=== PATIENT | male | born 1950 | race Caucasian/White ===

== ENCOUNTER 2018-09-26 13:04 | Inpatient (IN) | payer MEDICARE, OTHER ==
[2018-09-26] MEDS: NS 0.9% 1000 ML* 1,000 ML IV ONE ×2 (13:32→13:44)
[2018-09-26] MEDS ORDERED: Levofloxacin 750 MG IVPREMIX(* 750 MG/150 ML BAG IVPB ONE (13:35)
[2018-09-26] MEDS ORDERED: NS 0.9% 1000 ML* 1,000 ML IV ONE ×4 (13:35→23:45)
--- NOTE | 2018-09-26 13:45 | ED ---
Shortness of Breath - HPI Summary HPI Summary: A 68 y/o male brought in by [facility] presents to [facility] with a chief complaint of SOB on 09/26/18. He has been sitting in a chair for 4 days. He also c/o cough. He denies any current fevers but states he has had fevers in the past. He lives at home with his . He has a Hx of throat cancer and is in remission. He denies a Hx of A-fib. - History of Current Complaint Hx Obtained From: Patient, EMS Onset/Duration: Sudden Onset, Lasting Days, Still Present Current Severity: Moderate Dyspnea At: Rest Aggrevating Factors: Nothing Alleviating Factors: Nothing Associated Signs & Symptoms: Cough (Nonproductive) - Allergy/Home Medications Allergies/Adverse Reactions: Allergies Allergy/AdvReac Type Severity Reaction Status Date / Time No Known Allergies Allergy Verified 05/10/13 14:25 Home Medications: Home Medications Levothyroxine TAB* [Synthroid TAB*] 75 mcg PO 0800 09/26/18 [History Confirmed 09/26/18] Levothyroxine TAB* [Synthroid TAB*] 75 mcg PO SEE INSTRUCTIONS 09/26/18 [ History Confirmed 09/26/18] Valsartan/HCTZ 160/12.5(NF) [Diovan HCT 160/12.5 (NF)] 1 tab PO DAILY 09/26/18 [ History Confirmed 09/26/18] amLODIPine TAB* [Norvasc 5 mg TAB*] 10 mg PO DAILY 09/26/18 [History Confirmed 09/26/18] PMH/Surg Hx/FS Hx/Imm Hx Musculoskeletal History: Reports: Hx Rheumatoid Arthritis - CLEARED UP PER PATIENT Sensory History: Denies: Hx Deafness - Cancer History Cancer Type, Location and Year: NECK CA Hx Chemotherapy: Yes - Surgical History Surgery Procedure, Year, and Place: 2008 RESECTION OF RIGHT SIDE OF NECK FOR CA Infectious Disease History: No Infectious Disease History: Denies: Traveled Outside the [place] in Last 30 Days - Family History Known Family History: Negative: Blood Disorder - Social History Hx Tobacco Use: No Review of Systems Negative: Fever Positive: Shortness Of Breath, Cough All Other Systems Reviewed And Are Negative: Yes Physical Exam - Summary Physical Exam Summary: Appearance: The patient is well-nourished in no acute distress and in no acute pain. Skin: Tense HEENT: The head is normocephalic and atraumatic. The pupils are equal and reactive. The conjunctivae are clear and without drainage. Nares are patent and without drainage. Mouth reveals moist mucous membranes and the throat is without erythema and exudate. The external ears are intact. The ear canals are patent and without drainage. The tympanic membranes are intact. Neck: The neck is supple with full range of motion and non-tender. There are no carotid bruits. There is no neck vein distension. Respiratory: Chest is non-tender. Decreased breath sounds left upper respiratory sounds in lung campos Cardiovascular:irregulary irregular HR. There is no murmur or rub auscultated. There is no peripheral edema and pulses are symmetrical and equal. Abdomen: The abdomen is soft and non-tender. There are normal bowel sounds heard in all four quadrants and there is no organomegaly palpated. Musculoskeletal: There is no back tenderness noted. Extremities are non-tender with full range of motion. There is good capillary refill. There is no peripheral edema or calf tenderness elicited. Neurological: Patient is alert and oriented to person, place and time. The patient has symmetrical motor strength in all four extremities. Cranial nerves are grossly intact. Deep tendon reflexes are symmetrical and equal in all four extremities. Psychiatric: The patient has an appropriate affect and does not exhibit any anxiety or depression. Triage Information Reviewed: Yes Vital Signs On Initial Exam: Initial Vitals Temp Pulse Resp BP Pulse Ox 98.0 F 91 25 82/49 72 09/26/18 13:28 09/26/18 13:28 09/26/18 13:28 09/26/18 13:28 09/26/18 13:28 Vital Signs Reviewed: Yes Diagnostics - Vital Signs Vital Signs Temp Pulse Resp BP Pulse Ox 09/26/18 13:28 98.0 F 91 25 82/49 72 - Laboratory Result Diagrams: 09/26/18 14:05 09/26/18 14:05 Lab Statement: Any lab studies that have been ordered have been reviewed, and results considered in the medical decision making process. - Radiology CXR Radiology Interpretation Completed By: Radiologist Summary of Radiographic Findings: NEW LEFT LUNG INFILTRATE AND PLEURAL EFFUSION. RECOMMEND FOLLOW-UP CHEST. X-RAYS TO RESOLUTION. ED physician has reviewed this imaging report. - EKG 13:29 Cardiac Rate: Other Rate - Atrial Fibrillation at 91 bpm EKG Rhythm: Atrial Fibrillation Summary of EKG Findings: A-fib with controlled response. Re-Evaluation - Re-Evaluation First Eval Re-Evaluation Time: 13:25 Change: Unchanged Comment: BP 67 systolic bilateral radial pulses but he reportedly is feeling better. Course/Dx - Course Course Of Treatment: Mr. Horn presented to the emergency department by ambulance with a rather vague story. He had apparently been mostly sitting in a chair for the last 3 or 4 days secondary to shortness of breath. He was a bit pale on presentation with a somewhat low blood pressure and no tachycardia. He wasn't very good historian. IVs were initiated and he was given IV fluid while labs and chest x-ray obtained. He was noted to have a large left sided infiltrate on chest x-ray as well as a leukocytosis and a new renal failure. His BUN was almost 100 and his creatinine was 2-1/2 which was new from the summer. However his ratio was about 30 and this seem likely to be all from dehydration. Fluids were continued and his pressures remained soft although he was never tachycardic after the first liter of fluid his color returned and he was more awake and cooperative. He was given Levaquin IV after the x-ray was obtained as well. The hospitalist service was contacted and Dr. Mares consult to Dr. Crump into the department and evaluated the patient. - Diagnoses Provider Diagnoses: PNA (pneumonia), Sepsis - Physician Notifications Discussed Care of Patient With: Nellie Mares Time Discussed With Above Provider: 13:40 Instructed by Provider To: Admit As Inpatient - Critical Care Time Critical Care Time: 30-74 min Discharge - Sign-Out/Discharge Documenting (check all that apply): Patient Departure - admit - Discharge Plan Condition: Fair Disposition: ADMITTED TO [facility] - Billing Disposition and Condition Condition: FAIR Disposition: Admitted to [facility] - Attestation Statements Document Initiated by Scribe: Yes Documenting Scribe: Sebastien Lpoes Provider For Whom Angel is Documenting (Include Credential): Khalif King MD Scribe Attestation: Sebastien Harman, scribed for Khalif King MD on 09/26/18 at 2100. Scribe Documentation Reviewed: Yes Provider Attestation: The documentation as recorded by the Sebastien zavala accurately reflects the service I personally performed and the decisions made by me, Khalif King MD Status of Scribe Document: Viewed
[2018-09-26 14:27] LABS: Hematocrit 39 % (42-52); Hemoglobin 12.5 g/dl (14.0-18.0); Mean Corpuscular HGB Conc 32 g/dl (31-36); Mean Corpuscular Hemoglobin 29 pg (27-31); Mean Corpuscular Volume 90 fL (80-94); Mean Platelet Volume 7.9 fL (7.4-10.4); Platelet Count 309 10^3/ul (150-450); Red Blood Count 4.29 10^6/ul (4.00-5.40); Red Cell Distribution Width 15 % (10.5-15); White Blood Count 19.7 10^3/ul (3.5-10.8)
[2018-09-26 14:29] LABS: INR 1.1 (0.77-1.02)
[2018-09-26 14:42] LABS: Albumin 3.1 g/dL (3.2-5.2); BUN/Creatinine Ratio 28.4 (8-20); C Reactive Protein 366.29 mg/L (<8.01); Calcium 8.5 mg/dL (8.6-10.3); EGFR Non-African American 17.8 (>60); Globulin 3.1 g/dL (2-4); Potassium 4.3 mmol/L (3.5-5.0); Total Bilirubin 0.8 mg/dL (0.2-1.0); Total Protein 6.2 g/dL (6.4-8.9)
[2018-09-26 14:45] LABS: ABS Basophils 0.1 10^3/ul (0-0.2); ABS Eosinophils 0 10^3/ul (0-0.6); ABS Lymphocytes 0.3 10^3/ul (1.0-4.8); ABS Monocytes 1.1 10^3/ul (0-0.8); ABS Neutrophils 18.1 10^3/ul (1.5-7.7)
[2018-09-26 14:47] LABS: Immature Granulocytes 9 % (0-9); Lymphocytes % 1 %; Monocytes % 2 %; Neutrophil % 88 %
[2018-09-26 14:49] LABS: ABS Neutrophils 19.1 10^3/ul (1.5-7.7)
[2018-09-26 15:26] LABS: TSH (Thyroid Stimulating Horm) 5.16 mcIU/mL (0.34-5.60)
[2018-09-26] MEDS ORDERED: Norepinephrine 16MCG/ML IVPRE* 4,000 MCG/250 ML BAG IV ONE (15:54)
[2018-09-26] MEDS ORDERED: Norepinephrine 16MCG/ML IVPRE* 4,000 MCG/250 ML BAG IV SCH ×2 (16:00)
[2018-09-26 16:43] LABS: Urine Appearance Cloudy; Urine Bilirubin Negative (Negative); Urine Blood Negative (Negative); Urine Color Yellow; Urine Glucose Negative (Negative); Urine Ketones Negative (Negative); Urine Nitrite Negative (Negative); Urine Protein Negative (Negative); Urine Specific Gravity 1.015 (1.010-1.030); Urine Urobilinogen Negative (Negative)
[2018-09-26] MEDS ORDERED: Ondansetron INJ* 2 MG/ML VIAL IV PRN (16:51)
--- NOTE | 2018-09-26 16:56 | CONSULT ---
Consult Consult: Consultation Note -- Critical Care Requesting Physician: Dr Mares Reason for consult: septic shock, pneumonia Limitations in history/physical: none Date of consult: 09/26/2018 HPI: 68y M w/pmhx of HTN, Hypothyroidism, Throat cancer s/p Right throat resection 2008; comes to ER for fatigue and not feeling well. States he has been at home and in chair since yesterday. As per family , he has been tired all week and probably worse yesterday. They do not live with him. He states no fever/chills. cough+, no sputum/sob/cp. no nausea/vom/diarrhea. poor po intake+ . tired+, fatigue+. no cramps. no dizziness/syncope. no recent admissions, no influenza/pneumococcal vaccine given. no recent travel outside or sick contacts. In Er, he was tmax 98, hypotensive 80s, tachycardic, placed on NC. Started on sepsis protocol, IV abx. CXR demosntrated left sided effusion/ infiltrate+. He was subsequently started on IV levophed after 4-5 L of NS given without much effect. noted to have low urine output in ER. Sister at bedside also giving more information. ROS: negative except for pertinent positives mentioned above. PMHx: HTN, Hypothyroidism, Throat cancer s/p Right throat resection 2008 PSHx: Right neck resection 2008 for throat Ca Family History: negative Social History: Alcohol-none, Smoking-active, Drug use-none Allergies: Allergies Allergy/AdvReac Type Severity Reaction Status Date / Time No Known Allergies Allergy Verified 05/10/13 14:25 Home Medications: Levothyroxine TAB* [Synthroid TAB*] 75 mcg PO 0800 09/26/18 [History Confirmed 09/26/18] Levothyroxine TAB* [Synthroid TAB*] 75 mcg PO SEE INSTRUCTIONS 09/26/18 [ History Confirmed 09/26/18] Valsartan/HCTZ 160/12.5(NF) [Diovan HCT 160/12.5 (NF)] 1 tab PO DAILY 09/26/18 [ History Confirmed 09/26/18] amLODIPine TAB* [Norvasc 5 mg TAB*] 10 mg PO DAILY 09/26/18 [History Confirmed 09/26/18] Tele: NSR Vitals: Vital Signs Temp 98.0 F 09/26/18 13:05 Pulse 90 09/26/18 16:10 Resp 20 09/26/18 14:30 BP 105/62 09/26/18 16:10 Pulse Ox 100 09/26/18 16:10 Intake & Output 09/25/18 09/26/18 09/26/18 18:59 06:59 18:59 Intake Total 4150 Balance 4150 Weight 72.575 kg Intake: IV Fluids 4150 O2/Vent: NC 2 L Infusions: Levophed 6, NS bolus Current Medications: Acetaminophen (Tylenol Tab*) 650 mg PO Q4H PRN PRN Reason: FEVER/PAIN Albuterol/Ipratropium (Duoneb (Albuterol 2.5 Mg/Ipratropium 0.5 Mg)) 1 neb INH [id number] AWAKE PRN PRN Reason: sob/wheexing Heparin Sodium (Porcine) (Heparin Vial(*)) 5,000 units SUBCUT Q8HR TANMAY Levofloxacin/Dextrose (Levaquin 250 Mg Ivpremx(*)) 250 mg in 50 mls @ 50 mls/ hr IVPB Q24H TANMAY Norepinephrine Bitartrate 4 mg (/ Sodium Chloride) 254 mls @ 22.86 mls/hr IV .INITIAL RATE TANMAY; Protocol Physical Exam: General: awake, alert, no distress, no diaphoresis Head: normocephalic, atraumatic HEENT: no pallor, no icterus, DRY mucous membranes Neck: soft, supple, no jvd, no stridor CVS: normal rate, regular, no murmur Resp: bilateral air entry, left lower lobe rhales++, no wheeze, no rhonchi, no acc muscle use Abdomen: soft, nontender, nondistended, bowel sounds present Ext: pulses+, warm, no edema Skin: intact, DRY Neuro: awake, alert, orientedx3, moving all extremities, no gross focal deficit Labs: Laboratory Results - last 24 hr 09/26/18 09/26/18 09/26/18 14:05 14:05 14:05 WBC 19.7 H RBC 4.29 Hgb 12.5 L Hct 39 L MCV 90 MCH 29 MCHC 32 RDW 15 Plt Count 309 MPV 7.9 Neut % (Auto) Not Reportable Lymph % (Auto) Not Reportable Bulloch % (Auto) Not Reportable Eos % (Auto) Not Reportable Baso % (Auto) Not Reportable Absolute Neuts (auto) 18.1 H Absolute Lymphs (auto) 0.3 L Absolute Monos (auto) 1.1 H Absolute Eos (auto) 0 Absolute Basos (auto) 0.1 Absolute Nucleated RBC Not Reportable Immature Gran % 9 Neutrophils % 88 Band Neutrophils % 9 H Lymphocytes % 1 Monocytes % 2 Nucleated RBC % Not Reportable Abs Neuts (Manual) 19.1 H Abs Lymphs (Manual) 0.2 L Abs Monocytes (Manual) 0.4 Normal RBC Morphology Normal INR (Anticoag Therapy) Sodium 132 L Potassium 4.3 Chloride 100 L Carbon Dioxide 20 L Anion Gap 12 H BUN 98 H Creatinine 3.45 H Est GFR ( Amer) 21.5 Est GFR (Non-Af Amer) 17.8 BUN/Creatinine Ratio 28.4 H Glucose 134 H Lactic Acid 2.1 H* Calcium 8.5 L Magnesium 2.0 Total Bilirubin 0.80 AST 14 ALT 14 Alkaline Phosphatase 74 Total Creatine Kinase 21 Troponin I 0.02 C-Reactive Protein 366.29 H B-Natriuretic Peptide Total Protein 6.2 L Albumin 3.1 L Globulin 3.1 Albumin/Globulin Ratio 1.0 TSH 5.16 Urine Color Urine Appearance Urine pH Ur Specific [place] Urine Protein Urine Ketones Urine Blood Urine Nitrate Urine Bilirubin Urine Urobilinogen Ur Leukocyte Esterase Urine Glucose 09/26/18 09/26/18 09/26/18 14:05 14:05 16:28 WBC RBC Hgb Hct MCV MCH MCHC RDW Plt Count MPV Neut % (Auto) Lymph % (Auto) Bulloch % (Auto) Eos % (Auto) Baso % (Auto) Absolute Neuts (auto) Absolute Lymphs (auto) Absolute Monos (auto) Absolute Eos (auto) Absolute Basos (auto) Absolute Nucleated RBC Immature Gran % Neutrophils % Band Neutrophils % Lymphocytes % Monocytes % Nucleated RBC % Abs Neuts (Manual) Abs Lymphs (Manual) Abs Monocytes (Manual) Normal RBC Morphology INR (Anticoag Therapy) 1.10 H Sodium Potassium Chloride Carbon Dioxide Anion Gap BUN Creatinine Est GFR ( Amer) Est GFR (Non-Af Amer) BUN/Creatinine Ratio Glucose Lactic Acid Calcium Magnesium Total Bilirubin AST ALT Alkaline Phosphatase Total Creatine Kinase Troponin I C-Reactive Protein B-Natriuretic Peptide 171 H Total Protein Albumin Globulin Albumin/Globulin Ratio TSH Urine Color Yellow Urine Appearance Cloudy Urine pH 5.0 Ur Specific [place] 1.015 Urine Protein Negative Urine Ketones Negative Urine Blood Negative Urine Nitrate Negative Urine Bilirubin Negative Urine Urobilinogen Negative Ur Leukocyte Esterase Negative Urine Glucose Negative Imaging: CXR 09/26 - left sided lower lobe infiltrate/effusion Assessment: 68y M w/pmhx of HTN, Hypothyroidism, Throat cancer s/p Right throat resection 2008; comes to ER for fatigue and not feeling well. States he has been at home and in chair since yesterday. As per family , he has been tired all week and probably worse yesterday. They do not live with him. He states no fever/chills. cough+, no sputum/sob/cp. no nausea/vom/diarrhea. poor po intake+ . tired+, fatigue+. no cramps. no dizziness/syncope. no recent admissions, no influenza/pneumococcal vaccine given. no recent travel outside or sick contacts. In Er, he was tmax 98, hypotensive 80s, tachycardic, placed on NC. Started on sepsis protocol, IV abx. CXR demosntrated left sided effusion/ infiltrate+. He was subsequently started on IV levophed after 4-5 L of NS given without much effect. noted to have low urine output in ER. Sister at bedside also giving more information. -Severe Sepsis with Shock -Left lower lobe pneumonia with pleural effusion -ISABEL -Hypovolemia h/o throat ca s/p neck dissection 2008 Plan: Neuro- awake/alert. delirium prec. avoid bdz. CVS- severe sepsis, shock+. s/p 4-5L NS, now on levophed. Maintain MAP 60-65 with SBP>90. Monitor urine output. Start NS 75cc/hr. Trend LA. IV abx. hold antihypertensives. TTE at bedside to be performed to eval overall LV functiion. Central line, check mixed venous o2 sat. Resp- on 2 L NC, no distress. no wheezing. bronchodilators prn. h/o smoking+, nicotine patch prn if needed. IV abx for CAP coverage. Send influenza swab. Sputum culture. Will ultrasound left lung to eval for effusion. Possible CT chest. ID- tmax 98. wbc 19 with bandemia 11. CXR left effusion/infiltrate+. sputum+. hypotensive with ISABEL. no recent admissions, with throat Ca years back. check influenza. send legionella/strept/myco ag. s/p Levaquin IV in ER. Change to Ceftriaxone 1gm daily and Azithromycin 500mg daily tomorrow AM. GI- regular unrestricted. he states soem difficulty swallowing at times. obtain formal swallow to eval if any diet modification necessary otherwise. GI proph Renal- ISABEL likely from poor po intake, volume depletion and hypotension/shock. IVF bolus, IVF hydration NS. IV pressors to maintain perfusion. Rowan+ to be placed. monitor urine output. Mild acidosis+, negative LA, likely from ISABEL. Hyponatremia+, 2/2 to poor intake. Heme- hg 12. plt stable. DVT prohp with heparin/scd. Endo- check hba1c and tsh. Musculsk- pressure ulcer prophylaxis. Bedrest. Wounds- none Nutrition- regular diet DVT prophylaxis: heparin sq/scd GI prophylaxis: h2b Central Line: no Arterial Line: no Rowan Cathetor: yes Disposition: ICU for septic shock Code Status: full code Total Critical Care time is 50 minutes, excluding procedures/teaching Josias Crump MD [employer] (Electronically Signed)
--- NOTE | 2018-09-26 18:28 | PN ---
Progress Note - Progress Note Date of Service: 09/26/18 Note: Central Line Procedure Note Indication: venous access, frequent blood draws Diagnosis: septic shock, pneumonia Performed by: Josias Crump MD Consent: Informed ; placed in bedside chart Risks of procedure were explained if possible, all risks of pain/discomfort, bleeding, infection, PTX, Hemotx, need for chest tube, air/wire embolism, vessel injury, , and failed procedure disclosed and understanding verbalized [place] Protocol: Time-out was performed and the correct patient and site were verified - Prior labs/history was reviewed prior to procedure - Full sterile precautions with chlorhexidine/full drapes/gowns/gloves utilized - Right Femoral Vein visualized with ultrasound - Vessel accessed under ultrasound guidance with return of nonpulsatile blood. A guidewire was passed into vessel and confirmed in vessel with ultrasound. 1 attempt was made to access vessel. Vessel was dilated and cathetor was passed over wire into vessel. All ports demonstrated good blood return and flushed. Catheter was sutured to site and dressing applied. Adequate hemostasis was achieved EBL <5 cc No immediate complications noted, patient tolerated procedure well. Procedure Note - Left Subclavien vein was attempted for Central line placement; access obtained but after loosing access, attempted to locate vein again but not able to , mild hematoma while in trendelenburg position. hematoma resolved after 1-2 min. No resp distress or hemodyn changes noted. Site changed to Right femoral vein site as above procedure note dictates. CXR to eval for any PTX from left SC attempt. Josias Crump MD Title I Coordinator (Electronically Signed)
--- NOTE | 2018-09-26 18:29 | PN ---
Progress Note - Progress Note Date of Service: 09/26/18 Note: Arterial Line Procedure Note Indication: invasive hemodynamic monitoring Diagnosis: septic shock, pneumonia Performed by: Josias Crump MD Consent: Emergent [place] Protocol: Time-out was performed and the correct patient and site were verified - Prior labs/history was reviewed prior to procedure - Full sterile precautions with chlorhexidine/full drapes/gowns/gloves utilized - Right femoral artery visualized with US - Vessel accessed with return of pulsatile blood. One attempt was made to access vessel. A cathetor was threaded over wire into vessel. Good arterial waveform was observed on monitor. - Arterial Catheter was sutured to site; dressing applied to site. EBL <5 cc No immediate complications noted, patient tolerated procedure well. Josias Crump MD School Office Assistant (Electronically Signed)
[2018-09-26] MEDS: Heparin VIAL(*) 5000 UNITS/ML VIAL (FIVE THOUSAND) SUBCUT SCH (22:05)
--- NOTE | 2018-09-26 22:24 | HP ---
CC: Dr. Laguerre; Dr. Crump.* HISTORY AND PHYSICAL: DATE OF ADMISSION: 09/26/18 TIME OF ADMISSION: 4 o'clock p.m. CHIEF COMPLAINT: "I was out of it." HISTORY OF PRESENT ILLNESS: This is a 68-year-old man with history of hypertension and hypothyroidism and throat cancer, who presented to the emergency department after his partner insisted because he has been so "out of it" for the last week. He has trouble describing many more of his symptoms and he is quite drowsy. His sister is in the room and helped to provide some of the history. He reports going to [place] last weekend to visit his partner in the hospital and he thinks he picked an infection there. Over the past week , he said he has had shivers and he has mostly been sitting in his chair for the past week with weakness and just feeling not like himself. He also has had a cough productive of brown sputum for 1 week. He does not think he felt feverish. He complained of diarrhea for the past week and ongoing lethargy. He denies headache, abdominal pain, chest pain, shortness of breath, or skin changes. PAST MEDICAL HISTORY: 1. Hypertension. 2. Hypothyroidism. 3. He has history of throat cancer for which he had a dissection and radiation. He cannot tell me much more about his throat cancer. PAST SURGICAL HISTORY: Dr. Schultz did his throat cancer surgery. SOCIAL HISTORY: He smokes 10 to 15 cigarettes per day. He denies alcohol or other illicit drug use. His emergency contact is his partner, Brenda. Brenda' s phone number is [phone]. REVIEW OF SYSTEMS: Also positive for poor appetite and weight loss over the past week. Remainder of the 14-point review of systems is negative other than the HPI. PHYSICAL EXAMINATION GENERAL: Thin, ill-appearing man who appears older than his stated age. VITAL SIGNS: Temperature 98 degrees, heart rate 100, pulse ox100% on Vapotherm , his initial blood pressure was 82/49, after 4 L of IV fluid, his blood pressure is 84/48. HEENT: His pupils are 2 mm bilaterally and reactive to light. His oral mucosa is dry. His posterior pharynx is coated with thick scherer, brown sputum and mottled. NECK: No JVP. No adenopathy. His right neck has old incisions and is atrophied. LUNGS: He has rhonchi on the right. CHEST: He is in a regular rhythm. No murmurs. ABDOMEN: Soft, nontender, and nondistended. EXTREMITIES: No edema. No rashes or skin changes. His extremities are cool. NEUROLOGIC: He is oriented x3 and follows all commands. He answers all my questions, but is drowsy. LABORATORY DATA/DIAGNOSTIC STUDIES: White blood cells 19.7, hemoglobin 12.5, platelets 309. INR 1.1. Sodium 132, potassium 4.3, chloride 100, bicarb 20, BUN 98, creatinine 3.45, glucose 134. Lactic acid 2.1. Troponin 0.02. TSH 5.16. Chest x-ray, new left lung infiltrate and pleural effusion, recommended followup chest x-rays to resolution. EKG is atrial flutter versus atrial fib? It is in normal axis with normal intervals except for [place] interval and no ST or T wave changes. ASSESSMENT AND PLAN: This is a 68-year-old man with history of hypertension and throat cancer who presents to the emergency department with 1 week of cough and lethargy and is found to have a new pneumonia, hypotension, and hypoxia. 1. Severe sepsis/Septic Shock with evidence of end-organ damage and acute kidney injury with a pulmonary source. He has been given levofloxacin in the emergency department and has already received 4 L of fluids and remains hypotensive at this time. I have contacted Dr. Crump and requested a central line placement and I have started peripheral Levophed at 6 mcg/hour. After the central line is placed, we will be able to increase the rate and titrate up to a goal MAP of over 60. Blood cultures have been sent. I am also sending sputum , throat, and urine cultures. He needs a Rowan catheter for "in and out monitoring" and admission to the ICU for vasopressor support. 2. New onset of atrial fibrillation. His EKG is not completely convincing of AFib, so I am repeating an EKG and getting an echo for tomorrow. As of now, his CHADS2-VASc score is 2. So, he would be recommended for anticoagulation; however, I am repeating EKG to confirm the diagnosis of atrial fibrillation. 3. Acute hypoxic respiratory failure. He is currently requiring Vapotherm and he is agreeable to intubation should it be required. His work is breathing is comfortable right now. I am treating him with antibiotics and nebulizers as needed. He has a long smoking history, though he does not carry a diagnosis of chronic obstructive pulmonary disease or asthma. He may have some underlying parenchymal disease predisposing him to worsening respiratory failure. 4. Acute renal failure. I suspect this is related to volume depletion and severe sepsis. Again, he has received 4 L of normal saline in the emergency department and I am inserting a Rowan catheter for urine output monitoring. 5. Hypertension. His antihypertensives are on hold in the setting of severe sepsis. 6. Tobacco use. He declines a nicotine patch. 7. DVT prophylaxis. Heparin subcu. 8. Diet. Unrestrictive as tolerated. 9. Mr. Horn is being admitted to the ICU with a consultation by Dr. Crump and he agrees to accept the patient under his care. [id number]/[facility] #: [id number] MTDD
[2018-09-26] MEDS ORDERED: Succinylcholine* 20 MG/ML 10 ML VIAL ONE (23:10)
[2018-09-26] MEDS ORDERED: Etomidate* 2 MG/ML 20 ML VIAL (40 MG) ONE (23:16)
[2018-09-26] MEDS ORDERED: Propofol* 100 ML ONE (23:18)
[2018-09-26] MEDS: Propofol* 100 ML IV SCH (23:20)
--- NOTE | 2018-09-26 23:27 | PN ---
Progress Note - Progress Note Date of Service: 09/26/18 Note: Asked to see pt due to hypoxia despite maxed out vapotherm settings. Pt placed on BiPAP with plan to intubate. Dr. Lo intubated on 1st attempt. OG placed. Following intubation the patient developed increased HR and BP (had been hypotensive). He began to cough and a significant amount of sputum was suctioned out. It appears he had a mucous plug as no breath sounds were initially heard at the left base, after suctioning, decreased breath sounds heard at L base.
[2018-09-26] MEDS ORDERED: LORazepam INJ* 2 MG/ML 1 ML VIAL IV PUSH ONE (23:30)
[2018-09-26] MEDS ORDERED: LORazepam INJ* 2 MG/ML 1 ML VIAL ONE (23:33)
--- NOTE | 2018-09-27 00:46 | ED ---
Progress - Progress Note Progress Note: Time: 0 I was called by ICU nurses and hospitalist, Dr. Hsu to intubate patient. Procedure note: Endotracheal intubation, Using etomidate and succinyl choline for RSI. Using Glidescope, endotracheal tube #8. Was passed between the vocal cords under indirect visualization using Glidescope. Lip line at 23 cm. Capnography color change is positive for endotracheal placement. Bilateral breath sounds. No complications. Re-Evaluation - Re-Evaluation First Eval Re-Evaluation Time: 13:25 Change: Unchanged Comment: BP 67 systolic bilateral radial pulses but he reportedly is feeling better. Course/Dx - Course Course Of Treatment: Mr. Horn presented to the emergency department by ambulance with a rather vague story. He had apparently been mostly sitting in a chair for the last 3 or 4 days secondary to shortness of breath. He was a bit pale on presentation with a somewhat low blood pressure and no tachycardia. He wasn't very good historian. IVs were initiated and he was given IV fluid while labs and chest x-ray obtained. He was noted to have a large left sided infiltrate on chest x-ray as well as a leukocytosis and a new renal failure. His BUN was almost 100 and his creatinine was 2-1/2 which was new from the summer. However his ratio was about 30 and this seem likely to be all from dehydration. Fluids were continued and his pressures remained soft although he was never tachycardic after the first liter of fluid his color returned and he was more awake and cooperative. He was given Levaquin IV after the x-ray was obtained as well. The hospitalist service was contacted and Dr. Mares consult to Dr. Crump into the department and evaluated the patient. - Diagnoses Provider Diagnoses: PNA (pneumonia), Sepsis - Provider Notifications Time Discussed With Above Provider: 13:40 Instructed by Provider To: Admit As Inpatient - Critical Care Time Critical Care Time: 30-74 min Discharge - Sign-Out/Discharge Documenting (check all that apply): Patient Departure - Discharge Plan Condition: Fair Disposition: ADMITTED TO [facility] - Billing Disposition and Condition Condition: FAIR Disposition: Admitted to [facility]
[2018-09-27] MEDS: NS 0.9% 250 ML* 250 ML with Norepinephrine VIAL* 4 MG IV SCH ×4 (03:13→06:26)
[2018-09-27 05:29] LABS: Hematocrit 38 % (42-52); Hemoglobin 12.1 g/dl (14.0-18.0); Mean Corpuscular HGB Conc 32 g/dl (31-36); Mean Corpuscular Hemoglobin 29 pg (27-31); Mean Corpuscular Volume 89 fL (80-94); Mean Platelet Volume 7.8 fL (7.4-10.4); Platelet Count 443 10^3/ul (150-450); Red Blood Count 4.23 10^6/ul (4.00-5.40); Red Cell Distribution Width 15 % (10.5-15); White Blood Count 32.2 10^3/ul (3.5-10.8)
[2018-09-27] MEDS: Propofol* 100 ML IV SCH ×3 (05:29→19:55)
[2018-09-27 05:46] LABS: BUN/Creatinine Ratio 36.7 (8-20); Calcium 8.5 mg/dL (8.6-10.3); EGFR Non-African American 26.4 (>60); Potassium 4.6 mmol/L (3.5-5.0)
[2018-09-27] MEDS: Levothyroxine TAB* 75 MCG TAB PO SCH (05:50)
[2018-09-27] MEDS: Heparin VIAL(*) 5000 UNITS/ML VIAL (FIVE THOUSAND) SUBCUT SCH ×3 (05:50→23:42)
[2018-09-27 06:02] LABS: TSH (Thyroid Stimulating Horm) 5.08 mcIU/mL (0.34-5.60)
[2018-09-27] MEDS ORDERED: Pantoprazole IV* 40 MG IV SCH (08:00)
[2018-09-27] MEDS: Famotidine IV* 10 MG/ML 2 ML (20 mg) IV SLOW PU SCH (08:06)
[2018-09-27] MEDS: Azithromycin IV(*) 500 MG in NS 0.9% 250 ML* 250 ML IVPB SCH (08:06)
[2018-09-27] MEDS: cefTRIAXone(*) 1 GM in NS 0.9% 50 ML* 50 ML IVPB SCH (09:42)
[2018-09-27] MEDS: NOREPINEPHRINE IV SCH ×2 (09:46→19:29)
[2018-09-27] MEDS: NS 0.9% IV SCH ×2 (09:46→19:29)
[2018-09-27] MEDS: Vasopressin* 100 UNITS in D5W 250 ML BAG* 245 ML IVPB SCH (10:39)
--- NOTE | 2018-09-27 12:01 | PN ---
Progress Note - Progress Note Date of Service: 09/27/18 Note: Progress Note -- Critical Care 24 hour events: -intubated overnight for hypoxic resp failure, failure to clear secretions -on levophed, added vaso now -sedated on propofol -tmax 100.9, was tachy, now 80-90s; in Afib since yesterday; BP stable, on pressors -on 70% with peep 10 -making urine Tele: afib, rate controlled Vitals: Vital Signs Temp 98.2 F 09/27/18 11:15 Pulse 87 09/27/18 11:15 Resp 16 09/27/18 11:00 BP 113/74 09/27/18 11:00 Pulse Ox 96 09/27/18 11:15 Intake & Output 09/26/18 09/27/18 09/27/18 18:59 06:59 18:59 Intake Total 4150 1972 278 Output Total 530 835 222 Balance 3620 1137 56 Weight 73.1 kg 74.4 kg Intake: IV Fluids 4150 990 NS (0.9%) 990 IVPB 278 azithromycin 278 Medicated IV 732 CC - Norepinephrine/ 643 Levophed CC - Propofol/Diprivan 89 Oral 250 Output: Rowan 530 835 222 O2/Vent: AC 70% , peep 10 Infusions: Levophed 20, vaso 2.4, NS 75. propofol Current Medications: Acetaminophen (Tylenol Tab*) 650 mg PO Q4H PRN PRN Reason: FEVER/PAIN Albuterol (Ventolin 2.5 Mg/3 Ml Neb.Patricia*) 2.5 mg INH Q4H PRN PRN Reason: SOB/WHEEZING Albuterol/Ipratropium (Duoneb (Albuterol 2.5 Mg/Ipratropium 0.5 Mg)) 1 neb INH [id number] AWAKE PRN PRN Reason: sob/wheexing Famotidine (Pepcid Iv*) 20 mg IV SLOW PU DAILY [facility] Last Admin: 09/27/18 08:06 Dose: 20 mg Heparin Sodium (Porcine) (Heparin Vial(*)) 5,000 units SUBCUT Q8HR [facility] Last Admin: 09/27/18 05:50 Dose: 5,000 units Ceftriaxone Sodium 1 gm/ (Sodium Chloride) 50 mls @ 200 mls/hr IVPB Q24H [facility] Last Admin: 09/27/18 09:42 Dose: 200 mls/hr Azithromycin 500 mg/ Sodium (Chloride) 250 mls @ 250 mls/hr IVPB Q24H [facility] Last Admin: 09/27/18 08:06 Dose: 250 mls/hr Propofol (Diprivan*) 100 mls @ 4.386 mls/hr IV .(Initial Rate) [facility]; Protocol Last Admin: 09/27/18 05:29 Dose: 17.5 mls/hr Norepinephrine Bitartrate 8 mg (/ Sodium Chloride) 500 mls @ 45 mls/hr IV Q4H [facility]; Protocol Last Admin: 09/27/18 09:46 Dose: 75 mls/hr Vasopressin 100 units/ (Dextrose) 250 mls @ 6 mls/hr IVPB Q24H [facility]; Protocol Last Admin: 09/27/18 10:39 Dose: 6 mls/hr Sodium Chloride (Ns 0.9% 1000 Ml*) 1,000 mls @ 75 mls/hr IV PER RATE [facility] Influenza Virus Vaccine (Fluarix *Quad* 2018-*) 0.5 ml IM .ONCE ONE Stop: 09/29/18 09:01 Levothyroxine Sodium (Synthroid Tab*) 75 mcg PO 0600 [facility] Last Admin: 09/27/18 05:50 Dose: 75 mcg Ondansetron HCl (Zofran Inj*) 4 mg IV Q6H PRN PRN Reason: NAUSEA Physical Exam: General: intubated, sedated Head: normocephalic, atraumatic HEENT: no pallor, no icterus, DRY mucous membranes Neck: soft, supple, no jvd CVS: normal rate, irregular, no murmur Resp: bilateral air entry, left lower lobe rhales++, no wheeze, no rhonchi, no acc muscle use Abdomen: soft, nontender, nondistended, bowel sounds present Ext: pulses+, warm, no edema Skin: intact, DRY Neuro: intubated, sedated Labs: Laboratory Results - last 24 hr 09/26/18 09/26/18 09/26/18 14:05 14:05 14:05 WBC 19.7 H RBC 4.29 Hgb 12.5 L Hct 39 L MCV 90 MCH 29 MCHC 32 RDW 15 Plt Count 309 MPV 7.9 Neut % (Auto) Not Reportable Lymph % (Auto) Not Reportable [place] % (Auto) Not Reportable Eos % (Auto) Not Reportable Baso % (Auto) Not Reportable Absolute Neuts (auto) 18.1 H Absolute Lymphs (auto) 0.3 L Absolute Monos (auto) 1.1 H Absolute Eos (auto) 0 Absolute Basos (auto) 0.1 Absolute Nucleated RBC Not Reportable Immature Gran % 9 Neutrophils % 88 Band Neutrophils % 9 H Lymphocytes % 1 Monocytes % 2 Nucleated RBC % Not Reportable Abs Neuts (Manual) 19.1 H Abs Lymphs (Manual) 0.2 L Abs Monocytes (Manual) 0.4 Normal RBC Morphology Normal INR (Anticoag Therapy) Patient Temperature ABG pH ABG pH (Temp Correct) ABG pCO2 ABG pCO2 (Temp Corrct ABG pO2 ABG pO2 (Temp Correct ABG HCO3 ABG O2 Saturation ABG Base Excess Respiration Rate O2 Delivery Device Ventilator Type Vent Mode FiO2 Inspiratory Time PEEP Pressure Support Pressure Control EPAP IPAP BiPAP Sodium 132 L Potassium 4.3 Chloride 100 L Carbon Dioxide 20 L Anion Gap 12 H BUN 98 H Creatinine 3.45 H Est GFR ( Amer) 21.5 Est GFR (Non-Af Amer) 17.8 BUN/Creatinine Ratio 28.4 H Glucose 134 H Hemoglobin A1c Lactic Acid 2.1 H* Calcium 8.5 L Magnesium 2.0 Total Bilirubin 0.80 AST 14 ALT 14 Alkaline Phosphatase 74 Total Creatine Kinase 21 Troponin I 0.02 C-Reactive Protein 366.29 H B-Natriuretic Peptide Total Protein 6.2 L Albumin 3.1 L Globulin 3.1 Albumin/Globulin Ratio 1.0 TSH 5.16 Urine Color Urine Appearance Urine pH Ur Specific [place] Urine Protein Urine Ketones Urine Blood Urine Nitrate Urine Bilirubin Urine Urobilinogen Ur Leukocyte Esterase Urine Glucose 09/26/18 09/26/18 09/26/18 14:05 14:05 16:28 WBC RBC Hgb Hct MCV MCH MCHC RDW Plt Count MPV Neut % (Auto) Lymph % (Auto) [place] % (Auto) Eos % (Auto) Baso % (Auto) Absolute Neuts (auto) Absolute Lymphs (auto) Absolute Monos (auto) Absolute Eos (auto) Absolute Basos (auto) Absolute Nucleated RBC Immature Gran % Neutrophils % Band Neutrophils % Lymphocytes % Monocytes % Nucleated RBC % Abs Neuts (Manual) Abs Lymphs (Manual) Abs Monocytes (Manual) Normal RBC Morphology INR (Anticoag Therapy) 1.10 H Patient Temperature ABG pH ABG pH (Temp Correct) ABG pCO2 ABG pCO2 (Temp Corrct ABG pO2 ABG pO2 (Temp Correct ABG HCO3 ABG O2 Saturation ABG Base Excess Respiration Rate O2 Delivery Device Ventilator Type Vent Mode FiO2 Inspiratory Time PEEP Pressure Support Pressure Control EPAP IPAP BiPAP Sodium Potassium Chloride Carbon Dioxide Anion Gap BUN Creatinine Est GFR ( Amer) Est GFR (Non-Af Amer) BUN/Creatinine Ratio Glucose Hemoglobin A1c Lactic Acid Calcium Magnesium Total Bilirubin AST ALT Alkaline Phosphatase Total Creatine Kinase Troponin I C-Reactive Protein B-Natriuretic Peptide 171 H Total Protein Albumin Globulin Albumin/Globulin Ratio TSH Urine Color Yellow Urine Appearance Cloudy Urine pH 5.0 Ur Specific [place] 1.015 Urine Protein Negative Urine Ketones Negative Urine Blood Negative Urine Nitrate Negative Urine Bilirubin Negative Urine Urobilinogen Negative Ur Leukocyte Esterase Negative Urine Glucose Negative 09/26/18 09/26/18 09/26/18 17:10 18:30 22:03 WBC RBC Hgb Hct MCV MCH MCHC RDW Plt Count MPV Neut % (Auto) Lymph % (Auto) [place] % (Auto) Eos % (Auto) Baso % (Auto) Absolute Neuts (auto) Absolute Lymphs (auto) Absolute Monos (auto) Absolute Eos (auto) Absolute Basos (auto) Absolute Nucleated RBC Immature Gran % Neutrophils % Band Neutrophils % Lymphocytes % Monocytes % Nucleated RBC % Abs Neuts (Manual) Abs Lymphs (Manual) Abs Monocytes (Manual) Normal RBC Morphology INR (Anticoag Therapy) Patient Temperature ABG pH ABG pH (Temp Correct) ABG pCO2 ABG pCO2 (Temp Corrct ABG pO2 ABG pO2 (Temp Correct ABG HCO3 ABG O2 Saturation ABG Base Excess Respiration Rate O2 Delivery Device Ventilator Type Vent Mode FiO2 Inspiratory Time PEEP Pressure Support Pressure Control EPAP IPAP BiPAP Sodium Potassium Chloride Carbon Dioxide Anion Gap BUN Creatinine Est GFR ( Amer) Est GFR (Non-Af Amer) BUN/Creatinine Ratio Glucose Hemoglobin A1c Lactic Acid 1.2 1.4 Calcium Magnesium Total Bilirubin AST ALT Alkaline Phosphatase Total Creatine Kinase Troponin I 0.02 C-Reactive Protein B-Natriuretic Peptide Total Protein Albumin Globulin Albumin/Globulin Ratio TSH Urine Color Urine Appearance Urine pH Ur Specific [place] Urine Protein Urine Ketones Urine Blood Urine Nitrate Urine Bilirubin Urine Urobilinogen Ur Leukocyte Esterase Urine Glucose 09/26/18 09/27/18 09/27/18 22:03 01:02 05:15 WBC RBC Hgb Hct MCV MCH MCHC RDW Plt Count MPV Neut % (Auto) Lymph % (Auto) [place] % (Auto) Eos % (Auto) Baso % (Auto) Absolute Neuts (auto) Absolute Lymphs (auto) Absolute Monos (auto) Absolute Eos (auto) Absolute Basos (auto) Absolute Nucleated RBC Immature Gran % Neutrophils % Band Neutrophils % Lymphocytes % Monocytes % Nucleated RBC % Abs Neuts (Manual) Abs Lymphs (Manual) Abs Monocytes (Manual) Normal RBC Morphology INR (Anticoag Therapy) Patient Temperature Not Reportable ABG pH 7.31 L ABG pH (Temp Correct) Not Reportable ABG pCO2 29 L ABG pCO2 (Temp Corrct Not Reportable ABG pO2 96 ABG pO2 (Temp Correct Not Reportable ABG HCO3 16.8 L ABG O2 Saturation 98.1 H ABG Base Excess -10.4 L Respiration Rate 12 O2 Delivery Device vent Ventilator Type Not Reportable Vent Mode Pcv FiO2 100 Inspiratory Time Not Reportable PEEP 10 Pressure Support Not Reportable Pressure Control Not Reportable EPAP Not Reportable IPAP Not Reportable BiPAP Not Reportable Sodium 132 L Potassium 4.6 Chloride 103 Carbon Dioxide 19 L Anion Gap 10 BUN 90 H Creatinine 2.45 H Est GFR ( Amer) 32.0 Est GFR (Non-Af Amer) 26.4 BUN/Creatinine Ratio 36.7 H Glucose 148 H Hemoglobin A1c Lactic Acid Calcium 8.5 L Magnesium Total Bilirubin AST ALT Alkaline Phosphatase Total Creatine Kinase 45 Troponin I 0.01 C-Reactive Protein B-Natriuretic Peptide Total Protein Albumin Globulin Albumin/Globulin Ratio TSH 5.08 Urine Color Urine Appearance Urine pH Ur Specific [place] Urine Protein Urine Ketones Urine Blood Urine Nitrate Urine Bilirubin Urine Urobilinogen Ur Leukocyte Esterase Urine Glucose 09/27/18 09/27/18 09/27/18 05:15 05:15 09:38 WBC 32.2 H RBC 4.23 Hgb 12.1 L Hct 38 L MCV 89 MCH 29 MCHC 32 RDW 15 Plt Count 443 MPV 7.8 Neut % (Auto) Lymph % (Auto) [place] % (Auto) Eos % (Auto) Baso % (Auto) Absolute Neuts (auto) Absolute Lymphs (auto) Absolute Monos (auto) Absolute Eos (auto) Absolute Basos (auto) Absolute Nucleated RBC Immature Gran % Neutrophils % Band Neutrophils % Lymphocytes % Monocytes % Nucleated RBC % Abs Neuts (Manual) Abs Lymphs (Manual) Abs Monocytes (Manual) Normal RBC Morphology INR (Anticoag Therapy) Patient Temperature Not Reportable ABG pH 7.31 L ABG pH (Temp Correct) Not Reportable ABG pCO2 32 L ABG pCO2 (Temp Corrct Not Reportable ABG pO2 140 H ABG pO2 (Temp Correct Not Reportable ABG HCO3 17.9 L ABG O2 Saturation 98.5 H ABG Base Excess -9.0 L Respiration Rate 19 O2 Delivery Device Ventilator Type Not Reportable Vent Mode Pcv+ FiO2 80 Inspiratory Time Not Reportable PEEP 10 Pressure Support Not Reportable Pressure Control Not Reportable EPAP Not Reportable IPAP Not Reportable BiPAP Not Reportable Sodium Potassium Chloride Carbon Dioxide Anion Gap BUN Creatinine Est GFR ( Amer) Est GFR (Non-Af Amer) BUN/Creatinine Ratio Glucose Hemoglobin A1c 6.2 H Lactic Acid Calcium Magnesium Total Bilirubin AST ALT Alkaline Phosphatase Total Creatine Kinase Troponin I C-Reactive Protein B-Natriuretic Peptide Total Protein Albumin Globulin Albumin/Globulin Ratio TSH Urine Color Urine Appearance Urine pH Ur Specific [place] Urine Protein Urine Ketones Urine Blood Urine Nitrate Urine Bilirubin Urine Urobilinogen Ur Leukocyte Esterase Urine Glucose Imaging: CXR 09/26 - left sided lower lobe infiltrate/effusion Assessment: 68y M w/pmhx of HTN, Hypothyroidism, Throat cancer s/p Right throat resection 2008; comes to ER for fatigue and not feeling well. States he has been at home and in chair since yesterday. As per family , he has been tired all week and probably worse yesterday. They do not live with him. He states no fever/chills. cough+, no sputum/sob/cp. no nausea/vom/diarrhea. poor po intake+ . tired+, fatigue+. no cramps. no dizziness/syncope. no recent admissions, no influenza/pneumococcal vaccine given. no recent travel outside or sick contacts. In Er, he was tmax 98, hypotensive 80s, tachycardic, placed on NC. Started on sepsis protocol, IV abx. CXR demosntrated left sided effusion/ infiltrate+. He was subsequently started on IV levophed after 4-5 L of NS given without much effect. noted to have low urine output in ER. Sister at bedside also giving more information. -Severe Sepsis with Shock -Left lower lobe Strept Pneumonia -Strept Bacteremia -acute hypoxic resp failure, intubated / -ISABEL -Hypovolemia h/o throat ca s/p neck dissection 2008 Plan: Neuro- sedated, on propofol. daily sedation vacation. delirium prec. CVS- severe sepsis, shock+. on max levo, added vasopressin. Maintain QAS67-71, SBP>90. NS 75cc/hr. -hold antihypertensives. TTE ordered to eval LV function Resp- intubated on 70% peep 10. Maintain peep. Titrate fio2 to keep sat>92%. Sputum with gram+. CXR left lower lobe pneumonia/effusion. Bedside US today to eval effusion. Pulm toilet. IV abx. Bronchodilators PRN. ID- tmax 100.8. wbc 19->32. Blood cx x2 with gram+, strept+. Strept urine Ag+. Sputum gram stain with gram+. Likely all strept pneumonia. Cont Ceftriaxone/ Azithromycin IV (day#2), changed from IV levaquin. GI- NPO. OGT+. Start Glucerna TF. GI proph Renal- ISABEL likely from poor po intake, volume depletion and ATN from hypotension /septic shock. Cr lower. Making urine. Mild acidosis, LA neg. K okay. Cont NS 75cc/hr. Overall positive balance. IV pressors. Rowan+. Heme- hg 12. plt stable. DVT prohp with heparin/scd. Endo- hba1c 6.2, borderline. will monitor fingerstick q8h for now. Musculsk- pressure ulcer prophylaxis. Bedrest. Wounds- none Nutrition- TF glucerna DVT prophylaxis: heparin sq/scd GI prophylaxis: h2b Central Line: yes, right fem 12/2 Arterial Line: yes, right fem 12/2 Rowan Cathetor: yes Disposition: ICU for septic shock/respiratory failure Updated sister on phone of current events/status. Code Status: full code Total Critical Care time is 45 minutes, excluding procedures/teaching Josias Crump MD [employer] (Electronically Signed)
[2018-09-27] MEDS: Chlorhexidine MOUTHWASH 0.12%* 15 ML UDC TOPICAL SCH ×4 (12:05→23:42)
[2018-09-27] MEDS: NS 0.9% 1000 ML* 1,000 ML IV SCH ×2 (12:35→23:39)
[2018-09-27] MEDS ORDERED: Levofloxacin 250 MG IVPREMX(*) 250 MG/50 ML BAG IVPB SCH (14:00)
--- NOTE | 2018-09-27 15:48 | ECHO ---
Patient: AVANI GIPSON [facility] Rec#: [id number] : 1950 Date: 09/27/2018 Age: 68y Height: 178 cm / 70.1 in Weight: 73 kg / 160.9 lbs Sex: M BSA: 1.9 Room#: ICU 9 Admit Date#: 09/26/2018 Type: Inpatient Referring: Nellie Mares MD Reading: Keanu Paz MD Credentialing Assistant: Marcella AltamiranoRDCS,RDMS Transthoracic Echocardiogram Indication: Respiratory Failure, ABN EKG, sepsis BP: 94/48 HR: 88 Rhythm: A-Fib Findings History: HTN, smoker, throat cancer, radiation. Technical Comments: The study quality is fair. The study is technically limited due to patient being intubated and on a ventilator. Left Ventricle: The left ventricular chamber size is normal. Mild concentric left ventricular hypertrophy is observed. There is global hypokinesis of the left ventricle with minor regional variation. There is moderately decreased left ventricular systolic function. The estimated ejection fraction is 35-40%. The assessment of diastolic function is non-diagnostic. Left Atrium: The left atrium is mildly dilated. Right Ventricle: The right ventricle wall thickness is mildly increased. The right ventricular cavity size is normal. The right ventricular global systolic function is mildly to moderately reduced. Right Atrium: The right atrial cavity size is normal. Aortic Valve: The aortic valve is trileaflet. The aortic valve leaflets are mildly thickened. There is no evidence of aortic regurgitation. There is no evidence of aortic stenosis. Mitral Valve: The mitral valve leaflets are mildly thickened. There is a trace of mitral regurgitation. There is no evidence of mitral stenosis. Tricuspid Valve: The tricuspid valve leaflets are normal. There is trace to mild tricuspid regurgitation. No pulmonary hypertension is noted. Pulmonic Valve: There is no evidence of pulmonic valve thickening. There is a trace pulmonic regurgitation. Pericardium: A trivial pericardial effusion is visualized. The pericardial effusion is seen adjacent to the right ventricle. Aorta: The ascending aorta is not well visualized. The aortic arch is not well visualized. The aortic root is normal in size. Pulmonary Artery: The main pulmonary artery is not well visualized. Venous: Unable to accurately comment on the size collapsibility of the IVC as the patient in known to be on mechanical ventilation. The inferior vena cava is dilated. Summary: There was not any prior study for comparison. Conclusions Mild concentric left ventricular hypertrophy is observed. There is moderately decreased left ventricular systolic function. The estimated ejection fraction is 35-40%. There is global hypokinesis of the left ventricle with minor regional variation. The right ventricular global systolic function is mildly to moderately reduced. There is no evidence of aortic stenosis. There is a trace of mitral regurgitation. There is trace to mild tricuspid regurgitation. A trivial pericardial effusion is visualized. Measurements Name Value Normal Range RVIDd (AP) 2D 3 cm (0.9 - 2.6) RVDdMajor (2D) 3.7 cm (2.2 - 4.4) RAd ISD 4CH 3.8 cm (3.4 - 4.9) RA (A4C)W 3.9 cm (2.9 - 4.6) IVSd (2D) 1.2 cm (0.6 - 1) LVPWd (2D) 1.2 cm (0.6 - 1) LVIDd (2D) 4.3 cm (3.6 - 5.4) LVIDs (2D) 3.6 cm - LV FS (2D) 35 % (25 - 45) Aortic Annulus 2 cm (1.4 - 2.6) Ao root diameter (2D) 3.2 cm (2.1 - 3.5) LA dimension (AP) 2D 3.7 cm (2.3 - 3.8) LAd ISD 4CH 4.8 cm (2.9 - 5.3) LA ISD 4CH W 5 cm (2.5 - 4.5) Name Value Normal Range LA ESV BP (A/L) index 39 ml/m2 - Name Value Normal Range MV E-wave Vmax 0.6 m/sec - MV deceleration time 166 msec - LV lateral e' Vmax 0.09 m/sec - LV E:e' lateral ratio 7 ratio - Name Value Normal Range AV Vmax 0.9 m/sec - AV peak gradient 3 mmHg - LVOT Vmax 0.6 m/sec - LVOT peak gradient 1.4 mmHg - Name Value Normal Range TR Vmax 2.4 m/sec - TR peak gradient 23 mmHg - RAP 8 mmHg - RVSP 31 mmHg - IVC diameter 2.5 cm - Name Value Normal Range PV Vmax 0.7 m/sec - PV peak gradient 2 mmHg -
[2018-09-27] MEDS: Norepinephrine VIAL* 8 MG in NS 0.9% 500 ML* 492 ML IV SCH ×2 (17:37→23:39)
[2018-09-27] MEDS ORDERED: Dextrose 50% Syringe 50 ML* 25 GM/50 ML SYRINGE IV PUSH PRN (20:42)
[2018-09-28] MEDS: Insulin LISPRO* 1 UNITS UNIT SUBCUT SCH ×5 (00:32→23:29)
[2018-09-28] MEDS: Propofol* 100 ML IV SCH ×4 (02:59→23:29)
[2018-09-28] MEDS: Chlorhexidine MOUTHWASH 0.12%* 15 ML UDC TOPICAL SCH ×6 (04:09→23:21)
[2018-09-28 05:25] LABS: Hematocrit 36 % (42-52); Hemoglobin 11.6 g/dl (14.0-18.0); Mean Corpuscular HGB Conc 32 g/dl (31-36); Mean Corpuscular Hemoglobin 29 pg (27-31); Mean Corpuscular Volume 89 fL (80-94); Mean Platelet Volume 7.5 fL (7.4-10.4); Platelet Count 320 10^3/ul (150-450); Red Blood Count 4.04 10^6/ul (4.00-5.40); Red Cell Distribution Width 15 % (10.5-15); White Blood Count 18.3 10^3/ul (3.5-10.8)
[2018-09-28] MEDS: Heparin VIAL(*) 5000 UNITS/ML VIAL (FIVE THOUSAND) SUBCUT SCH ×4 (05:27→23:21)
[2018-09-28] MEDS: Levothyroxine TAB* 75 MCG TAB PO SCH ×2 (05:39→06:29)
[2018-09-28 05:53] LABS: BUN/Creatinine Ratio 46.9 (8-20); Calcium 8.5 mg/dL (8.6-10.3); Potassium 4.2 mmol/L (3.5-5.0)
[2018-09-28] MEDS: Famotidine IV* 10 MG/ML 2 ML (20 mg) IV SLOW PU SCH (09:13)
[2018-09-28] MEDS: Azithromycin IV(*) 500 MG in NS 0.9% 250 ML* 250 ML IVPB SCH (09:13)
[2018-09-28] MEDS: Norepinephrine VIAL* 8 MG in NS 0.9% 500 ML* 492 ML IV SCH ×2 (10:03→19:42)
[2018-09-28] MEDS: cefTRIAXone(*) 1 GM in NS 0.9% 50 ML* 50 ML IVPB SCH (10:20)
--- NOTE | 2018-09-28 11:47 | PN ---
Progress Note - Progress Note Date of Service: 09/28/18 Note: Progress Note -- Critical Care 24 hour events: -intubated, sedated; on levo and vaso -afebrile, minimal secretions+ -making urine Tele: afib, rate controlled Vitals: Vital Signs Temp 98.2 F 09/27/18 11:15 Pulse 87 09/27/18 11:15 Resp 16 09/27/18 11:00 BP 113/74 09/27/18 11:00 Pulse Ox 96 09/27/18 11:15 Intake & Output 09/26/18 09/27/18 09/27/18 18:59 06:59 18:59 Intake Total 4150 1972 278 Output Total 530 835 222 Balance 3620 1137 56 Weight 73.1 kg 74.4 kg Intake: IV Fluids 4150 990 NS (0.9%) 990 IVPB 278 azithromycin 278 Medicated IV 732 CC - Norepinephrine/ 643 Levophed CC - Propofol/Diprivan 89 Oral 250 Output: Rowan 530 835 222 O2/Vent: AC 60% , peep 10 Infusions: Levophed 7, vaso 0.04, NS 75, propofol Current Medications: Acetaminophen (Tylenol Tab*) 650 mg PO Q4H PRN PRN Reason: FEVER/PAIN Albuterol (Ventolin 2.5 Mg/3 Ml Neb.Patricia*) 2.5 mg INH Q4H PRN PRN Reason: SOB/WHEEZING Albuterol/Ipratropium (Duoneb (Albuterol 2.5 Mg/Ipratropium 0.5 Mg)) 1 neb INH [id number] AWAKE PRN PRN Reason: sob/wheexing Chlorhexidine Gluconate (Peridex Mouth Wash 0.12%*) 15 ml TOPICAL Q4H [facility] Last Admin: 09/28/18 09:13 Dose: 15 ml Dextrose (D50w Syringe 50 Ml*) 12.5 gm IV PUSH .FOR FS < 60 - SS PRN PRN Reason: FS < 60 Famotidine (Pepcid Iv*) 20 mg IV SLOW PU DAILY [facility] Last Admin: 09/28/18 09:13 Dose: 20 mg Heparin Sodium (Porcine) (Heparin Vial(*)) 5,000 units SUBCUT Q8HR [facility] Last Admin: 09/28/18 05:27 Dose: 5,000 units Ceftriaxone Sodium 1 gm/ (Sodium Chloride) 50 mls @ 200 mls/hr IVPB Q24H [facility] Last Admin: 09/28/18 10:20 Dose: 200 mls/hr Azithromycin 500 mg/ Sodium (Chloride) 250 mls @ 250 mls/hr IVPB Q24H [facility] Last Admin: 09/28/18 09:13 Dose: 250 mls/hr Propofol (Diprivan*) 100 mls @ 4.386 mls/hr IV .(Initial Rate) [facility]; Protocol Last Admin: 09/28/18 11:17 Dose: 17.8 mls/hr Vasopressin 100 units/ (Dextrose) 250 mls @ 6 mls/hr IVPB Q24H [facility]; Protocol Last Admin: 09/27/18 10:39 Dose: 6 mls/hr Sodium Chloride (Ns 0.9% 1000 Ml*) 1,000 mls @ 75 mls/hr IV PER RATE [facility] Last Admin: 09/27/18 23:39 Dose: 75 mls/hr Norepinephrine Bitartrate 8 mg (/ Sodium Chloride) 500 mls @ 45 mls/hr IV Q6H [facility]; Protocol Last Admin: 09/28/18 10:03 Dose: 26.3 mls/hr Influenza Virus Vaccine (Fluarix *Quad* 2017-*) 0.5 ml IM .ONCE ONE Stop: 09/29/18 09:01 Insulin Human Lispro (Humalog*) 0 units SUBCUT FS Q6 ICU [facility]; Protocol Last Admin: 09/28/18 06:28 Dose: 1 units Levothyroxine Sodium (Synthroid Tab*) 75 mcg PO 0600 [facility] Last Admin: 09/28/18 06:29 Dose: 75 mcg Ondansetron HCl (Zofran Inj*) 4 mg IV Q6H PRN PRN Reason: NAUSEA Physical Exam: General: intubated, sedated Head: normocephalic, atraumatic HEENT: no pallor, no icterus, DRY mucous membranes Neck: soft, supple, no jvd CVS: normal rate, irregular, no murmur Resp: bilateral air entry, left lower lobe rhales++, no wheeze, no rhonchi, no acc muscle use Abdomen: soft, nontender, nondistended, bowel sounds present Ext: pulses+, warm, no edema Skin: intact, DRY Neuro: intubated, sedated Labs: Laboratory Results - last 24 hr 09/27/18 09/27/18 09/28/18 12:29 20:12 00:29 WBC RBC Hgb Hct MCV MCH MCHC RDW Plt Count MPV Sodium Potassium Chloride Carbon Dioxide Anion Gap BUN Creatinine Est GFR ( Amer) Est GFR (Non-Af Amer) BUN/Creatinine Ratio Glucose POC Glucose (mg/dL) 161 H 171 H 163 H Calcium 09/28/18 09/28/18 05:16 05:16 WBC 18.3 H RBC 4.04 Hgb 11.6 L Hct 36 L MCV 89 MCH 29 MCHC 32 RDW 15 Plt Count 320 MPV 7.5 Sodium 140 D Potassium 4.2 Chloride 112 H Carbon Dioxide 21 L Anion Gap 7 BUN 82 H Creatinine 1.75 H Est GFR ( Amer) 47.1 Est GFR (Non-Af Amer) 39.0 BUN/Creatinine Ratio 46.9 H Glucose 175 H POC Glucose (mg/dL) Calcium 8.5 L Microbiology 09/26/18 15:28 Throat Culture - Preliminary Throat Streptococcus Pneumoniae 09/26/18 14:35 Blood Culture - Preliminary Blood Venous Streptococcus Pneumoniae 09/26/18 14:35 Aerobic Blood Culture - Final Blood Venous Streptococcus Pneumoniae 09/27/18 08:08 Gram Stain - Final Sputum Trach 09/26/18 16:28 Gram Stain - Final Sputum Imaging: CXR 09/26 - left sided lower lobe infiltrate/effusion Assessment: 68y M w/pmhx of HTN, Hypothyroidism, Throat cancer s/p Right throat resection 2008; comes to ER for fatigue and not feeling well. States he has been at home and in chair since yesterday. As per family , he has been tired all week and probably worse yesterday. They do not live with him. He states no fever/chills. cough+, no sputum/sob/cp. no nausea/vom/diarrhea. poor po intake+ . tired+, fatigue+. no cramps. no dizziness/syncope. no recent admissions, no influenza/pneumococcal vaccine given. no recent travel outside or sick contacts. In Er, he was tmax 98, hypotensive 80s, tachycardic, placed on NC. Started on sepsis protocol, IV abx. CXR demosntrated left sided effusion/ infiltrate+. He was subsequently started on IV levophed after 4-5 L of NS given without much effect. noted to have low urine output in ER. Sister at bedside also giving more information. -Severe Sepsis with Shock -Left lower lobe Strept Pneumonia -Strept Bacteremia -acute hypoxic resp failure, intubated / -ISABEL -Hypovolemia -Acute LV systolic dysfunction h/o throat ca s/p neck dissection 2008 Plan: Neuro- sedated, on propofol. daily sedation vacation. delirium prec. CVS- severe sepsis, shock+. on levo, vasopressin. Maintain [id number], SBP>90. NS 75cc/hr. IV abx -TTE with mod LV systolic dysfunction ef 35-40%; unclear if new or old. Resp- intubated on 60% peep 10. Maintain peep. Titrate fio2 to keep sat>92%. ABG now. Sputum with gram+. CXR left lower lobe pneumonia/effusion. Pulm toilet. IV abx. Bronchodilators PRN. ID- tmax 98. wbc 18. Blood cx x2 with strept+. Strept urine Ag+. Sputum gram stain with gram+. Likely all strept pneumonia. Cont Ceftriaxone/Azithromycin IV (day#3) GI- TF glucerna. OGT+. GI proph Renal- ISABEL likely from poor po intake, volume depletion and ATN from hypotension /septic shock. Cr improving. Making urine. Mild acidosis, LA neg. K okay. Cont NS 75cc/hr. Overall positive balance. IV pressors. Rowan+. Heme- hg stable. plt stable. DVT prohp with heparin/scd. Endo- hba1c 6.2, pre-DM stage. will monitor fingerstick q6h Musculsk- pressure ulcer prophylaxis. Bedrest. Wounds- none Nutrition- TF glucerna DVT prophylaxis: heparin sq/scd GI prophylaxis: h2b Central Line: yes, right fem 12/2 Arterial Line: yes, right fem 12/2 Rowan Cathetor: yes Disposition: ICU for septic shock/respiratory failure Code Status: full code Total Critical Care time is 40 minutes, excluding procedures/teaching Josias Crump MD Target Trimmer (Electronically Signed)
[2018-09-28 14:28] LABS: Mycoplasma pneumoniae IgG Ab Positive (Negative); Mycoplasma pneumoniae IgM Ab Negative (Negative)
[2018-09-28] MEDS: NS 0.9% 1000 ML* 1,000 ML IV SCH (16:30)
[2018-09-28] MEDS: Vasopressin* 100 UNITS in D5W 250 ML BAG* 245 ML IVPB SCH ×3 (18:45→22:55)
[2018-09-28] MEDS: Acetaminophen TAB* 325 MG PO PRN (20:10)
[2018-09-29] MEDS ORDERED: fentaNYL* 50 MCG/ML 2 ML VIAL (100 MCG VIAL) IV SLOW PU PRN (01:10)
[2018-09-29] MEDS: Chlorhexidine MOUTHWASH 0.12%* 15 ML UDC TOPICAL SCH ×5 (04:10→22:25)
[2018-09-29] MEDS: Acetaminophen TAB* 325 MG PO PRN (04:11)
[2018-09-29] MEDS: Norepinephrine VIAL* 8 MG in NS 0.9% 500 ML* 492 ML IV SCH ×3 (04:22→13:33)
[2018-09-29 04:50] LABS: Hematocrit 35 % (42-52); Hemoglobin 11.3 g/dl (14.0-18.0); Mean Corpuscular HGB Conc 32 g/dl (31-36); Mean Corpuscular Hemoglobin 29 pg (27-31); Mean Corpuscular Volume 89 fL (80-94); Mean Platelet Volume 7.9 fL (7.4-10.4); Platelet Count 314 10^3/ul (150-450); Red Blood Count 3.96 10^6/ul (4.00-5.40); Red Cell Distribution Width 15 % (10.5-15); White Blood Count 11.2 10^3/ul (3.5-10.8)
[2018-09-29 05:11] LABS: Calcium 8.6 mg/dL (8.6-10.3); EGFR Non-African American 58.5 (>60); Magnesium 2.1 mg/dL (1.9-2.7); Potassium 3.9 mmol/L (3.5-5.0)
[2018-09-29] MEDS: Heparin VIAL(*) 5000 UNITS/ML VIAL (FIVE THOUSAND) SUBCUT SCH ×4 (05:24→22:26)
[2018-09-29] MEDS: Insulin LISPRO* 1 UNITS UNIT SUBCUT SCH ×4 (05:27→23:49)
[2018-09-29] MEDS: Levothyroxine TAB* 75 MCG TAB PO SCH (06:47)
[2018-09-29] MEDS: Famotidine IV* 10 MG/ML 2 ML (20 mg) IV SLOW PU SCH (07:58)
[2018-09-29] MEDS: Azithromycin IV(*) 500 MG in NS 0.9% 250 ML* 250 ML IVPB SCH (11:13)
--- NOTE | 2018-09-29 11:36 | PN ---
Progress Note - Progress Note Date of Service: 09/29/18 Note: Progress Note -- Critical Care 24 hour events: -intubated, sedated -on low dose levophed, off vaso -afebrile now Tele: afib, rate controlled Vitals: Vital Signs Temp 97.9 F 09/29/18 11:01 Pulse 75 09/29/18 11:01 Resp 13 09/29/18 09:00 BP 95/55 09/29/18 11:00 Pulse Ox 97 09/29/18 11:01 Intake & Output 09/28/18 09/29/18 09/29/18 18:59 06:59 18:59 Intake Total 800 2367 Output Total 1275 1130 326 Balance -475 1237 -326 Weight 78 kg Intake: IV Fluids 380 1042 NSS 30 1042 abx 100 azithromycin 250 Medicated IV 420 565 CC - Norepinephrine/ 238 174 Levophed CC - Propofol/Diprivan 128 204 rocephin 146 vasopressin 54 41 Oral 0 Tube Feeding 0 600 Tube Feeding Flush Amount 0 160 Output: Urine 110 Rowan 1275 1020 326 O2/Vent: AC 50% , peep 5 Infusions: Levophed 5-7, NS 75, propofol Current Medications: Acetaminophen (Tylenol Tab*) 650 mg PO Q4H PRN PRN Reason: FEVER/PAIN Last Admin: 09/29/18 04:11 Dose: 650 mg Albuterol (Ventolin 2.5 Mg/3 Ml Neb.Patricia*) 2.5 mg INH Q4H PRN PRN Reason: SOB/WHEEZING Albuterol/Ipratropium (Duoneb (Albuterol 2.5 Mg/Ipratropium 0.5 Mg)) 1 neb INH [id number] AWAKE PRN PRN Reason: sob/wheexing Chlorhexidine Gluconate (Peridex Mouth Wash 0.12%*) 15 ml TOPICAL Q4H [facility] Last Admin: 09/29/18 07:56 Dose: 15 ml Dextrose (D50w Syringe 50 Ml*) 12.5 gm IV PUSH .FOR FS < 60 - SS PRN PRN Reason: FS < 60 Famotidine (Pepcid Iv*) 20 mg IV SLOW PU DAILY [facility] Last Admin: 09/29/18 07:58 Dose: 20 mg Fentanyl Citrate (Fentanyl*) 25 mcg IV SLOW PU Q4H PRN PRN Reason: PAIN Last Admin: 09/29/18 01:37 Dose: 25 mcg Heparin Sodium (Porcine) (Heparin Vial(*)) 5,000 units SUBCUT Q8HR [facility] Last Admin: 09/29/18 06:41 Dose: 5,000 units Ceftriaxone Sodium 1 gm/ (Sodium Chloride) 50 mls @ 200 mls/hr IVPB Q24H [facility] Last Admin: 09/28/18 10:20 Dose: 200 mls/hr Azithromycin 500 mg/ Sodium (Chloride) 250 mls @ 250 mls/hr IVPB Q24H [facility] Last Admin: 09/29/18 11:13 Dose: 250 mls/hr Propofol (Diprivan*) 100 mls @ 4.386 mls/hr IV .(Initial Rate) [facility]; Protocol Last Admin: 09/28/18 23:29 Dose: 11.5 mls/hr Norepinephrine Bitartrate 8 mg (/ Sodium Chloride) 500 mls @ 45 mls/hr IV Q6H [facility]; Protocol Last Admin: 09/29/18 07:47 Dose: Not Given Sodium Chloride (Ns 0.45% 1000 Ml Bag*) 1,000 mls @ 75 mls/hr IV PER RATE [facility] Insulin Human Lispro (Humalog*) 0 units SUBCUT FS Q6 ICU [facility]; Protocol Last Admin: 09/29/18 05:27 Dose: Not Given Levothyroxine Sodium (Synthroid Tab*) 75 mcg PO 0600 [facility] Last Admin: 09/29/18 06:47 Dose: 75 mcg Ondansetron HCl (Zofran Inj*) 4 mg IV Q6H PRN PRN Reason: NAUSEA Physical Exam: General: intubated, sedated Head: normocephalic, atraumatic HEENT: no pallor, no icterus, DRY mucous membranes Neck: soft, supple, no jvd CVS: normal rate, irregular, no murmur Resp: bilateral air entry, left lower lobe rhales++, no wheeze, no rhonchi, no acc muscle use Abdomen: soft, nontender, nondistended, bowel sounds present Ext: pulses+, warm, no edema Skin: intact, DRY Neuro: intubated, sedated; follows commands on lower sedation Labs: Laboratory Results - last 24 hr 09/26/18 09/28/18 09/28/18 17:10 11:55 14:37 WBC RBC Hgb Hct MCV MCH MCHC RDW Plt Count MPV ABG pH 7.39 ABG pCO2 34 L ABG pO2 138 H ABG HCO3 22.1 ABG O2 Saturation 99.3 H ABG Base Excess -3.7 L Sodium Potassium Chloride Carbon Dioxide Anion Gap BUN Creatinine Est GFR ( Amer) Est GFR (Non-Af Amer) BUN/Creatinine Ratio Glucose POC Glucose (mg/dL) 150 H Calcium Magnesium Mycoplasma pneumon IgG Positive A Mycoplasma pneumon IgM Negative 09/28/18 09/28/18 09/29/18 18:37 23:14 04:35 WBC RBC Hgb Hct MCV MCH MCHC RDW Plt Count MPV ABG pH ABG pCO2 ABG pO2 ABG HCO3 ABG O2 Saturation ABG Base Excess Sodium 144 Potassium 3.9 Chloride 115 H Carbon Dioxide 23 Anion Gap 6 BUN 75 H Creatinine 1.23 H Est GFR ( Amer) 70.8 Est GFR (Non-Af Amer) 58.5 BUN/Creatinine Ratio 61.0 H Glucose 142 H POC Glucose (mg/dL) 170 H 160 H Calcium 8.6 Magnesium 2.1 Mycoplasma pneumon IgG Mycoplasma pneumon IgM 09/29/18 04:35 WBC 11.2 H RBC 3.96 L Hgb 11.3 L Hct 35 L MCV 89 MCH 29 MCHC 32 RDW 15 Plt Count 314 MPV 7.9 ABG pH ABG pCO2 ABG pO2 ABG HCO3 ABG O2 Saturation ABG Base Excess Sodium Potassium Chloride Carbon Dioxide Anion Gap BUN Creatinine Est GFR ( Amer) Est GFR (Non-Af Amer) BUN/Creatinine Ratio Glucose POC Glucose (mg/dL) Calcium Magnesium Mycoplasma pneumon IgG Mycoplasma pneumon IgM Microbiology 09/27/18 08:08 Gram Stain - Final Sputum Trach Sputum Culture - Final Normal Tram 09/26/18 14:35 Aerobic Blood Culture - Final Blood Venous Streptococcus Pneumoniae 09/26/18 14:35 Blood Culture - Preliminary Blood Venous Streptococcus Pneumoniae 09/26/18 15:28 Throat Culture - Final Throat Streptococcus Pneumoniae Haemophilus Influenzae 09/26/18 16:28 Gram Stain - Final Sputum Sputum Culture - Final Streptococcus Pneumoniae Normal Tram Imaging: CXR 09/26 - left sided lower lobe infiltrate/effusion Assessment: 68y M w/pmhx of HTN, Hypothyroidism, Throat cancer s/p Right throat resection 2008; comes to ER for fatigue and not feeling well. States he has been at home and in chair since yesterday. As per family , he has been tired all week and probably worse yesterday. They do not live with him. He states no fever/chills. cough+, no sputum/sob/cp. no nausea/vom/diarrhea. poor po intake+ . tired+, fatigue+. no cramps. no dizziness/syncope. no recent admissions, no influenza/pneumococcal vaccine given. no recent travel outside or sick contacts. In Er, he was tmax 98, hypotensive 80s, tachycardic, placed on NC. Started on sepsis protocol, IV abx. CXR demosntrated left sided effusion/ infiltrate+. He was subsequently started on IV levophed after 4-5 L of NS given without much effect. noted to have low urine output in ER. Sister at bedside also giving more information. -Severe Sepsis with Shock -Left lower lobe Strept Pneumonia -Strept Bacteremia -acute hypoxic resp failure, intubated 09/26 -ISABEL -Hypovolemia -Acute LV systolic dysfunction -new onset Afib h/o throat ca s/p neck dissection 2008 Plan: Neuro- sedated, wean propofol for vent weaning. daily sedation vacation. delirium prec. CVS- severe sepsis, shock+. on levo. Maintain [id number], SBP>90. change ivf to 1 /2ns 75cc/hr. IV abx -TTE with mod LV systolic dysfunction ef 35-40%; unclear if new or old. -new onset Afib, rate controlled; start IV heparin after extubation today Resp- intubated on 50% peep 5. Bedside US lung without pleural effusion. Titrate fio2 to keep sat>92%. Sputum with gram+. CXR left lower lobe pneumonia/ effusion. Pulm toilet. IV abx. Bronchodilators PRN. ID- tmax 98. wbc 11 Blood cx x2 with strept+. Strept urine Ag+. Sputum gram stain with gram+. Cont Ceftriaxone/Azithromycin IV (day#4). repat blood cx x2 today.l GI- TF glucerna, hold for weaning. OGT+. GI proph Renal- ISABEL improved, increased urine output likely from ATN diuretic phase. Na rising, change NS to 1/2 NS. K okay, no acidosis. Rowan+. Heme- hg stable. plt stable. DVT prohp with heparin/scd. Endo- pre-dm; fingerstick q6h. lispro q6h, BG<200 Musculsk- pressure ulcer prophylaxis. Bedrest. Wounds- none Nutrition- TF glucerna DVT prophylaxis: heparin sq/scd GI prophylaxis: h2b Central Line: yes, right fem 12/2 Arterial Line: yes, right fem 12/2 Rowan Cathetor: yes Disposition: ICU for septic shock/respiratory failure Code Status: full code Total Critical Care time is 40 minutes, excluding procedures/teaching Josias Crump MD Editorial Specialist (Electronically Signed)
[2018-09-29] MEDS: cefTRIAXone(*) 1 GM in NS 0.9% 50 ML* 50 ML IVPB SCH (12:45)
[2018-09-29] MEDS: NS 0.45% 1000 ML BAG* 1,000 ML IV SCH (13:33)
[2018-09-29] MEDS: Propofol* 100 ML IV SCH ×2 (18:17→23:05)
[2018-09-30] MEDS: Chlorhexidine MOUTHWASH 0.12%* 15 ML UDC TOPICAL SCH ×4 (00:50→12:29)
[2018-09-30] MEDS: Norepinephrine VIAL* 8 MG in NS 0.9% 500 ML* 492 ML IV SCH ×2 (02:07→08:40)
[2018-09-30] MEDS: NS 0.45% 1000 ML BAG* 1,000 ML IV SCH ×2 (02:37→21:52)
[2018-09-30] MEDS: Propofol* 100 ML IV SCH ×3 (02:37→21:36)
[2018-09-30] MEDS: Insulin LISPRO* 1 UNITS UNIT SUBCUT SCH ×3 (06:20→19:02)
[2018-09-30] MEDS: Heparin VIAL(*) 5000 UNITS/ML VIAL (FIVE THOUSAND) SUBCUT SCH (06:21)
[2018-09-30] MEDS: Levothyroxine TAB* 75 MCG TAB PO SCH (06:21)
[2018-09-30 06:22] LABS: Hematocrit 34 % (42-52); Hemoglobin 11.1 g/dl (14.0-18.0); Mean Corpuscular HGB Conc 33 g/dl (31-36); Mean Corpuscular Hemoglobin 29 pg (27-31); Mean Corpuscular Volume 89 fL (80-94); Mean Platelet Volume 7.6 fL (7.4-10.4); Platelet Count 277 10^3/ul (150-450); Red Blood Count 3.81 10^6/ul (4.00-5.40); Red Cell Distribution Width 15 % (10.5-15); White Blood Count 9.7 10^3/ul (3.5-10.8)
[2018-09-30 06:39] LABS: BUN/Creatinine Ratio 54.7 (8-20); Calcium 8.7 mg/dL (8.6-10.3); EGFR Non-African American 88.4 (>60); Magnesium 1.7 mg/dL (1.9-2.7)
[2018-09-30] MEDS: Famotidine IV* 10 MG/ML 2 ML (20 mg) IV SLOW PU SCH (08:21)
[2018-09-30] MEDS: Azithromycin IV(*) 500 MG in NS 0.9% 250 ML* 250 ML IVPB SCH (08:21)
[2018-09-30] MEDS: cefTRIAXone(*) 1 GM in NS 0.9% 50 ML* 50 ML IVPB SCH (10:23)
--- NOTE | 2018-09-30 12:27 | PN ---
Progress Note - Progress Note Date of Service: 09/30/18 Note: Progress Note -- Critical Care 24 hour events: -intubated this morning; weaned off sedation, followed commands, CPAP trial and extubated, on oximask now -afebrile, making urine -afib -off pressors Tele: afib, rate controlled Vitals: Vital Signs Temp 98.2 F 09/30/18 10:01 Pulse 90 09/30/18 10:01 Resp 16 09/30/18 10:00 BP 105/59 09/30/18 10:00 Pulse Ox 95 09/30/18 10:54 Intake & Output 09/29/18 09/30/18 09/30/18 18:59 06:59 18:59 Intake Total 2354 2012.7 Output Total 1186 1445 630 Balance 1168 567.7 -630 Weight 80.3 kg Intake: IV Fluids 984 982 NS (0.45%) 982 NSS 626 abx 358 IVPB 323 ABX - CEFTRIAXONE 260 abx 63 Medicated IV 351 291.7 CC - Norepinephrine/ 150 2.7 Levophed CC - Propofol/Diprivan 201 289 Tube Feeding 606 649 Tube Feeding Flush Amount 90 90 Output: Rowan 1186 1445 630 O2/Vent: AC 50%, now on oximask Infusions: 1/2NS 75 Current Medications: Acetaminophen (Tylenol Tab*) 650 mg PO Q4H PRN PRN Reason: FEVER/PAIN Last Admin: 09/29/18 04:11 Dose: 650 mg Albuterol (Ventolin 2.5 Mg/3 Ml Neb.Patricia*) 2.5 mg INH Q4H PRN PRN Reason: SOB/WHEEZING Albuterol/Ipratropium (Duoneb (Albuterol 2.5 Mg/Ipratropium 0.5 Mg)) 1 neb INH [id number] AWAKE PRN PRN Reason: sob/wheexing Dextrose (D50w Syringe 50 Ml*) 12.5 gm IV PUSH .FOR FS < 60 - SS PRN PRN Reason: FS < 60 Famotidine (Pepcid Tab*) 20 mg PO DAILY [facility] Heparin Sodium (Porcine) (Heparin Vial(*)) 5,000 units SUBCUT Q8HR [facility] Last Admin: 09/30/18 06:21 Dose: 5,000 units Ceftriaxone Sodium 1 gm/ (Sodium Chloride) 50 mls @ 200 mls/hr IVPB Q24H [facility] Last Admin: 09/30/18 10:23 Dose: 200 mls/hr Sodium Chloride (Ns 0.45% 1000 Ml Bag*) 1,000 mls @ 75 mls/hr IV PER RATE [facility] Last Admin: 09/30/18 02:37 Dose: 75 mls/hr Influenza Virus Vaccine (Fluarix *Quad* 2018-*) 0.5 ml IM .ONCE ONE Stop: 10/01/18 09:01 Insulin Human Lispro (Humalog*) 0 units SUBCUT FS Q6 ICU [facility]; Protocol Last Admin: 09/30/18 06:20 Dose: Not Given Levothyroxine Sodium (Synthroid Tab*) 75 mcg PO 0600 [facility] Last Admin: 09/30/18 06:21 Dose: 75 mcg Ondansetron HCl (Zofran Inj*) 4 mg IV Q6H PRN PRN Reason: NAUSEA Physical Exam: General: awake now; drowsy, but no distress, follows commands Head: normocephalic, atraumatic HEENT: no pallor, no icterus, DRY mucous membranes Neck: soft, supple, no jvd, no stridor CVS: normal rate, irregular, no murmur Resp: bilateral air entry, left lower lobe rhales mild, no wheeze, no rhonchi, no acc muscle use Abdomen: soft, nontender, nondistended, bowel sounds present Ext: pulses+, warm, no edema Skin: intact Neuro: awakens, drowsy, no distress, moves all ext Labs: Laboratory Results - last 24 hr 09/29/18 09/29/18 09/29/18 12:58 17:52 23:47 WBC RBC Hgb Hct MCV MCH MCHC RDW Plt Count MPV Sodium Potassium Chloride Carbon Dioxide Anion Gap BUN Creatinine Est GFR ( Amer) Est GFR (Non-Af Amer) BUN/Creatinine Ratio Glucose POC Glucose (mg/dL) 127 H 124 H 129 H Calcium Magnesium 09/30/18 09/30/18 09/30/18 06:14 06:14 06:15 WBC 9.7 RBC 3.81 L Hgb 11.1 L Hct 34 L MCV 89 MCH 29 MCHC 33 RDW 15 Plt Count 277 MPV 7.6 Sodium 145 Potassium 4.0 Chloride 115 H Carbon Dioxide 25 Anion Gap 5 BUN 47 H Creatinine 0.86 Est GFR ( Amer) 107.0 Est GFR (Non-Af Amer) 88.4 BUN/Creatinine Ratio 54.7 H Glucose 128 H POC Glucose (mg/dL) 140 H Calcium 8.7 Magnesium 1.7 L 09/30/18 12:01 WBC RBC Hgb Hct MCV MCH MCHC RDW Plt Count MPV Sodium Potassium Chloride Carbon Dioxide Anion Gap BUN Creatinine Est GFR ( Amer) Est GFR (Non-Af Amer) BUN/Creatinine Ratio Glucose POC Glucose (mg/dL) 113 H Calcium Magnesium Microbiology 09/28/18 12:53 Throat Culture - Final Throat YEAST Normal Tram 09/26/18 14:35 Blood Culture - Preliminary Blood Venous Streptococcus Pneumoniae 09/27/18 08:08 Gram Stain - Final Sputum Trach Sputum Culture - Final Normal Tram 09/26/18 14:35 Aerobic Blood Culture - Final Blood Venous Streptococcus Pneumoniae Imaging: CXR 09/26 - left sided lower lobe infiltrate/effusion Assessment: 68y M w/pmhx of HTN, Hypothyroidism, Throat cancer s/p Right throat resection 2008; comes to ER for fatigue and not feeling well. States he has been at home and in chair since yesterday. As per family , he has been tired all week and probably worse yesterday. They do not live with him. He states no fever/chills. cough+, no sputum/sob/cp. no nausea/vom/diarrhea. poor po intake+ . tired+, fatigue+. no cramps. no dizziness/syncope. no recent admissions, no influenza/pneumococcal vaccine given. no recent travel outside or sick contacts. In Er, he was tmax 98, hypotensive 80s, tachycardic, placed on NC. Started on sepsis protocol, IV abx. CXR demosntrated left sided effusion/ infiltrate+. He was subsequently started on IV levophed after 4-5 L of NS given without much effect. noted to have low urine output in ER. Sister at bedside also giving more information. -Severe Sepsis with Shock; improved -Left lower lobe Strept Pneumonia -Strept Bacteremia -acute hypoxic resp failure, intubated 09/26, ext 09/30 -ISABEL -Hypovolemia -Acute LV systolic dysfunction -new onset Afib h/o throat ca s/p neck dissection 2008 Plan: Neuro- d/c propfol. coming off sedation. follows commands. delirium prec. asp prec. CVS- severe sepsis, shock+. off pressors. making urine. cont 1/2ns 75cc/hr. IV abx -Afib, rate controlled; start IV heparin today -TTE with mod LV systolic dysfunction ef 35-40%; unclear if new or old. will need repeat TTE later. start BB once more stable. Resp- on oximask now; stable resp status. cough+. Titrate fio2 to keep sat>92%. -CXR today; cont IV abx. -Pulm toilet. Bronchodilators PRN. ID- tmax 98. wbc 9. Blood cx x2 with strept; repeat blood cx pending. Strept urine Ag+. Sputum with strept pneum+. TTE no vegetations -Cont Ceftriaxone IV (day#5). d/c azithromycin. GI- NPO. swallow eval later today. OGT out. GI proph Renal- ISABEL improved, CR normal, BUN decreasing. Still needs free water. Start PO if able. cont 1/2 NS 75cc/hr. Replete K and Mg as needed. IV MagS today. Cont Rowan+. Heme- hg stable. plt stable. DVT proph with heparin/scd. Endo- fingerstick q6h. lispro q6h, BG<200 Musculsk- pressure ulcer prophylaxis. Bedrest today, oob to chair tomorrow. Wounds- none Nutrition- NPO DVT prophylaxis: heparin sq/scd GI prophylaxis: h2b Central Line: yes, right fem 12/2 Arterial Line: yes, right fem 12/2 Rowan Cathetor: yes Disposition: ICU Code Status: full code Total Critical Care time is 40 minutes, excluding procedures/teaching Josias Crump MD Weft Straightener (Electronically Signed)
[2018-09-30 13:19] LABS: Activated Partial Thrombo Time 36.5 seconds (26.0-36.3); INR 0.98 (0.77-1.02)
[2018-09-30] MEDS: Heparin DRIP 25,000 UNITS(*) 25,000 UNITS/500 ML BAG IV SCH (13:56)
[2018-09-30] MEDS: Albuterol/Ipratropium NEB.SOL* Albuterol 2.5 MG/Ipratropium 0.5 MG 3 ML INH PRN (15:26)
--- NOTE | 2018-09-30 15:28 | PN ---
Progress Note - Progress Note Date of Service: 09/30/18 Note: Critical Care Extubated successfully CXR post extubation with improved left infiltrates He developed increasing hypoxia to 70s, not much tachypnea though. placed on hiflow 100% 40lpm; not much improvement, sats remains mid-low 80s cough+ but not very strong, able to bring up phlegm but NT suctioned mildly and orally. switched to NIV, sats improved slowly stat CXR with left lower lobe collapse and mediastinal shift noted will start mucomyst inh q4h x3 doses; give albuterol; ordered Bed Chest PT to help break up mucous. at risk of reintubation; sats improved; close monitoring; maintain ICU. BP stable, off pressors, tachycardic Started on IV heparin for Afib earlier, no bleeding noted. Josias Crump MD Junior Programmer
[2018-09-30] MEDS: Acetylcysteine INHALATION SOL* 200 MG/ML NEB.SOLN 10 ML INH SCH ×3 (15:35→23:25)
[2018-09-30] MEDS ORDERED: Propofol* 10 MG/ML 20 ML BTL ONE (16:08)
[2018-09-30] MEDS ORDERED: Norepinephrine VIAL* 1 MG/ML 4 ML VIAL ONE (16:09)
[2018-09-30] MEDS ORDERED: Etomidate* 2 MG/ML 20 ML VIAL (40 MG) ONE (16:09)
[2018-09-30] MEDS ORDERED: Propofol* 100 ML ONE (16:09)
[2018-09-30] MEDS ORDERED: Succinylcholine* 20 MG/ML 10 ML VIAL ONE (16:21)
[2018-09-30] MEDS ORDERED: fentaNYL* 50 MCG/ML 2 ML VIAL (100 MCG VIAL) ONE (16:45)
[2018-09-30] MEDS ORDERED: Sodium Bicarbonate 8.4%* 50 ML SYRINGE ONE (16:51)
[2018-09-30] MEDS: Midazolam* 1 MG/ML 2 ML VIAL (2 MG) ONE (16:56)
--- NOTE | 2018-09-30 17:42 | PN ---
Progress Note - Progress Note Date of Service: 09/30/18 Note: Endotracheal Intubation Procedure Note Indication: acute hypoxic respiratoyr fialure Diagnosis: acute hypoxic respiratory, pneumonia, mucous plugging Performed by: Dr Josias Crump Consent: Emergent Prior labs/imaging/history reviewed as needed. Patient preoxygenated/denitrogenated with 100% FiO2 using NIV Patient was medicated with etomidate 20mg IV x2, succinylcholine 50mg IV push, propofol 50mg IV for sedation Visualization of vocal cords with Grade 3 view obtained using MAC 4 glidescope. 8.0 ETT was passed through the vocal cords under direct visualization and confirmed with condensation, chest rise with bilateral breath sounds and positive color change x3 on qualitative capnography. ETT was secured at 24-25 cm at lip. Patient tolerated procedure without immediate complication. Post Procedure CXR: Pending Josias Crump MD Pourer (Electronically Signed)
--- NOTE | 2018-09-30 17:47 | PN ---
Progress Note - Progress Note Date of Service: 09/30/18 Note: Bronchoscopy with BAL / mucous plug removal - Procedure Note Indication: therapeutic bronchoscopy for resp failure, PNA, mucous plugging Diagnosis: acute hypoxic respiratory failure, strept pneumonia, sepsis, left lung collapsa Performed by: Dr Josias Crump Consent: Emergent due to critical nature/ hypoxia [place] Protocol: Time-out was performed and the correct patient and site were verified Procedure performed immediately after intubation Prior labs/imaging reviewed before procedure. Patient oxygenated with 100% Fi02, placed on VC ventilation Propofol and fentanyl and versed were used for sedation and analgesia Ambuscope inserted via ETT tube through adapter. FINDINGS -ETT clear, in good position above hamzah ~5cm -Excessive secretions were noted on the left lower lobe going into left upper lobe bronchus noted which were thick and adherent. Multiple passes with lavage using Normal saline and mucomyst were done. Multple passes and suctioning of thick clear mucous plugs along with other mild yellow substances, the airways were clear of furhter secretions. Therapeutic -Right mainstem and further lower/middle/upper lobe airways were clear of secretions. -No endobronchial lesions noted in proximal segments. -BAL performed from KEMAR/LLL segments. Specimens: no specimens were collected EBL: none significant Complications: No immediate complications during the procedure After removal of plugs, oxygen sats improved to 100%, BP stable, requiring low dose levophed likely 2/2 to sedation. Post Procedure CXR: Pending Josias Crump MD Security Tech (Electronically Signed)
--- NOTE | 2018-09-30 17:51 | PN ---
Progress Note - Progress Note Date of Service: 09/30/18 Note: Critical Care Patient not improving on NIV despite suctioning. Increased mottling, BP lower in 90-100s. He appears slihglty more lethargic. Given clinical status, no improvement in o2 sats (which were 80s), decision to intubate intubated at bedside successfully with glidescope mac 4 blade with 8.0 ett Sats in low 90s. Started on propofol for sedation, low dose levophed Given mucous plugging and acute hypoxia, emergent therapeutic bronchoscopy was performed with BAL and mucous plug removal of left lower/upper lobes successfully. Post procedure o2 sats 100% with downtitration of fio2 on vent. remains on low dose levophed, on propfol, whcih can be be lowered. updated at bedside of events, she understood. plan to keep intubated overnight; CXR now to eval status post intubation/bronch Plan to wena sedation and pressor in AM for attempt at extubation again. Total Critical Care time 50 min, not including procedures Total CC time for the day 90 min so far Josias Crump Md Hardware Sales Assistant (electronically signed)
[2018-09-30] MEDS ORDERED: NS 0.45% IV SCH (18:00)
[2018-09-30] MEDS ORDERED: fentaNYL* 50 MCG/ML 2 ML VIAL (100 MCG VIAL) IV SLOW PU ONE (18:00)
[2018-09-30] MEDS ORDERED: Succinylcholine* 20 MG/ML 10 ML VIAL IV ONE (18:00)
[2018-09-30] MEDS ORDERED: Propofol* 10 MG/ML 20 ML BTL IV ONE (18:00)
[2018-09-30] MEDS ORDERED: Etomidate* 2 MG/ML 20 ML VIAL (40 MG) IV ONE (18:00)
[2018-09-30] MEDS ORDERED: Midazolam* 1 MG/ML 2 ML VIAL (2 MG) IV SLOW PU ONE (18:00)
[2018-09-30] MEDS ORDERED: Norepinephrine 16MCG/ML IVPRE* 4,000 MCG/250 ML BAG IV SCH (19:00)
[2018-09-30] MEDS: Norepinephrine VIAL* 4 MG in NS 0.9% 250 ML* 246 ML IV SCH (19:00)
[2018-09-30] MEDS: Albuterol 2.5 MG/3 ML NEB.SOL* (0.083%) INH PRN ×2 (19:45→23:25)
[2018-10-01] MEDS: Insulin LISPRO* 1 UNITS UNIT SUBCUT SCH ×4 (00:48→17:33)
[2018-10-01] MEDS: Propofol* 100 ML IV SCH ×4 (04:11→21:40)
[2018-10-01 06:13] LABS: Hematocrit 33 % (42-52); Hemoglobin 10.7 g/dl (14.0-18.0); Mean Corpuscular HGB Conc 32 g/dl (31-36); Mean Corpuscular Hemoglobin 28 pg (27-31); Mean Corpuscular Volume 89 fL (80-94); Mean Platelet Volume 7.6 fL (7.4-10.4); Platelet Count 276 10^3/ul (150-450); Red Blood Count 3.77 10^6/ul (4.00-5.40); Red Cell Distribution Width 15 % (10.5-15); White Blood Count 14.7 10^3/ul (3.5-10.8)
[2018-10-01 06:30] LABS: BUN/Creatinine Ratio 37.2 (8-20); Calcium 8.2 mg/dL (8.6-10.3); EGFR Non-African American 88.4 (>60); Magnesium 1.6 mg/dL (1.9-2.7); Potassium 4.1 mmol/L (3.5-5.0)
[2018-10-01] MEDS: cefTRIAXone(*) 1 GM in NS 0.9% 50 ML* 50 ML IVPB SCH (09:50)
[2018-10-01] MEDS ORDERED: Chlorhexidine MOUTHWASH 0.12%* 15 ML UDC ONE (13:08)
[2018-10-01] MEDS: Norepinephrine VIAL* 4 MG in NS 0.9% 250 ML* 246 ML IV SCH (13:46)
--- NOTE | 2018-10-01 16:18 | PN ---
Date of Service: 10/01/18 - [facility] note Critical Care Services: Pt seen and examined at bedside, overnight events noted Pt was re-intubated yesterday evening for resp distress secondary to mucus plugging in LLL. Had vent asynchrony that improved with bronchoscopy and mucus clearance. CXR this am didnot show much improvement Is sedated with RASS score 1-2, responds to stimuli when sedation is decreased Vital Signs: Temp Pulse Resp BP SpO2 FiO2 98.8 F 54 14 96/50 95 40 10/01/18 15:00 10/01/18 15:00 10/01/18 13:00 10/01/18 15:00 10/01/18 15:00 10/01 12:20 Physical Exam: Gen: Pt in NAD, sedated on vent HEENT: ETT in place, PERRLA, No JVD Lungs: Good a/e b/l Cardiac: S1, S2+, regular Abdomen: Soft, BS+ Extremities: No edema Neuro: No focal deficits Skin: No rash Fluid Balance (Past 24 Hours): I= 1227 O= 1035 Net 192 Intake & Output 09/29/18 09/30/18 10/01/18 10/02/18 06:59 06:59 06:59 06:59 Intake Total 3167 4366.7 3189.3 1227.8 Output Total 2405 2631 2165 1035 Balance 762 1735.7 1024.3 192.8 Weight 171 lb 15.369 oz 177 lb 0.499 oz 171 lb 4.787 oz Intake: IV Fluids 1422 1966 2171 745 ABX - CEFTRIAXONE 55 NS (0.45%) 982 2171 666 NSS 1072 626 24 abx 100 358 azithromycin 250 IVPB 323 320 ABX - CEFTRIAXONE 260 60 abx 63 azithromycin 260 Medicated IV 985 642.7 698.3 482.8 CC - Norepinephrine/ 412 152.7 158 92.8 Levophed CC - Propofol/Diprivan 332 490 273 175 Heparin 267.3 215 rocephin 146 vasopressin 95 Oral 0 Tube Feeding 600 1255 Tube Feeding Flush Amount 160 180 Output: Urine 110 75 Rowan 2295 2631 2090 1035 Labs: Laboratory Results - last 24 hr 09/30/18 09/30/18 09/30/18 18:30 18:37 19:30 WBC RBC Hgb Hct MCV MCH MCHC RDW Plt Count MPV APTT 30.3 Patient Temperature Not Reportable ABG pH 7.41 ABG pH (Temp Correct) Not Reportable ABG pCO2 41 ABG pCO2 (Temp Corrct Not Reportable ABG pO2 112 H ABG pO2 (Temp Correct Not Reportable ABG HCO3 25.9 ABG O2 Saturation 99.0 H ABG Base Excess 1.2 Respiration Rate 26 O2 Delivery Device Vent Ventilator Type Not Reportable Vent Mode pcv FiO2 70 Inspiratory Time Not Reportable PEEP Not Reportable Pressure Support Not Reportable Pressure Control Not Reportable EPAP Not Reportable IPAP Not Reportable BiPAP Not Reportable Sodium Potassium Chloride Carbon Dioxide Anion Gap BUN Creatinine Est GFR ( Amer) Est GFR (Non-Af Amer) BUN/Creatinine Ratio Glucose POC Glucose (mg/dL) 139 H Calcium Magnesium 10/01/18 10/01/18 10/01/18 00:23 00:45 00:45 WBC RBC Hgb Hct MCV MCH MCHC RDW Plt Count MPV APTT 54.1 H Patient Temperature ABG pH ABG pH (Temp Correct) ABG pCO2 ABG pCO2 (Temp Corrct ABG pO2 ABG pO2 (Temp Correct ABG HCO3 ABG O2 Saturation ABG Base Excess Respiration Rate O2 Delivery Device Ventilator Type Vent Mode FiO2 Inspiratory Time PEEP Pressure Support Pressure Control EPAP IPAP BiPAP Sodium Potassium Chloride Carbon Dioxide Anion Gap BUN Creatinine Est GFR ( Amer) Est GFR (Non-Af Amer) BUN/Creatinine Ratio Glucose POC Glucose (mg/dL) 77 115 H Calcium Magnesium 10/01/18 10/01/18 10/01/18 05:58 06:00 06:00 WBC RBC Hgb Hct MCV MCH MCHC RDW Plt Count MPV APTT 60.9 H Patient Temperature ABG pH ABG pH (Temp Correct) ABG pCO2 ABG pCO2 (Temp Corrct ABG pO2 ABG pO2 (Temp Correct ABG HCO3 ABG O2 Saturation ABG Base Excess Respiration Rate O2 Delivery Device Ventilator Type Vent Mode FiO2 Inspiratory Time PEEP Pressure Support Pressure Control EPAP IPAP BiPAP Sodium 143 Potassium 4.1 Chloride 110 Carbon Dioxide 29 Anion Gap 4 BUN 32 H Creatinine 0.86 Est GFR ( Amer) 107.0 Est GFR (Non-Af Amer) 88.4 BUN/Creatinine Ratio 37.2 H Glucose 111 H POC Glucose (mg/dL) 119 H Calcium 8.2 L Magnesium 1.6 L 10/01/18 10/01/18 06:00 12:02 WBC 14.7 H RBC 3.77 L Hgb 10.7 L Hct 33 L MCV 89 MCH 28 MCHC 32 RDW 15 Plt Count 276 MPV 7.6 APTT Patient Temperature ABG pH ABG pH (Temp Correct) ABG pCO2 ABG pCO2 (Temp Corrct ABG pO2 ABG pO2 (Temp Correct ABG HCO3 ABG O2 Saturation ABG Base Excess Respiration Rate O2 Delivery Device Ventilator Type Vent Mode FiO2 Inspiratory Time PEEP Pressure Support Pressure Control EPAP IPAP BiPAP Sodium Potassium Chloride Carbon Dioxide Anion Gap BUN Creatinine Est GFR ( Amer) Est GFR (Non-Af Amer) BUN/Creatinine Ratio Glucose POC Glucose (mg/dL) 134 H Calcium Magnesium Studies: CXR was personally reviewed- ETT in place, left sided air space opacity unchanged Nutrition: Tube feeds Impression: 68y M w/pmhx of HTN, Hypothyroidism, Throat cancer s/p Right throat resection 2008; presented to ER for fatigue, malaise, no fever/chills. cough+, no sputum/ sob/cp. Pt being treated for sepsis sec to Strep PNA -Severe Sepsis with Shock -Left lower lobe Strep Pneumonia - Copious secretions and mucus plugging -Strep Bacteremia, resolved -Acute hypoxic resp failure, intubated 09/26, ext 09/30, reintubated 09/30 -ISABEL -Hypovolemia -Acute LV systolic dysfunction -New onset Afib, rate controlled now h/o throat ca s/p neck dissection 2008 Plan: Neuro- On propfol. Sedation vacation this am, toelrated well. Delirium prec. Asp prec. CVS- severe sepsis, shock+. Low dose Levophed. Cont 1/2ns 75cc/hr. -Afib, rate controlled; on IV heparin -TTE with mod LV systolic dysfunction ef 35-40%; unclear if new or old. will need repeat TTE for f/u. start BB once more stable. Resp- Reintubated for worsening resp distress post extubation, has thick secretions, bronch repeated today, thick secretions were suctioned. -CXR today; cont IV abx. -Pulm toilet. Bronchodilators PRN. ID- Afebrile, Blood cx x2 with strept; repeat blood cx negative. Strept urine Ag+. Sputum with strept pneum+. TTE no vegetations -Cont Ceftriaxone IV (day#6). completed azithromycin. GI- OGT- tube feeds, GI proph Renal- ISABEL improved, CR normal, BUN decreasing. cont 1/2 NS 75cc/hr. Replete K and Mg as needed. Cont Rowan+. Heme- hg stable. plt stable. DVT proph with heparin/scd. Endo- fingerstick q6h. lispro q6h, BG<200 Musculsk- pressure ulcer prophylaxis. Bedrest today, oob to chair tomorrow. Wounds- none Nutrition- NPO DVT prophylaxis: heparin sq/scd GI prophylaxis: h2b Central Line: yes, right fem 12/2 Arterial Line: yes, right fem 12/2 Rowan Cathetor: yes Disposition: ICU Code Status: full code Critical Care Time: 30 minutes excluding procedures
[2018-10-01] MEDS: Chlorhexidine MOUTHWASH 0.12%* 15 ML UDC TOPICAL SCH ×2 (16:32→20:07)
[2018-10-01] MEDS: Heparin DRIP 25,000 UNITS(*) 25,000 UNITS/500 ML BAG IV SCH (16:32)
[2018-10-01] MEDS: Levothyroxine TAB* 75 MCG TAB PO SCH (17:07)
[2018-10-01] MEDS: Famotidine TAB* 20 MG PO SCH (17:32)
[2018-10-01] MEDS ORDERED: fentaNYL* 50 MCG/ML 2 ML VIAL (100 MCG VIAL) IV SLOW PU ONE (20:15)
[2018-10-02] MEDS: NS 0.45% 1000 ML BAG* 1,000 ML IV SCH (00:30)
[2018-10-02] MEDS: Insulin LISPRO* 1 UNITS UNIT SUBCUT SCH ×4 (00:37→20:36)
[2018-10-02] MEDS: Chlorhexidine MOUTHWASH 0.12%* 15 ML UDC TOPICAL SCH ×6 (00:37→20:36)
--- NOTE | 2018-10-02 03:11 | PRO ---
BRONCHOSCOPY REPORT: DATE OF PROCEDURE: 10/01/18 PROCEDURE PERFORMED: Bronchoscopy, therapeutic for clearance of airway secretions. INDICATION: Thick mucus with airway collapse ANESTHESIA: Patient intubated and on propofol drip. DESCRIPTION OF PROCEDURE: Informed consent was obtained from the patient's significant other, Brenda Zarate, patient's domestic partner over phone as the patient is intubated and is sedated and not able to consent for himself. Patient was re-intubated yesterday due to worsening respiratory status from pneumonia. He has been having thick secretions and had left lower lobe collapse. Patient had a bronchoscopy yesterday with significant secretions that were suctioned out. Patient unable to be weaned, no significant change in chest x-ray, therefore repeat bronchoscopy was performed today. FiO2 was increased prior to the procedure, all vent alarms were readjusted. The patient on propofol and was comfortable during the procedure. Ambulatory bronchoscope was inserted through ET tube. Thick white secretions were noted into the ET tube and were suctioned out. There have been significant and copious secretions on both sides, which were suctioned out. Secretions were thick and white. The patient tolerated the procedure well. Vent settings were readjusted post procedure. [id number]/[facility] #: [id number] [facility]ANG[facility] HEALTHOlimpia
[2018-10-02] MEDS: Propofol* 100 ML IV SCH ×3 (03:13→21:55)
[2018-10-02] MEDS: Levothyroxine TAB* 75 MCG TAB PO SCH (06:04)
[2018-10-02 06:11] LABS: Hematocrit 33 % (42-52); Hemoglobin 10.7 g/dl (14.0-18.0); Mean Corpuscular HGB Conc 33 g/dl (31-36); Mean Corpuscular Hemoglobin 29 pg (27-31); Mean Corpuscular Volume 88 fL (80-94); Platelet Count 296 10^3/ul (150-450); Red Cell Distribution Width 15 % (10.5-15); White Blood Count 13.5 10^3/ul (3.5-10.8)
[2018-10-02] MEDS ORDERED: Alteplase (CATHFLO)* 2 MG VIAL IV ONE (06:22)
[2018-10-02 06:24] LABS: BUN/Creatinine Ratio 31.6 (8-20); Calcium 8.2 mg/dL (8.6-10.3); Magnesium 1.6 mg/dL (1.9-2.7); Potassium 3.8 mmol/L (3.5-5.0)
[2018-10-02] MEDS: Enoxaparin(*) 150 MG/ML 1 ML SYRINGE SUBCUT SCH (09:30)
[2018-10-02] MEDS: cefTRIAXone(*) 1 GM in NS 0.9% 50 ML* 50 ML IVPB SCH (09:30)
[2018-10-02] MEDS ORDERED: Magnesium Sulfate 2 GM IV* 2 GM/50 ML BAG IVPB ONE (10:45)
--- NOTE | 2018-10-02 11:31 | PRO ---
BRONCHOSCOPY REPORT: DATE OF PROCEDURE: 10/02/18 PROCEDURE PERFORMED: Bronchoscopy for clearance of secretions. ANESTHESIA: The patient on propofol drip, is on mechanical ventilation and is intubated. DESCRIPTION OF PROCEDURE: Informed consent was obtained from the patient's significant other over telephone after the risks and benefits were thoroughly explained. Ventilator settings were adjusted, FiO2 increased to 100%. An Ambu scope was used for the procedure. An Ambu scope was inserted after time-out was performed. The patient noted to have thick secretions pushing into the ET tube. Secretions were still copious, however, thin. Secretions were seen on both sides predominantly in the right lower lobe. Secretions were suctioned out. The patient tolerated the procedure well. Vent settings were adjusted back to what he was originally on after the procedure. Plan for spontaneous breathing trial and extubation today. [id number]/[facility] #: [id number] MTDD
[2018-10-02 11:35] LABS: Phosphorus 2.9 mg/dL (2.5-5.0)
[2018-10-02] MEDS: Famotidine TAB* 20 MG PO SCH (12:34)
--- NOTE | 2018-10-02 13:57 | PN ---
Date of Service: 10/02/18 - [facility] note Critical Care Services: Pt seen and examined at bedside. Pt remains intubated O/n events: Has been off Levophed drip, required this am at 2mcg Had episodes of bradycardia last night, HR around 60s this am Vital Signs: Temp Pulse Resp BP SpO2 FiO2 98.2 F 62 14 127/57 95 30 10/02/18 12:45 10/02/18 12:45 10/02/18 10:58 10/02/18 12:00 10/02/18 12:45 10/02 12:00 Physical Exam: Gen: Pt is sedated, opens eyes and moves extremities when off sedation HEENT:ETT in place, no JVD Lungs: Diminished air entry at bases R>L Cardiac: S1, S2+, regular Abdomen: Soft, BS+ Extremities: No edema Neuro: Sedated on Propofol Fluid Balance (Past 24 Hours): I= 2650 O= 2595 Net 55 Intake & Output 09/30/18 10/01/18 10/02/18 10/03/18 06:59 06:59 06:59 06:59 Intake Total 4366.7 3189.3 2650.8 Output Total 2631 2165 2595 450 Balance 1735.7 1024.3 55.8 -450 Weight 177 lb 0.499 oz 171 lb 4.787 oz 173 lb 11.588 oz Intake: IV Fluids 1966 2171 1842 ABX - CEFTRIAXONE 55 NS (0.45%) 982 2171 1763 NSS 626 24 abx 358 IVPB 323 320 ABX - CEFTRIAXONE 260 60 abx 63 azithromycin 260 Medicated IV 642.7 698.3 808.8 CC - Norepinephrine/ 152.7 158 121.8 Levophed CC - Propofol/Diprivan 490 273 472 Heparin 267.3 215 Tube Feeding 1255 Tube Feeding Flush Amount 180 Output: Urine 75 Rowan 2631 2090 2420 450 Suctioning 175 Labs: Laboratory Results - last 24 hr 10/01/18 10/02/18 10/02/18 17:31 00:37 05:57 WBC RBC Hgb Hct MCV MCH MCHC RDW Plt Count MPV Sodium Potassium Chloride Carbon Dioxide Anion Gap BUN Creatinine Est GFR ( Amer) Est GFR (Non-Af Amer) BUN/Creatinine Ratio Glucose POC Glucose (mg/dL) 118 H 104 H 110 H Calcium Phosphorus Magnesium 10/02/18 10/02/18 10/02/18 06:00 06:00 12:12 WBC 13.5 H RBC 3.70 L Hgb 10.7 L Hct 33 L MCV 88 MCH 29 MCHC 33 RDW 15 Plt Count 296 MPV 8.0 Sodium 140 Potassium 3.8 Chloride 107 Carbon Dioxide 28 Anion Gap 5 BUN 24 Creatinine 0.76 Est GFR ( Amer) 123.4 Est GFR (Non-Af Amer) 102.0 BUN/Creatinine Ratio 31.6 H Glucose 99 POC Glucose (mg/dL) 121 H Calcium 8.2 L Phosphorus 2.9 Magnesium 1.6 L Studies: No new studies Nutrition: Tube feeds, restart as no plan for extubation Impression: 68y M w/pmhx of HTN, Hypothyroidism, Throat cancer s/p resection 2008; presented to ER for fatigue, malaise, no fever/chills. cough+, no sputum/sob/ cp. Pt being treated for sepsis sec to Strep PNA -Severe Sepsis with Shock -Left lower lobe Strep Pneumonia - Copious secretions and mucus plugging s/p bronchoscopy -Strep Bacteremia, resolved -Acute hypoxic resp failure, intubated 09/26, ext 09/30, reintubated 09/30 -Acute LV systolic dysfunction likely sec to sepsis -New onset Afib, NSR now h/o throat ca s/p neck dissection 2008 Plan: Neuro- On propfol. Sedation vacation this am, tolerated well. Delirium prec. Asp prec. CVS- severe sepsis, shock+. Needing intermittent low dose Levophed. -Afib, rate controlled; on Lovenox -TTE with mod LV systolic dysfunction ef 35-40%; unclear if new or old. will need repeat TTE for f/u when stable. Hold off BB given bradycardia Resp- Reintubated for worsening resp distress post extubation, has thick secretions, bronch repeated today, thick secretions were suctioned. -CXR in am; cont IV abx. -Pulm toilet. Bronchodilators PRN. ID- Afebrile, Blood cx x2 with strep; repeat blood cx negative. Strep urine Ag+ . Sputum with strept pneum+. TTE no vegetations -Cont Ceftriaxone IV (day#7). completed azithromycin. GI- OGT- tube feeds, GI proph Renal- ISABEL resolved, Cr normal. cont NS 50cc/hr. No electrolyte abnormalities. Cont Rowan. Heme- hg stable. plt stable. DVT proph with heparin/scd. Endo- fingerstick q6h. lispro q6h, BG<200 Musculsk- pressure ulcer prophylaxis. Wounds- none Nutrition- Tube feeds DVT prophylaxis: heparin sq/scd GI prophylaxis: h2b Central Line: yes, right fem 09/26, will obtian PICC line on Thursday Arterial Line: yes, right fem 09/26, will d/c when off pressors Rowan Cathetor: yes Disposition: ICU Code Status: full code Critical Care Time: 30 minutes
[2018-10-02] MEDS: NS 0.9% 1000 ML* 1,000 ML IV SCH (14:48)
[2018-10-02] MEDS: Norepinephrine VIAL* 4 MG in NS 0.9% 250 ML* 246 ML IV SCH (20:36)
[2018-10-03] MEDS: Chlorhexidine MOUTHWASH 0.12%* 15 ML UDC TOPICAL SCH ×6 (04:05→23:57)
[2018-10-03] MEDS: Insulin LISPRO* 1 UNITS UNIT SUBCUT SCH ×5 (06:00→23:57)
[2018-10-03 06:02] LABS: Hematocrit 31 % (42-52); Mean Corpuscular HGB Conc 32 g/dl (31-36); Mean Corpuscular Hemoglobin 29 pg (27-31); Mean Corpuscular Volume 89 fL (80-94); Mean Platelet Volume 7.9 fL (7.4-10.4); Platelet Count 303 10^3/ul (150-450); Red Blood Count 3.48 10^6/ul (4.00-5.40); Red Cell Distribution Width 15 % (10.5-15); White Blood Count 13.4 10^3/ul (3.5-10.8)
[2018-10-03] MEDS: Levothyroxine TAB* 75 MCG TAB PO SCH (06:03)
[2018-10-03 06:24] LABS: BUN/Creatinine Ratio 28.4 (8-20); Calcium 7.9 mg/dL (8.6-10.3); EGFR Non-African American 94.8 (>60); Magnesium 1.8 mg/dL (1.9-2.7); Potassium 3.6 mmol/L (3.5-5.0)
[2018-10-03] MEDS: Norepinephrine VIAL* 4 MG in NS 0.9% 250 ML* 246 ML IV SCH (07:05)
[2018-10-03] MEDS: Famotidine TAB* 20 MG PO SCH (09:22)
[2018-10-03] MEDS: Enoxaparin(*) 150 MG/ML 1 ML SYRINGE SUBCUT SCH (09:22)
[2018-10-03] MEDS: cefTRIAXone(*) 1 GM in NS 0.9% 50 ML* 50 ML IVPB SCH (09:29)
--- NOTE | 2018-10-03 11:03 | PN ---
Date of Service: 10/03/18 - [facility] note Critical Care Services: Pt seen and examined at bedside. Pt more alert after holding Propofol, able to follow commands. O/N events: Had episode of coughing spell that improved with suctioning Had blood tinged mucus Tolerated tube feeds Vital Signs: Temp Pulse Resp BP SpO2 FiO2 99.5 F 64 15 129/64 96 30 10/03/18 07:01 10/03/18 07:12 10/03/18 07:12 10/03/18 07:00 10/03/18 07:12 10/03 07:12 Physical Exam: Gen: Pt is alert, awake HEENT: PERRLA, no JVD Lungs: Clear to asucultation, decreased at bases L>R Cardiac: S1, S2+, regular Abdomen: Soft, BS+ Extremities: No edema, normal ROM Neuro: No focal deficits, able to follow commands Fluid Balance (Past 24 Hours): I=143 O= 240 Net-97 Intake & Output 10/01/18 10/02/18 10/03/18 10/04/18 06:59 06:59 06:59 06:59 Intake Total 3189.3 2650.8 2124 143 Output Total 2165 2595 2100 240 Balance 1024.3 55.8 24 -97 Weight 171 lb 4.787 oz 173 lb 11.588 oz 172 lb 6.424 oz Intake: IV Fluids 2171 1842 1386 ABX - CEFTRIAXONE 55 NS (0.45%) 2171 1763 630 NS (0.9%) 756 NSS 24 IVPB 320 122 ABX - CEFTRIAXONE 60 NS (0.45%) 122 azithromycin 260 Medicated IV 698.3 808.8 320 CC - Norepinephrine/ 158 121.8 31 Levophed CC - Propofol/Diprivan 273 472 289 Heparin 267.3 215 Tube Feeding 176 83 Tube Feeding Flush Amount 120 60 Output: Urine 75 Rowan 2090 2420 2100 240 Suctioning 175 Labs: Laboratory Results - last 24 hr 10/02/18 10/02/18 10/02/18 06:00 12:12 18:25 WBC RBC Hgb Hct MCV MCH MCHC RDW Plt Count MPV Patient Temperature ABG pH ABG pH (Temp Correct) ABG pCO2 ABG pCO2 (Temp Corrct ABG pO2 ABG pO2 (Temp Correct ABG HCO3 ABG O2 Saturation ABG Base Excess Respiration Rate Ventilator Type Vent Mode FiO2 Inspiratory Time PEEP Pressure Support Pressure Control EPAP IPAP BiPAP Sodium 140 Potassium 3.8 Chloride 107 Carbon Dioxide 28 Anion Gap 5 BUN 24 Creatinine 0.76 Est GFR ( Amer) 123.4 Est GFR (Non-Af Amer) 102.0 BUN/Creatinine Ratio 31.6 H Glucose 99 POC Glucose (mg/dL) 121 H 107 H Calcium 8.2 L Phosphorus 2.9 Magnesium 1.6 L 10/02/18 10/03/18 10/03/18 23:55 05:40 05:40 WBC 13.4 H RBC 3.48 L Hgb 10.0 L Hct 31 L MCV 89 MCH 29 MCHC 32 RDW 15 Plt Count 303 MPV 7.9 Patient Temperature ABG pH ABG pH (Temp Correct) ABG pCO2 ABG pCO2 (Temp Corrct ABG pO2 ABG pO2 (Temp Correct ABG HCO3 ABG O2 Saturation ABG Base Excess Respiration Rate Ventilator Type Vent Mode FiO2 Inspiratory Time PEEP Pressure Support Pressure Control EPAP IPAP BiPAP Sodium 141 Potassium 3.6 Chloride 109 Carbon Dioxide 29 Anion Gap 3 BUN 23 Creatinine 0.81 Est GFR ( Amer) 114.7 Est GFR (Non-Af Amer) 94.8 BUN/Creatinine Ratio 28.4 H Glucose 115 H POC Glucose (mg/dL) 97 Calcium 7.9 L Phosphorus Magnesium 1.8 L 10/03/18 10:10 WBC RBC Hgb Hct MCV MCH MCHC RDW Plt Count MPV Patient Temperature Not Reportable ABG pH 7.45 ABG pH (Temp Correct) Not Reportable ABG pCO2 38 ABG pCO2 (Temp Corrct Not Reportable ABG pO2 65 L ABG pO2 (Temp Correct Not Reportable ABG HCO3 26.6 ABG O2 Saturation 95.1 ABG Base Excess 2.3 H Respiration Rate Not Reportable Ventilator Type Not Reportable Vent Mode Not Reportable FiO2 30 Inspiratory Time Not Reportable PEEP Not Reportable Pressure Support Not Reportable Pressure Control Not Reportable EPAP Not Reportable IPAP Not Reportable BiPAP Not Reportable Sodium Potassium Chloride Carbon Dioxide Anion Gap BUN Creatinine Est GFR ( Amer) Est GFR (Non-Af Amer) BUN/Creatinine Ratio Glucose POC Glucose (mg/dL) Calcium Phosphorus Magnesium Studies: CXR 10/03 was personally reviewed- Lt lower lobe consolidation with no interval change Nutrition: Was on tube feeds last night, held this am for extubation. Will start feeds after bedside swallow eval Impression: 68y M w/pmhx of HTN, Hypothyroidism, throat cancer s/p resection 2008; presented to ER for fatigue, malaise, no fever/chills. cough+, no sputum/sob/ cp. Pt being treated for sepsis sec to Strep PNA. He was extubated on 09/30 and was reintubated for worsening resp failure -Severe Sepsis with Shock, resolved -Left lower lobe Strep Pneumonia - Copious secretions and mucus plugging s/p bronchoscopy at bedside X3 -Strep Bacteremia, resolved -Acute hypoxic resp failure, intubated 09/26, ext 09/30, reintubated 09/30, extubated 10/03 -Acute LV systolic dysfunction likely sec to sepsis -New onset Afib, NSR now h/o throat ca s/p neck dissection 2008 Plan: Neuro- On propfol. Held this am, was alert and following commands. No signs of delirium post extubation CVS- severe sepsis, shock+ resolved. Off Levophed since 10/02. -New onset Afib, in normal sinus rhythm now with sinus bradycardia. On Lovenox. -TTE with mod LV systolic dysfunction ef 35-40%; unclear if new or old- could be from sepsis. will need repeat TTE for f/u when stable. Hold off BB given bradycardia Resp- Reintubated for worsening resp distress post extubation, was able to extubate this am. Has weak cough and has thick secretions, will do metanebs and chest PT. CXR showed no interval change; cont IV abx. Pulm toilet. Bronchodilators PRN. ID- Afebrile, Blood cx x2 with strep; repeat blood cx negative. Strep urine Ag+ . Sputum with strept pneum+. TTE no vegetations -Cont Ceftriaxone IV (day#8). completed azithromycin. GI- Bedside swallow eval and start po if tolerates, GI proph Renal- ISABEL resolved, Cr normal. cont NS 50cc/hr until able to eat. No electrolyte abnormalities. D/c Rowan today. Heme- hg stable. plt stable. DVT proph with heparin/scd. Endo- fingerstick q6h. lispro q6h, BG-115 Musculsk- pressure ulcer prophylaxis. OOB to chair today Wounds- none Nutrition- To assess ability to take po feeds DVT prophylaxis: heparin sq/scd GI prophylaxis: h2b Central Line: yes, right fem 09/26, will d/c today Arterial Line: yes, right fem 09/26, will d/c Rowan Cathetor: yes, will d/c today Disposition: ICU Code Status: full code Critical Care Time: 30 minutes
[2018-10-03] MEDS: NS 0.9% 1000 ML* 1,000 ML IV SCH (11:14)
[2018-10-04] MEDS ORDERED: Melatonin 3 MG TAB PO PRN (01:19)
[2018-10-04] MEDS ORDERED: Diltiazem IV* 5 MG/ML 5 ML VIAL (for loading dose/IV Push) (25 MG) IV SLOW PU ONE (02:23)
[2018-10-04] MEDS: Norepinephrine VIAL* 4 MG in NS 0.9% 250 ML* 246 ML IV SCH (02:46)
[2018-10-04] MEDS: Chlorhexidine MOUTHWASH 0.12%* 15 ML UDC TOPICAL SCH ×2 (06:19→09:04)
[2018-10-04] MEDS: Insulin LISPRO* 1 UNITS UNIT SUBCUT SCH ×3 (06:19→18:16)
[2018-10-04] MEDS: Levothyroxine TAB* 75 MCG TAB PO SCH (06:22)
[2018-10-04 06:52] LABS: Hematocrit 34 % (42-52); Hemoglobin 11.2 g/dl (14.0-18.0); Mean Corpuscular HGB Conc 33 g/dl (31-36); Mean Corpuscular Hemoglobin 29 pg (27-31); Mean Corpuscular Volume 88 fL (80-94); Platelet Count 404 10^3/ul (150-450); Red Blood Count 3.89 10^6/ul (4.00-5.40); Red Cell Distribution Width 15 % (10.5-15); White Blood Count 15.5 10^3/ul (3.5-10.8)
[2018-10-04 07:13] LABS: Albumin 2.2 g/dL (3.2-5.2); Albumin/Globulin Ratio 0.6 (1-3); BUN/Creatinine Ratio 26.8 (8-20); Calcium 8.4 mg/dL (8.6-10.3); EGFR Non-African American 110.3 (>60); Globulin 3.5 g/dL (2-4); Magnesium 1.6 mg/dL (1.9-2.7); Potassium 3.7 mmol/L (3.5-5.0); Total Bilirubin 0.6 mg/dL (0.2-1.0); Total Protein 5.7 g/dL (6.4-8.9)
[2018-10-04 07:45] LABS: Immature Granulocytes 4 % (0-9); Lymphocytes % 5 %; Monocytes % 3 %; Myelocytes % 3 % (0-1); Neutrophil % 87 %
[2018-10-04 07:46] LABS: ABS Basophils 0.16 10^3/ul (0-0.2); ABS Neutrophils 14.1 10^3/ul (1.5-7.7)
[2018-10-04] MEDS: Famotidine TAB* 20 MG PO SCH (09:04)
[2018-10-04] MEDS: Enoxaparin(*) 150 MG/ML 1 ML SYRINGE SUBCUT SCH (09:04)
[2018-10-04] MEDS ORDERED: Potassium Chloride LIQUID* 20 MEQ PACKET PO ONE (09:51)
[2018-10-04] MEDS ORDERED: Magnesium Sulfate IV* 3 GM in NS 0.9% 100 ML* 100 ML IVPB ONE (10:30)
--- NOTE | 2018-10-04 10:42 | PN ---
Date of Service: 10/04/18 Critical Care Services: 68M with htn, hypothyroid presented for septic shock and respiratory failure 2/ 2 strep pneumo/h flu pneumonia. Patient now extubated. 10/04: DC tlc, dc a line, dc argueta today. DC ng tube if passes swallow eval. Vital Signs: Temp Pulse Resp BP SpO2 FiO2 99.3 F 101 17 134/89 98 50 10/04/18 06:30 10/04/18 07:30 10/04/18 07:30 10/04/18 06:00 10/04/18 07:30 10/04 07:30 Physical Exam: Gen - nad, chronically ill heent - ncat, eomi, perrl neck - no jvd, cv - s1/s2, no murmur lungs - +ronchi abd - soft, nt ext - no cce neuro - non-focal Fluid Balance (Past 24 Hours): I= O= Net Intake & Output 10/02/18 10/03/18 10/04/18 10/05/18 06:59 06:59 06:59 06:59 Intake Total 2650.8 2124 1402 Output Total 2595 2100 2545 Balance 55.8 24 -1143 Weight 78.8 kg 78.2 kg 76.3 kg Intake: IV Fluids 1842 1386 1198 ABX - CEFTRIAXONE 55 NS (0.45%) 1763 630 NS (0.9%) 756 578 NSS 24 620 IVPB 122 61 NS (0.45%) 122 NSS 61 Medicated IV 808.8 320 CC - Norepinephrine/ 121.8 31 Levophed CC - Propofol/Diprivan 472 289 Heparin 215 Tube Feeding 176 83 Tube Feeding Flush Amount 120 60 Output: Argueta 2420 2100 2545 Suctioning 175 Labs: Laboratory Results - last 24 hr 10/03/18 10/03/18 10/03/18 05:36 12:40 17:58 WBC RBC Hgb Hct MCV MCH MCHC RDW Plt Count MPV Neut % (Auto) Lymph % (Auto) Mercer % (Auto) Eos % (Auto) Baso % (Auto) Absolute Neuts (auto) Absolute Lymphs (auto) Absolute Monos (auto) Absolute Eos (auto) Absolute Basos (auto) Absolute Nucleated RBC Immature Gran % Neutrophils % Band Neutrophils % Lymphocytes % Monocytes % Basophils % Myelocytes % Nucleated RBC % Abs Neuts (Manual) Abs Lymphs (Manual) Abs Monocytes (Manual) Abs Basophils (Manual) Normal RBC Morphology Sodium Potassium Chloride Carbon Dioxide Anion Gap BUN Creatinine Est GFR ( Amer) Est GFR (Non-Af Amer) BUN/Creatinine Ratio Glucose POC Glucose (mg/dL) 129 H 122 H 109 H Calcium Magnesium Total Bilirubin AST ALT Alkaline Phosphatase Total Protein Albumin Globulin Albumin/Globulin Ratio 10/03/18 10/04/18 10/04/18 23:43 06:15 06:15 WBC 15.5 H RBC 3.89 L Hgb 11.2 L Hct 34 L MCV 88 MCH 29 MCHC 33 RDW 15 Plt Count 404 MPV 8.0 Neut % (Auto) Not Reportable Lymph % (Auto) Not Reportable Mercer % (Auto) Not Reportable Eos % (Auto) Not Reportable Baso % (Auto) Not Reportable Absolute Neuts (auto) Not Reportable Absolute Lymphs (auto) Not Reportable Absolute Monos (auto) Not Reportable Absolute Eos (auto) Not Reportable Absolute Basos (auto) Not Reportable Absolute Nucleated RBC Not Reportable Immature Gran % 4 Neutrophils % 87 Band Neutrophils % 1 Lymphocytes % 5 Monocytes % 3 Basophils % 1 Myelocytes % 3 H Nucleated RBC % Not Reportable Abs Neuts (Manual) 14.1 H Abs Lymphs (Manual) 0.78 L Abs Monocytes (Manual) 0.47 Abs Basophils (Manual) 0.16 Normal RBC Morphology Normal Sodium 142 Potassium 3.7 Chloride 107 Carbon Dioxide 28 Anion Gap 7 BUN 19 Creatinine 0.71 Est GFR ( Amer) 133.5 Est GFR (Non-Af Amer) 110.3 BUN/Creatinine Ratio 26.8 H Glucose 83 POC Glucose (mg/dL) 89 Calcium 8.4 L Magnesium 1.6 L Total Bilirubin 0.60 AST 39 ALT 42 Alkaline Phosphatase 197 H Total Protein 5.7 L Albumin 2.2 L Globulin 3.5 Albumin/Globulin Ratio 0.6 L 10/04/18 06:15 WBC RBC Hgb Hct MCV MCH MCHC RDW Plt Count MPV Neut % (Auto) Lymph % (Auto) Mercer % (Auto) Eos % (Auto) Baso % (Auto) Absolute Neuts (auto) Absolute Lymphs (auto) Absolute Monos (auto) Absolute Eos (auto) Absolute Basos (auto) Absolute Nucleated RBC Immature Gran % Neutrophils % Band Neutrophils % Lymphocytes % Monocytes % Basophils % Myelocytes % Nucleated RBC % Abs Neuts (Manual) Abs Lymphs (Manual) Abs Monocytes (Manual) Abs Basophils (Manual) Normal RBC Morphology Sodium Potassium Chloride Carbon Dioxide Anion Gap BUN Creatinine Est GFR ( Amer) Est GFR (Non-Af Amer) BUN/Creatinine Ratio Glucose POC Glucose (mg/dL) 89 Calcium Magnesium Total Bilirubin AST ALT Alkaline Phosphatase Total Protein Albumin Globulin Albumin/Globulin Ratio Studies: CXR 10/04 IMPRESSION: Density obscuring the bilateral lung bases worse on the right and the left could be due to pleural effusion and/or consolidation. Overall the degree of aeration has deteriorated since the most recent October 03, 2018 chest x-ray. Impression: 68M with htn, hypothyroid initially presented with septic shock and respiratory failure 2/2 strep pneumo/h flu pna. Plan: Neuro - good mental status CV - shock, afib, reduced ef - 2/2 sepsis - now resolved - restart home amlodipine - tte with reduced ef - afib 2/2 sepsis - now back in sinus - on lovenox for ac pulm - hypoxic respiratory failure - 2/2 pna - now on wall nasal cannula - wean o2 as tolerated id - sepstic shock, strep bacteremia - repeat blood cultures negative - complete 14 days of ceftriaxone gi - swallow eval - advance diet as tolerated renal - monitor bmp - replete lytes heme - monitor cbc endo - hypothyroid - c/w synthroid lines - dc a line, dc tlc, dc argueta today ppx - gi/dvt full code Critical Care Time: 60 mins
[2018-10-04] MEDS: cefTRIAXone(*) 1 GM in NS 0.9% 50 ML* 50 ML IVPB SCH (11:25)
[2018-10-04] MEDS ORDERED: Nystatin TOP POWDER* 15 GM BTL TOPICAL PRN (14:03)
[2018-10-04 22:05] LABS: Hematocrit 39 % (42-52); Hemoglobin 12.3 g/dl (14.0-18.0); Mean Corpuscular HGB Conc 32 g/dl (31-36); Mean Corpuscular Hemoglobin 28 pg (27-31); Mean Corpuscular Volume 89 fL (80-94); Mean Platelet Volume 7.5 fL (7.4-10.4); Platelet Count 485 10^3/ul (150-450); Red Blood Count 4.37 10^6/ul (4.00-5.40); Red Cell Distribution Width 15 % (10.5-15); White Blood Count 14.2 10^3/ul (3.5-10.8)
[2018-10-04 22:12] LABS: INR 1.14 (0.77-1.02)
[2018-10-04 22:23] LABS: Albumin 2.6 g/dL (3.2-5.2); Albumin/Globulin Ratio 0.7 (1-3); BUN/Creatinine Ratio 32.3 (8-20); Calcium 8.8 mg/dL (8.6-10.3); EGFR Non-African American 122.2 (>60); Globulin 3.8 g/dL (2-4); Total Bilirubin 0.5 mg/dL (0.2-1.0); Total Protein 6.4 g/dL (6.4-8.9)
[2018-10-05] MEDS: Insulin LISPRO* 1 UNITS UNIT SUBCUT SCH ×4 (00:28→17:57)
--- NOTE | 2018-10-05 05:43 | PN ---
Hospitalist Progress Note Date of Service: 10/04/18 clinicial assessment code called overhead pt was found on the floor got up to urinate then ? slip on the floor. pt was placed on hard collar vital including f /s were stable. pt subsequently went for head/neck ct which both came back neg no fx no bleed. stat ekg did not reveal any acute change. stat lab reviewed no acute change beyond his baseline ( this real estate underwriter went down with pt to ct for head/ neck ) general arousable follows commands heart s1 s2 lung decreased b/s with some ronchi equal chest wall expansion neuro arousable follows command able to raise his ue and le against gravity a/p 1 mechanical fall - workup so far has been neg 2 a fib pt does not have any arrthymia when he fell k and latrice wnl but no mg was done - continue current mgt - will add on mg to am lab 3 septic shock due to pna - stable continue current mgt total critical time 35 min
[2018-10-05] MEDS: Levothyroxine TAB* 75 MCG TAB PO SCH (05:54)
[2018-10-05 06:19] LABS: ABS Basophils 0.1 10^3/ul (0-0.2); ABS Eosinophils 0.1 10^3/ul (0-0.6); ABS Lymphocytes 0.8 10^3/ul (1.0-4.8); ABS Monocytes 1.1 10^3/ul (0-0.8); ABS Neutrophils 11.5 10^3/ul (1.5-7.7); ABS Nucleated RBC 0 10^3/ul; Eosinophil % 1.1 %; Hematocrit 37 % (42-52); Mean Corpuscular HGB Conc 32 g/dl (31-36); Mean Corpuscular Hemoglobin 29 pg (27-31); Mean Corpuscular Volume 89 fL (80-94); Mean Platelet Volume 7.7 fL (7.4-10.4); Nucleated Red Blood Cells % 0; Platelet Count 433 10^3/ul (150-450); Red Blood Count 4.16 10^6/ul (4.00-5.40); Red Cell Distribution Width 15 % (10.5-15); White Blood Count 13.7 10^3/ul (3.5-10.8)
[2018-10-05 07:42] LABS: Calcium 8.6 mg/dL (8.6-10.3); Magnesium 1.8 mg/dL (1.9-2.7); Potassium 3.8 mmol/L (3.5-5.0)
[2018-10-05 07:48] LABS: BUN/Creatinine Ratio 28.6 (8-20); EGFR Non-African American 126.6 (>60)
[2018-10-05] MEDS ORDERED: Potassium Chloride LIQUID* 20 MEQ PACKET PO ONE (09:00)
--- NOTE | 2018-10-05 09:07 | PN ---
Date of Service: 10/05/18 Critical Care Services: 68M with htn, hypothyroid presented for septic shock and respiratory failure 2/ 2 strep pneumo/h flu pneumonia. Patient now extubated. 10/04: DC tlc, dc a line, dc argueta today. DC ng tube if passes swallow eval. 10/05: fell overnight. CT head/c spine neg. failed swallow eval yesterday. plan for MBS on thu. Vital Signs: Temp Pulse Resp BP SpO2 FiO2 97.6 F 71 18 146/78 98 50 10/05/18 07:42 10/05/18 06:00 10/05/18 07:23 10/05/18 05:00 10/05/18 06:00 10/04 07:30 Physical Exam: Gen - nad, chronically ill heent - ncat, eomi, perrl neck - no jvd, cv - s1/s2, no murmur lungs - +ronchi abd - soft, nt ext - no cce neuro - non-focal Fluid Balance (Past 24 Hours): I= O= Net Intake & Output 10/03/18 10/04/18 10/05/18 10/06/18 06:59 06:59 06:59 06:59 Intake Total 2124 1402 1130 Output Total 2100 2545 1330 0 Balance 24 -1143 -200 0 Weight 78.2 kg 76.3 kg 76 kg Intake: IV Fluids 1386 1198 NS (0.45%) 630 NS (0.9%) 756 578 NSS 620 IVPB 122 61 NS (0.45%) 122 NSS 61 Medicated IV 320 CC - Norepinephrine/ 31 Levophed CC - Propofol/Diprivan 289 Oral 50 Tube Feeding 176 83 980 Tube Feeding Flush Amount 120 60 100 Output: Urine 575 0 Argueta 2100 2545 755 Labs: Laboratory Results - last 24 hr 10/03/18 10/03/18 10/04/18 05:36 12:40 12:33 WBC RBC Hgb Hct MCV MCH MCHC RDW Plt Count MPV Neut % (Auto) Lymph % (Auto) Tucker % (Auto) Eos % (Auto) Baso % (Auto) Absolute Neuts (auto) Absolute Lymphs (auto) Absolute Monos (auto) Absolute Eos (auto) Absolute Basos (auto) Absolute Nucleated RBC Nucleated RBC % INR (Anticoag Therapy) Sodium Potassium Chloride Carbon Dioxide Anion Gap BUN Creatinine Est GFR ( Amer) Est GFR (Non-Af Amer) BUN/Creatinine Ratio Glucose POC Glucose (mg/dL) 129 H 122 H 87 Calcium Magnesium Total Bilirubin AST ALT Alkaline Phosphatase Troponin I Total Protein Albumin Globulin Albumin/Globulin Ratio 10/04/18 10/04/18 10/04/18 18:00 20:58 21:57 WBC RBC Hgb Hct MCV MCH MCHC RDW Plt Count MPV Neut % (Auto) Lymph % (Auto) Tucker % (Auto) Eos % (Auto) Baso % (Auto) Absolute Neuts (auto) Absolute Lymphs (auto) Absolute Monos (auto) Absolute Eos (auto) Absolute Basos (auto) Absolute Nucleated RBC Nucleated RBC % INR (Anticoag Therapy) Sodium 139 Potassium 4.0 Chloride 106 Carbon Dioxide 28 Anion Gap 5 BUN 21 Creatinine 0.65 L Est GFR ( Amer) 147.8 Est GFR (Non-Af Amer) 122.2 BUN/Creatinine Ratio 32.3 H Glucose 141 H POC Glucose (mg/dL) 144 H 140 H Calcium 8.8 Magnesium Total Bilirubin 0.50 AST 37 ALT 41 Alkaline Phosphatase 194 H Troponin I 0.03 Total Protein 6.4 Albumin 2.6 L Globulin 3.8 Albumin/Globulin Ratio 0.7 L 10/04/18 10/04/18 10/05/18 21:57 21:57 00:27 WBC 14.2 H RBC 4.37 Hgb 12.3 L Hct 39 L MCV 89 MCH 28 MCHC 32 RDW 15 Plt Count 485 H D MPV 7.5 Neut % (Auto) Lymph % (Auto) Tucker % (Auto) Eos % (Auto) Baso % (Auto) Absolute Neuts (auto) Absolute Lymphs (auto) Absolute Monos (auto) Absolute Eos (auto) Absolute Basos (auto) Absolute Nucleated RBC Nucleated RBC % INR (Anticoag Therapy) 1.14 H Sodium Potassium Chloride Carbon Dioxide Anion Gap BUN Creatinine Est GFR ( Amer) Est GFR (Non-Af Amer) BUN/Creatinine Ratio Glucose POC Glucose (mg/dL) 140 H Calcium Magnesium Total Bilirubin AST ALT Alkaline Phosphatase Troponin I Total Protein Albumin Globulin Albumin/Globulin Ratio 10/05/18 10/05/18 10/05/18 05:42 05:42 06:40 WBC 13.7 H RBC 4.16 Hgb 12.0 L Hct 37 L MCV 89 MCH 29 MCHC 32 RDW 15 Plt Count 433 MPV 7.7 Neut % (Auto) 84.2 Lymph % (Auto) 6.0 Tucker % (Auto) 8.1 Eos % (Auto) 1.1 Baso % (Auto) 0.6 Absolute Neuts (auto) 11.5 H Absolute Lymphs (auto) 0.8 L Absolute Monos (auto) 1.1 H Absolute Eos (auto) 0.1 Absolute Basos (auto) 0.1 Absolute Nucleated RBC 0 Nucleated RBC % 0 INR (Anticoag Therapy) Sodium 140 Potassium 3.8 Chloride 106 Carbon Dioxide 31 Anion Gap 3 BUN 18 Creatinine 0.63 L Est GFR ( Amer) 153.2 Est GFR (Non-Af Amer) 126.6 BUN/Creatinine Ratio 28.6 H Glucose 152 H POC Glucose (mg/dL) 153 H Calcium 8.6 Magnesium 1.8 L Total Bilirubin AST ALT Alkaline Phosphatase Troponin I Total Protein Albumin Globulin Albumin/Globulin Ratio Studies: CXR 10/04 IMPRESSION: Density obscuring the bilateral lung bases worse on the right and the left could be due to pleural effusion and/or consolidation. Overall the degree of aeration has deteriorated since the most recent October 03, 2018 chest x-ray. CT head 10/04 IMPRESSION: No acute intracranial pathology. CT c spine 10/04 IMPRESSION: 1. No acute cervical spine fracture. 2. Other chronic findings, as above. Impression: 68M with htn, hypothyroid initially presented with septic shock and respiratory failure 2/2 strep pneumo/h flu pna. Plan: Neuro - good mental status CV - shock, afib, reduced ef - 2/2 sepsis - now resolved - restart home amlodipine - tte with reduced ef - afib has resolved - will stop therapeutic lovenox given fall risk and change to prophylactic dose pulm - hypoxic respiratory failure - 2/2 pna - now on wall nasal cannula - wean o2 as tolerated id - sepstic shock, strep bacteremia - repeat blood cultures negative - complete 14 days of ceftriaxone gi - failed swallow eval - c/w tube feeds - plan for MBS tomorrow with speech pathology renal - monitor bmp - replete lytes heme - monitor cbc endo - hypothyroid - c/w synthroid lines - piv ppx - gi/dvt full code Stable for transfer to telemetry Critical Care Time: 45 mins
[2018-10-05] MEDS: Enoxaparin(*) 40 MG/0.4 ML SYR SUBCUT SCH (09:43)
[2018-10-05] MEDS: cefTRIAXone(*) 1 GM in NS 0.9% 50 ML* 50 ML IVPB SCH (09:43)
[2018-10-05] MEDS: Famotidine TAB* 20 MG PO SCH (09:44)
[2018-10-05] MEDS ORDERED: Senna TAB PO PRN (10:45)
[2018-10-05] MEDS ORDERED: Polyethylene Glycol 3350* 17 GM PACKET PO PRN (10:45)
[2018-10-05] MEDS ORDERED: Docusate LIQ* 100 MG/10 ML UDC PO PRN (10:45)
[2018-10-05] MEDS: Enoxaparin(*) 150 MG/ML 1 ML SYRINGE SUBCUT SCH (11:22)
[2018-10-06] MEDS: Insulin LISPRO* 1 UNITS UNIT SUBCUT SCH ×4 (01:13→17:20)
[2018-10-06 05:39] LABS: ABS Basophils 0.1 10^3/ul (0-0.2); ABS Eosinophils 0.2 10^3/ul (0-0.6); ABS Lymphocytes 0.9 10^3/ul (1.0-4.8); ABS Neutrophils 9.9 10^3/ul (1.5-7.7); ABS Nucleated RBC 0 10^3/ul; Eosinophil % 1.4 %; Hematocrit 35 % (42-52); Hemoglobin 11.7 g/dl (14.0-18.0); Lymphocyte % 7.4 %; Mean Corpuscular HGB Conc 33 g/dl (31-36); Mean Corpuscular Hemoglobin 29 pg (27-31); Mean Corpuscular Volume 88 fL (80-94); Mean Platelet Volume 7.4 fL (7.4-10.4); Nucleated Red Blood Cells % 0; Platelet Count 467 10^3/ul (150-450); Red Blood Count 3.98 10^6/ul (4.00-5.40); Red Cell Distribution Width 15 % (10.5-15)
[2018-10-06 05:56] LABS: BUN/Creatinine Ratio 27.3 (8-20); Calcium 8.6 mg/dL (8.6-10.3); EGFR Non-African American 148.1 (>60); Magnesium 1.6 mg/dL (1.9-2.7); Potassium 3.9 mmol/L (3.5-5.0)
[2018-10-06] MEDS: Levothyroxine TAB* 75 MCG TAB PO SCH (06:31)
[2018-10-06] MEDS ORDERED: Magnesium Sulfate 2 GM IV* 2 GM/50 ML BAG IVPB ONE (07:58)
[2018-10-06] MEDS ORDERED: Metoprolol Tartrate IV* 1 MG/ML 5 ML VIAL IV PRN (08:00)
[2018-10-06] MEDS: Enoxaparin(*) 40 MG/0.4 ML SYR SUBCUT SCH (08:25)
[2018-10-06] MEDS: Potassium Chloride LIQUID* 20 MEQ PACKET PO SCH (08:26)
[2018-10-06] MEDS: Metoprolol Tartrate TAB* 25 MG PO SCH ×2 (08:26→22:15)
[2018-10-06] MEDS: Famotidine TAB* 20 MG PO SCH (08:26)
--- NOTE | 2018-10-06 08:27 | PN ---
Subjective Date of Service: 10/06/18 Interval History: Some cough with dark sputum, no SOB. No pain. No new c/o. Objective Active Medications: Acetaminophen (Tylenol Tab*) 650 mg PO Q4H PRN PRN Reason: FEVER/PAIN Last Admin: 09/29/18 04:11 Dose: 650 mg Albuterol (Ventolin 2.5 Mg/3 Ml Neb.Patricia*) 2.5 mg INH Q4H PRN PRN Reason: SOB/WHEEZING Last Admin: 09/30/18 23:25 Dose: 2.5 mg Albuterol/Ipratropium (Duoneb (Albuterol 2.5 Mg/Ipratropium 0.5 Mg)) 1 neb INH [id number] AWAKE PRN PRN Reason: sob/wheexing Last Admin: 09/30/18 15:26 Dose: 1 neb Dextrose (D50w Syringe 50 Ml*) 12.5 gm IV PUSH .FOR FS < 60 - SS PRN PRN Reason: FS < 60 Docusate Sodium (Colace Liq*) 100 mg PO BID PRN PRN Reason: CONSTIPATION Enoxaparin Sodium (Lovenox(*)) 40 mg SUBCUT DAILY [facility] Last Admin: 10/05/18 09:43 Dose: 40 mg Famotidine (Pepcid Tab*) 20 mg PO DAILY [facility] Last Admin: 10/05/18 09:44 Dose: 20 mg Ceftriaxone Sodium 1 gm/ (Sodium Chloride) 50 mls @ 200 mls/hr IVPB Q24H [facility] Last Admin: 10/05/18 09:43 Dose: 200 mls/hr Magnesium Sulfate (Magnesium Sulfate 2 Gm Iv*) 2 gm in 50 mls @ 50 mls/hr IVPB ONCE ONE Stop: 10/06/18 08:57 Insulin Human Lispro (Humalog*) 0 units SUBCUT FS Q6 ICU [facility]; Protocol Last Admin: 10/06/18 06:39 Dose: Not Given Levothyroxine Sodium (Synthroid Tab*) 75 mcg PO 0600 [facility] Last Admin: 10/06/18 06:31 Dose: 75 mcg Metoprolol Tartrate (Lopressor Tab*) 25 mg PO BID [facility] Metoprolol Tartrate (Lopressor Iv*) 5 mg IV Q3H PRN PRN Reason: BLOOD PRESSURE Nystatin (Nystatin Top Powder*) 1 applic TOPICAL BID PRN PRN Reason: WOUND CARE Ondansetron HCl (Zofran Inj*) 4 mg IV Q6H PRN PRN Reason: NAUSEA Polyethylene Glycol/Electrolytes (Miralax*) 17 gm PO DAILY PRN PRN Reason: CONSTIPATION Potassium Chloride (Klor-Con Liquid*) 20 meq PO DAILY [facility] Senna (Senokot Tab*) 1 tab PO BEDTIME PRN PRN Reason: CONSTIPATION Vital Signs - 8 hr 10/06/18 10/06/18 03:19 07:36 Temperature 98.0 F 98.5 F Pulse Rate 74 147 Respiratory 16 18 Rate Blood Pressure 148/64 130/78 (mmHg) O2 Sat by Pulse 93 95 Oximetry Oxygen Devices in Use Now: High Flow Heated Nasal Cannula Appearance: Alert, partly up in bed. Neutral affect, looks comfortable. No cough during my visit. Eyes: No Scleral Icterus Neck: NL Appearance and Movements; NL JVP, No Thyroid Enlargement, Masses Respiratory: Symmetrical Chest Expansion and Respiratory Effort, - - Dull both bases Extremities: No Edema, No Clubbing, Cyanosis, - Skin: No Rash or Ulcers, No Nodules or Sclerosis, - Neurological: Alert and Oriented x 3, NL Sensation Result Diagrams: 10/06/18 05:31 10/06/18 05:31 Microbiology and Other Data: Microbiology 09/29/18 13:06 Aerobic Blood Culture - Final Blood Venous No Growth Day 5 Anaerobic Blood Culture - Final No Growth Day 5 09/29/18 12:55 Aerobic Blood Culture - Final Blood Venous No Growth Day 5 Anaerobic Blood Culture - Final No Growth Day 5 09/26/18 14:35 Blood Culture - Final Blood Venous Streptococcus Pneumoniae 09/28/18 12:53 Throat Culture - Final Throat YEAST Normal Tram 09/27/18 08:08 Gram Stain - Final Sputum Trach Sputum Culture - Final Normal Tram 09/26/18 14:35 Aerobic Blood Culture - Final Blood Venous Streptococcus Pneumoniae 09/26/18 15:28 Throat Culture - Final Throat Streptococcus Pneumoniae Haemophilus Influenzae 09/26/18 16:28 Gram Stain - Final Sputum Sputum Culture - Final Streptococcus Pneumoniae Normal Tram 09/26/18 16:55 Nasal Screen MRSA (PCR) - Final Nasal Mrsa Not Detected 09/26/18 16:28 Legionella Urinary Antigen - Final Urine Negative Legionella Antigen Streptococcus pneumoniae Ag Screen - Final Positive S. Pneumo Antigen Assess/Plan/Problems-Billing Assessment: - Patient Problems (1) Sepsis Current Visit: Yes Status: Acute Comment: Shock resolved. S. pneumoniae bacteremia, BL lung infiltrates. Dr. Saul to evaluate for possible horacentesis. Continue ceftriaxone. (2) Swallowing dysfunction Current Visit: Yes Status: Acute Comment: Video swallow eval pending. Continue TF. (3) Cardiomyopathy Current Visit: Yes Status: Acute Code(s): I42.9 - CARDIOMYOPATHY, UNSPECIFIED SNOMED Code(s): 91312869 Comment: BB started 10/06. Will need outpt fup. (4) Atrial fibrillation Current Visit: Yes Status: Acute Code(s): I48.91 - UNSPECIFIED ATRIAL FIBRILLATION SNOMED Code(s): 40876873 Comment: Scheduled metoprolol, prn IV metoprol started 10/06. Candidate for AC after acute measures completed. Mag and K+ replenishment. (5) Tobacco abuse Current Visit: Yes Status: Acute Code(s): Z72.0 - TOBACCO USE SNOMED Code( s): 617838936 Comment: Pt advised to quit smoking and avoid second hand smoke.
[2018-10-06] MEDS ORDERED: Potassium Chlor TAB* 10 MEQ TAB.ER PO SCH (09:00)
[2018-10-06] MEDS ORDERED: amLODIPine TAB* 5 MG PO SCH (09:00)
[2018-10-06] MEDS: cefTRIAXone(*) 1 GM in NS 0.9% 50 ML* 50 ML IVPB SCH (10:34)
[2018-10-06] MEDS ORDERED: Enoxaparin(*) 40 MG/0.4 ML SYR SUBCUT ONE (16:30)
[2018-10-07] MEDS: Insulin LISPRO* 1 UNITS UNIT SUBCUT SCH ×4 (00:32→18:34)
[2018-10-07] MEDS: Levothyroxine TAB* 75 MCG TAB PO SCH (05:56)
[2018-10-07] MEDS: Metoprolol Tartrate TAB* 25 MG PO SCH ×2 (09:03→20:33)
[2018-10-07] MEDS: Famotidine TAB* 20 MG PO SCH (09:03)
[2018-10-07] MEDS: Potassium Chloride LIQUID* 20 MEQ PACKET PO SCH (09:03)
--- NOTE | 2018-10-07 09:52 | PN ---
Progress Note - Progress Note Date of Service: 10/07/18 - Pulm f/u note Note: Pt seen and examined at bedside. Pt is drowsy however responds appropriately to questions. Continues to have cough with thick phleghm. Still requiring high FiO2. Active Medications Generic Name Dose Route Start Last Admin Trade Name Freq PRN Reason Stop Dose Admin Acetaminophen 650 mg 09/26/18 15:08 09/29/18 04:11 Tylenol Tab* PO 650 mg Q4H PRN Administration FEVER/PAIN Albuterol 2.5 mg 09/26/18 16:49 09/30/18 23:25 Ventolin 2.5 Mg/3 Ml Neb.Patricia* INH 2.5 mg Q4H PRN Administration SOB/WHEEZING Albuterol/Ipratropium 1 neb 09/26/18 15:08 09/30/18 15:26 Duoneb (Albuterol 2.5 Mg/Ipratropium 0.5 Mg) INH 1 neb [id number] AWAKE PRN Administration sob/wheexing Dextrose 12.5 gm 09/27/18 20:42 D50w Syringe 50 Ml* IV PUSH .FOR FS < 60 - SS PRN FS < 60 Docusate Sodium 100 mg 10/05/18 10:45 Colace Liq* PO BID PRN CONSTIPATION Famotidine 20 mg 10/01/18 09:00 10/07/18 09:03 Pepcid Tab* PO 20 mg DAILY [facility] Administration Ceftriaxone Sodium 1 gm/ 50 mls @ 200 mls/hr 09/27/18 10:00 10/06/18 10:34 Sodium Chloride IVPB 200 mls/hr Q24H [facility] Administration Insulin Human Lispro 0 units 09/28/18 00:00 10/07/18 05:56 Humalog* SUBCUT Not Given FS Q6 ICU [facility] Protocol Levothyroxine Sodium 75 mcg 09/27/18 06:00 10/07/18 05:56 Synthroid Tab* PO 75 mcg 0600 [facility] Administration Metoprolol Tartrate 25 mg 10/06/18 09:00 10/07/18 09:03 Lopressor Tab* PO 25 mg BID [facility] Administration Metoprolol Tartrate 5 mg 10/06/18 08:00 Lopressor Iv* IV Q3H PRN BLOOD PRESSURE Nystatin 1 applic 10/04/18 14:03 Nystatin Top Powder* TOPICAL BID PRN WOUND CARE Ondansetron HCl 4 mg 09/26/18 16:51 Zofran Inj* IV Q6H PRN NAUSEA Polyethylene Glycol/Electrolytes 17 gm 10/05/18 10:45 Miralax* PO DAILY PRN CONSTIPATION Potassium Chloride 20 meq 10/06/18 09:00 10/07/18 09:03 Klor-Con Liquid* PO 20 meq DAILY [facility] Administration Senna 1 tab 10/05/18 10:45 Senokot Tab* PO BEDTIME PRN CONSTIPATION Vital Signs Temp Pulse Resp BP Pulse Ox 98.7 F 66 16 129/57 90 10/07/18 07:32 10/07/18 07:32 10/07/18 07:32 10/07/18 07:32 10/07/18 07:32 O/E: Pt in NAD HEENT: PERRLA, No JVD, NGT+ Lungs: Dimnished air entry at bases, rhonchi + CVS: S1, S2+, regular Abd: Soft, BS+ Ext: Normal ROM Skin: No rash Neuro: Alert, awake, no focal deficits Laboratory Results - last 24 hr 10/06/18 10/06/18 10/07/18 11:57 17:18 00:32 POC Glucose (mg/dL) 165 H 125 H 125 H 10/07/18 05:54 POC Glucose (mg/dL) 131 H I/R: 68 y o m with h/o HTN, throat cancer s/p resection, hypothyroidism. Pt presented for evaluation of malaise, SOB, cough and was dx with Strep PNA with severe sepsis and septic shock. Pt with acute hypoxic resp failure requiring intubation, was extubated and required reintubation due to thick mucus plugs. Pt had required bronchoscopyx3 for clearance of mucus Pt was extubated 10/03, FiO2 titrated down and was transferred to medical floor. Pt with evidence of b/l pleural effusions, moderate on right side Pt remains afebrile, WBC count trending down He was noted to have evidence of aspiration on videolaryngoscopy He is currently receiving nutrition through NGT Given concern with persistent pl efffusion and hypoxia, I was asked to reconsult on patient by Dr Andres Reviewed imaging studies Discussed benefit from thoracentesis with pt Associated risks including risk of pneumothorax was discussed Pt agreeable to procedure Will send fluid for appropriate testing He was noted to have new onset A.fib during hospitalization, was initiated on Lovenox Lovenox is being held for the procedure c/w O2 supplementation Pt on Ceftriaxone Further recommendations pending thoracentesis
[2018-10-07] MEDS: cefTRIAXone(*) 1 GM in NS 0.9% 50 ML* 50 ML IVPB SCH (09:59)
[2018-10-07] MEDS ORDERED: Lidocaine 1%* 5 ML VIAL INJ ONE (13:00)
[2018-10-07 13:39] LABS: Body Fluid Source Pleural Fluid
--- NOTE | 2018-10-07 15:17 | PN ---
Subjective Date of Service: 10/07/18 Interval History: Denies SOB. Occ cough. No pain. Objective Active Medications: Acetaminophen (Tylenol Tab*) 650 mg PO Q4H PRN PRN Reason: FEVER/PAIN Last Admin: 09/29/18 04:11 Dose: 650 mg Albuterol (Ventolin 2.5 Mg/3 Ml Neb.Patricia*) 2.5 mg INH Q4H PRN PRN Reason: SOB/WHEEZING Last Admin: 09/30/18 23:25 Dose: 2.5 mg Albuterol/Ipratropium (Duoneb (Albuterol 2.5 Mg/Ipratropium 0.5 Mg)) 1 neb INH [id number] AWAKE PRN PRN Reason: sob/wheexing Last Admin: 09/30/18 15:26 Dose: 1 neb Dextrose (D50w Syringe 50 Ml*) 12.5 gm IV PUSH .FOR FS < 60 - SS PRN PRN Reason: FS < 60 Docusate Sodium (Colace Liq*) 100 mg PO BID PRN PRN Reason: CONSTIPATION Famotidine (Pepcid Tab*) 20 mg PO DAILY [facility] Last Admin: 10/07/18 09:03 Dose: 20 mg Ceftriaxone Sodium 1 gm/ (Sodium Chloride) 50 mls @ 200 mls/hr IVPB Q24H [facility] Last Admin: 10/07/18 09:59 Dose: 200 mls/hr Insulin Human Lispro (Humalog*) 0 units SUBCUT FS Q6 ICU [facility]; Protocol Last Admin: 10/07/18 13:44 Dose: Not Given Levothyroxine Sodium (Synthroid Tab*) 75 mcg PO 0600 [facility] Last Admin: 10/07/18 05:56 Dose: 75 mcg Metoprolol Tartrate (Lopressor Tab*) 25 mg PO BID [facility] Last Admin: 10/07/18 09:03 Dose: 25 mg Metoprolol Tartrate (Lopressor Iv*) 5 mg IV Q3H PRN PRN Reason: BLOOD PRESSURE Nystatin (Nystatin Top Powder*) 1 applic TOPICAL BID PRN PRN Reason: WOUND CARE Ondansetron HCl (Zofran Inj*) 4 mg IV Q6H PRN PRN Reason: NAUSEA Polyethylene Glycol/Electrolytes (Miralax*) 17 gm PO DAILY PRN PRN Reason: CONSTIPATION Potassium Chloride (Klor-Con Liquid*) 20 meq PO DAILY [facility] Last Admin: 10/07/18 09:03 Dose: 20 meq Senna (Senokot Tab*) 1 tab PO BEDTIME PRN PRN Reason: CONSTIPATION Vital Signs - 8 hr 10/07/18 10/07/18 10/07/18 07:32 08:00 11:42 Temperature 98.7 F 98.6 F Pulse Rate 66 55 Respiratory 16 18 26 Rate Blood Pressure 129/57 134/66 (mmHg) O2 Sat by Pulse 90 90 97 Oximetry 10/07/18 14:23 Temperature Pulse Rate 55 Respiratory 20 Rate Blood Pressure (mmHg) O2 Sat by Pulse 92 Oximetry Oxygen Devices in Use Now: Nasal Cannula Appearance: Alert, sitting up in bed. In good spirits. Looks comfortable. Eyes: No Scleral Icterus Respiratory: Symmetrical Chest Expansion and Respiratory Effort, Clear to Auscultation, Clear to Percussion Cardiovascular: NL Sounds; No Murmurs; No JVD, RRR, No Edema, - Extremities: No Edema, No Clubbing, Cyanosis, - Skin: No Rash or Ulcers, No Nodules or Sclerosis, - Neurological: Alert and Oriented x 3, NL Sensation Result Diagrams: 10/06/18 05:31 10/06/18 05:31 Microbiology and Other Data: Microbiology 09/29/18 13:06 Aerobic Blood Culture - Final Blood Venous No Growth Day 5 Anaerobic Blood Culture - Final No Growth Day 5 09/29/18 12:55 Aerobic Blood Culture - Final Blood Venous No Growth Day 5 Anaerobic Blood Culture - Final No Growth Day 5 09/26/18 14:35 Blood Culture - Final Blood Venous Streptococcus Pneumoniae 09/28/18 12:53 Throat Culture - Final Throat YEAST Normal Tram 09/27/18 08:08 Gram Stain - Final Sputum Trach Sputum Culture - Final Normal Tram 09/26/18 14:35 Aerobic Blood Culture - Final Blood Venous Streptococcus Pneumoniae 09/26/18 15:28 Throat Culture - Final Throat Streptococcus Pneumoniae Haemophilus Influenzae 09/26/18 16:28 Gram Stain - Final Sputum Sputum Culture - Final Streptococcus Pneumoniae Normal Tram 09/26/18 16:55 Nasal Screen MRSA (PCR) - Final Nasal Mrsa Not Detected 09/26/18 16:28 Legionella Urinary Antigen - Final Urine Negative Legionella Antigen Streptococcus pneumoniae Ag Screen - Final Positive S. Pneumo Antigen Assess/Plan/Problems-Billing Assessment: - Patient Problems (1) Sepsis Current Visit: Yes Status: Acute Comment: Shock resolved. S. pneumoniae bacteremia, BL lung infiltrates. Dr. Saul performed thoracentesis 10/07, labs pending. Continue ceftriaxone. (2) Swallowing dysfunction Current Visit: Yes Status: Acute Comment: Video swallow showed both penetration and aspiration, PEG tube reommended Continue TF for now. Discussed with Dr. Vicente 10/07, possible can have PEG 10/08. (3) Cardiomyopathy Current Visit: Yes Status: Acute Code(s): I42.9 - CARDIOMYOPATHY, UNSPECIFIED SNOMED Code(s): 50857843 Comment: BB started 10/06. Will need outpt fup. (4) Atrial fibrillation Current Visit: Yes Status: Acute Code(s): I48.91 - UNSPECIFIED ATRIAL FIBRILLATION SNOMED Code(s): 48877703 Comment: Converted to NSR 10/06/18. Continue metoprolol. Candidate for AC after acute measures completed. Mag and K+ replenishment given 10/06. (5) Tobacco abuse Current Visit: Yes Status: Acute Code(s): Z72.0 - TOBACCO USE SNOMED Code( s): 023485623 Comment: Pt advised to quit smoking and avoid second hand smoke.
[2018-10-07 17:36] LABS: Body Fluid Mono 28 %; Body Fluid Other Cells 11
--- NOTE | 2018-10-07 19:20 | CONS ---
CC: Dr. Eber Andres* CONSULTATION REPORT: DATE OF CONSULT: 10/07/18 REASON FOR CONSULT: Consideration for PEG tube placement. HISTORY OF PRESENT ILLNESS: This is a 68-year-old male with a history of hypertension, hypothyroidism, and head and neck cancer with a distant history of prior PEG placement and head and neck radiation and surgery in 2008, who presented to the emergency department with altered mental status and dyspnea. He was found to have severe sepsis and septic shock with evidence of end organ damage including acute kidney injury and pulmonary insufficiency. He had a complicated course in the ICU with vasopressor support and respiratory insufficiency. Throughout his hospital course, he slowly improved and has been discharged to the floor. He has had an NG tube in since roughly 10/02/18 and has been getting nutrition through that. He had a modified barium swallow done on 10/06/18, which showed penetration and aspiration. GI was consulted in regards to ongoing nutrition, concern for aspiration, and possible PEG tube placement. He denies any abdominal pain, any diarrhea or constipation. No black or blood in his stool. No fever, chills, or rigors. He still is quite short of breath, but does feel better today after having a thoracentesis. He states that he had a prior PEG tube placed in roughly 2008 when he had his head and neck cancer and that was in place for about 6 months or so and then removed. The remainder of the 14-point review of systems is grossly negative. PAST MEDICAL HISTORY: Head and neck cancer, 2008; PEG tube placement; hypothyroidism; hypertension. PAST SURGICAL HISTORY: Right neck resection for cancer as above and PEG tube placement. HOME MEDICATIONS: Include: 1. Levothyroxine. 2. Valsartan/hydrochlorothiazide. 3. Amlodipine. ALLERGIES: No known drug allergies. FAMILY HISTORY: Denies any GI cancer or GI malignancies and no inflammatory bowel disease. SOCIAL HISTORY: Does not use alcohol. Does smoke. REVIEW OF SYSTEMS: The remainder of the 14-point review of systems was grossly negative. PHYSICAL EXAM: Vital Signs: Blood pressure 134/66, oxygen saturation 92% on 5 L, pulse is 55. In general, he is alert and oriented x3. He does have conversational dyspnea. HEENT: Evidence of prior right extensive surgical intervention. Eyes: Sclerae anicteric. Conjunctivae pink. Cardiovascular: Irregular rate and rhythm. S1, S2. Respiratory: Diffuse rhonchi and rales, poor effort, right greater than left. Abdomen: Soft, nontender, nondistended. Prior PEG tube site left of the subxiphoid region. Bowel sounds positive. Extremities: No edema, no cyanosis. LABORATORY DATA: WBC count 12, hemoglobin is 11.7, platelet count is 467. INR 1.14. Albumin 2.6. ASSESSMENT AND PLAN: This is a 68-year-old male with prior head and neck cancer back in 2008 with a prior PEG tube placement, who now presented with septic shock secondary to pneumonia. He had a complicated course and now has aspiration of thin liquids on video fluoroscopy. 1. Aspiration and protein-calorie malnutrition. I was asked by the primary care team to evaluate the patient for possible PEG tube placement. I discussed the risks and benefits of PEG tube placement with Sergei in detail. He is familiar with this procedure as he had one before in 2008; however, he is still hesitant about pursuing this. He understands the consequences of aspiration and also of malnutrition in terms of ongoing healing and recovery. He will think about that and let us know on 10/08/18. My other concern is his continued ongoing respiratory demand. He is currently 92% on 5 L. For a safe endoscopy, I would prefer to be able to wean his oxygen requirements appropriately. He still has some conversational dyspnea upon talking. Dr. Ramírez will be in to re-discuss this potential procedure on 10/08. It is reasonable to hold feeds and his Lovenox if his respiratory status does improve and contact the GI team. 2. Septic shock secondary to aspiration pneumonia, slowly improving. 3. Pulmonary insufficiency. [id number]/[facility] #: [id number] [facility]ITAL[facility]limp[facility]
--- NOTE | 2018-10-07 19:54 | PN ---
Hospitalist Progress Note Date of Service: 10/07/18 Called by RN, patient on 15L and having desaturation to 87%. Patient had thoracentesis today. Respiratory at bedside for treatment. Breath sounds with poor air entry bilaterally. Will obtain stat CXR, ABG and continue neb treatment with respiratory. If any new findings or no improvement, will upgrade to ICU for bipap and additional respiratory management.
[2018-10-07] MEDS: Albuterol/Ipratropium NEB.SOL* Albuterol 2.5 MG/Ipratropium 0.5 MG 3 ML INH PRN (20:02)
[2018-10-08] MEDS: Insulin LISPRO* 1 UNITS UNIT SUBCUT SCH ×5 (01:21→23:53)
--- NOTE | 2018-10-08 03:24 | PRO ---
THORACENTESIS REPORT: DATE OF PROCEDURE: 10/07/18 - ROOM #[id number] PROCEDURE PERFORMED: Ultrasound-guided thoracentesis on the right side. PREPROCEDURAL DIAGNOSIS: Pleural effusion, rule out pneumonia. ANESTHESIA: Local anesthesia with 1% lidocaine 5 mL. DESCRIPTION OF PROCEDURE: Informed consent was obtained from the patient prior to the procedure after all the risks and benefits were thoroughly explained. Appropriate time-out was performed and agreed on by the attending staff. The patient with Strep pneumoniae with a prolonged hospital stay. Strict aseptic precautions and barrier techniques were followed. Ultrasound was utilized at bedside to localize moderate amounts of right pleural effusion free flowing. Thoracentesis was performed at bedside. A CareFusion 8-St Helenian thoracentesis catheter was utilized. Area was anesthetized by 1% lidocaine intradermally subcutaneously taking precautions. A #11 scalpel blade was utilized to make a stab incision. CareFusion 8-St Helenian thoracentesis catheter was then introduced under manual suction. Catheter was left in place, the needle was removed. Fluid was drained. 650 mL of free flowing fluid was removed. The patient tolerated the procedure well. Post-procedure chest x-ray was ordered and is pending at this time. [id number]/[facility] #: [id number] [facility]ENT[facility]limp[facility]
[2018-10-08] MEDS: Levothyroxine TAB* 75 MCG TAB PO SCH (06:10)
--- NOTE | 2018-10-08 08:13 | PN ---
Subjective Date of Service: 10/08/18 Interval History: No new c/o. No pain. Objective Active Medications: Acetaminophen (Tylenol Tab*) 650 mg PO Q4H PRN PRN Reason: FEVER/PAIN Last Admin: 09/29/18 04:11 Dose: 650 mg Albuterol (Ventolin 2.5 Mg/3 Ml Neb.Patricia*) 2.5 mg INH Q4H PRN PRN Reason: SOB/WHEEZING Last Admin: 09/30/18 23:25 Dose: 2.5 mg Albuterol/Ipratropium (Duoneb (Albuterol 2.5 Mg/Ipratropium 0.5 Mg)) 1 neb INH [id number] AWAKE PRN PRN Reason: sob/wheexing Last Admin: 10/07/18 20:02 Dose: 1 neb Dextrose (D50w Syringe 50 Ml*) 12.5 gm IV PUSH .FOR FS < 60 - SS PRN PRN Reason: FS < 60 Docusate Sodium (Colace Liq*) 100 mg PO BID PRN PRN Reason: CONSTIPATION Famotidine (Pepcid Tab*) 20 mg PO DAILY [facility] Last Admin: 10/07/18 09:03 Dose: 20 mg Ceftriaxone Sodium 1 gm/ (Sodium Chloride) 50 mls @ 200 mls/hr IVPB Q24H [facility] Last Admin: 10/07/18 09:59 Dose: 200 mls/hr Insulin Human Lispro (Humalog*) 0 units SUBCUT FS Q6 ICU [facility]; Protocol Last Admin: 10/08/18 06:10 Dose: Not Given Levothyroxine Sodium (Synthroid Tab*) 75 mcg PO 0600 [facility] Last Admin: 10/08/18 06:10 Dose: 75 mcg Metoprolol Tartrate (Lopressor Tab*) 25 mg PO BID [facility] Last Admin: 10/07/18 20:33 Dose: 25 mg Metoprolol Tartrate (Lopressor Iv*) 5 mg IV Q3H PRN PRN Reason: BLOOD PRESSURE Nystatin (Nystatin Top Powder*) 1 applic TOPICAL BID PRN PRN Reason: WOUND CARE Ondansetron HCl (Zofran Inj*) 4 mg IV Q6H PRN PRN Reason: NAUSEA Polyethylene Glycol/Electrolytes (Miralax*) 17 gm PO DAILY PRN PRN Reason: CONSTIPATION Potassium Chloride (Klor-Con Liquid*) 20 meq PO DAILY [facility] Last Admin: 10/07/18 09:03 Dose: 20 meq Senna (Senokot Tab*) 1 tab PO BEDTIME PRN PRN Reason: CONSTIPATION Vital Signs - 8 hr 10/08/18 10/08/18 03:19 07:56 Temperature 98.6 F 98.0 F Pulse Rate 63 66 Respiratory 24 28 Rate Blood Pressure 134/58 133/61 (mmHg) O2 Sat by Pulse 89 87 Oximetry Oxygen Devices in Use Now: Simple Face Mask, OxyMask Appearance: Alert, partly up in bed. Neutral affect, looks comfortable. Eyes: No Scleral Icterus Respiratory: Symmetrical Chest Expansion and Respiratory Effort, Clear to Auscultation, Clear to Percussion Cardiovascular: NL Sounds; No Murmurs; No JVD, RRR, No Edema, - Skin: No Rash or Ulcers, No Nodules or Sclerosis, - Neurological: Alert and Oriented x 3, NL Sensation Result Diagrams: 10/06/18 05:31 10/08/18 13:15 Microbiology and Other Data: Microbiology 09/29/18 13:06 Aerobic Blood Culture - Final Blood Venous No Growth Day 5 Anaerobic Blood Culture - Final No Growth Day 5 09/29/18 12:55 Aerobic Blood Culture - Final Blood Venous No Growth Day 5 Anaerobic Blood Culture - Final No Growth Day 5 09/26/18 14:35 Blood Culture - Final Blood Venous Streptococcus Pneumoniae 09/28/18 12:53 Throat Culture - Final Throat YEAST Normal Trma 09/27/18 08:08 Gram Stain - Final Sputum Trach Sputum Culture - Final Normal Tram 09/26/18 14:35 Aerobic Blood Culture - Final Blood Venous Streptococcus Pneumoniae 09/26/18 15:28 Throat Culture - Final Throat Streptococcus Pneumoniae Haemophilus Influenzae 09/26/18 16:28 Gram Stain - Final Sputum Sputum Culture - Final Streptococcus Pneumoniae Normal Tram 09/26/18 16:55 Nasal Screen MRSA (PCR) - Final Nasal Mrsa Not Detected 09/26/18 16:28 Legionella Urinary Antigen - Final Urine Negative Legionella Antigen Streptococcus pneumoniae Ag Screen - Final Positive S. Pneumo Antigen Assess/Plan/Problems-Billing Assessment: - Patient Problems (1) Sepsis Current Visit: Yes Status: Acute Comment: Shock resolved. S. pneumoniae bacteremia, BL lung infiltrates. Dr. Saul performed thoracentesis 10/07, labs c/w parqapneumonic infiltrate. C&S pending. Continue ceftriaxone. (2) Swallowing dysfunction Current Visit: Yes Status: Acute Comment: Video swallow showed both penetration and aspiration, PEG tube recommended Continue TF for now. Discussed with Dr. Vicente 10/07, possible can have PEG 10/08. (3) Cardiomyopathy Current Visit: Yes Status: Acute Code(s): I42.9 - CARDIOMYOPATHY, UNSPECIFIED SNOMED Code(s): 17614567 Comment: BB started 10/06. Start lisinopril 2.5 mg daily 10/08. Will need outpt fup. (4) Atrial fibrillation Current Visit: Yes Status: Acute Code(s): I48.91 - UNSPECIFIED ATRIAL FIBRILLATION SNOMED Code(s): 49960123 Comment: Converted to NSR 10/06/18. Continue metoprolol. Candidate for AC after acute measures completed. Mag and K+ replenishment given 10/06. (5) Tobacco abuse Current Visit: Yes Status: Acute Code(s): Z72.0 - TOBACCO USE SNOMED Code( s): 440199821 Comment: Pt advised to quit smoking and avoid second hand smoke. (6) COPD (chronic obstructive pulmonary disease) Current Visit: Yes Status: Acute Code(s): J44.9 - CHRONIC OBSTRUCTIVE PULMONARY DISEASE, UNSPECIFIED SNOMED Code(s): 45647018 Comment: CO2 retention on ABG 10/07/18. A-A gradient increased after thoracentesis 10/07, on 15 L O2 10/08. He continued to worsen and was transferred to the ICU 10/08/18.
[2018-10-08] MEDS: Metoprolol Tartrate TAB* 25 MG PO SCH (08:17)
[2018-10-08] MEDS: Potassium Chloride LIQUID* 20 MEQ PACKET PO SCH (08:17)
[2018-10-08] MEDS: Famotidine TAB* 20 MG PO SCH (08:17)
[2018-10-08] MEDS ORDERED: Lisinopril TAB* 5 MG NG TUBE SCH (09:00)
[2018-10-08] MEDS: cefTRIAXone(*) 1 GM in NS 0.9% 50 ML* 50 ML IVPB SCH (10:46)
[2018-10-08] MEDS ORDERED: Furosemide IV* 10 MG/ML 2 ML VIAL (20 MG) IV SLOW PU ONE (10:54)
--- NOTE | 2018-10-08 11:02 | PN ---
Date of Service: 10/08/18 Critical Care Services: 68M with htn, hypothyroid presented for septic shock and respiratory failure 2/ 2 strep pneumo/h flu pneumonia. Patient now extubated. 10/04: DC tlc, dc a line, dc argueta today. DC ng tube if passes swallow eval. 10/05: fell overnight. CT head/c spine neg. failed swallow eval yesterday. plan for MBS on thu. 10/08: Was transferred to the floor. Failed swallow. PEG recommended. Had thoracentesis showing parapneumonic effusion. Became increasingly hypoxic and was transferred back to ICU today. Vital Signs: Temp Pulse Resp BP SpO2 FiO2 99.8 F 66 21 136/75 88 100 10/08/18 10:29 10/08/18 10:29 10/08/18 10:29 10/08/18 10:29 10/08/18 10:29 10/08 10:25 Physical Exam: Gen - nad, chronically ill heent - ncat, eomi, perrl neck - no jvd, cv - s1/s2, no murmur lungs - +ronchi abd - soft, nt ext - no cce neuro - non-focal Fluid Balance (Past 24 Hours): I= O= Net Intake & Output 10/06/18 10/07/18 10/08/18 10/09/18 06:59 06:59 06:59 06:59 Intake Total 50 2385 1368 Output Total 945 1150 600 Balance -895 1235 768 Intake: IV Fluids 70 ABX - CEFTRIAXONE 55 NSS 15 IVPB 50 105 ABX - CEFTRIAXONE 50 55 Mag 2 gm 50 Oral 0 0 0 Tube Feeding 2110 908 Tube Feeding Flush Amount 170 390 Output: Urine 945 1150 600 Other: Estimated Void Small Date of Last Bowel 10/05/18 Movement # Bowel Movements 1 0 Estimated Stool Amount Large # Voids 5 2 Labs: Laboratory Results - last 24 hr 10/07/18 10/07/18 10/07/18 12:04 13:20 18:23 Patient Temperature ABG pH ABG pH (Temp Correct) ABG pCO2 ABG pCO2 (Temp Corrct ABG pO2 ABG pO2 (Temp Correct ABG HCO3 ABG O2 Saturation ABG Base Excess Respiration Rate O2 Delivery Device Ventilator Type Vent Mode FiO2 Inspiratory Time PEEP Pressure Support Pressure Control EPAP IPAP BiPAP POC Glucose (mg/dL) 139 H 124 H Fluid Source Pleural fluid Fluid Volume 8 Fluid Color Yellow Fluid Appearance Cloudy Fluid WBC 1184 Fluid RBC 757 Fluid Tot Cell Count 100 Fluid Neutrophils 56 Fluid Lymphocytes 16 Fluid Monocytes 28 Fluid Other Cells 11 Fluid Cell Count Rvw By 10/07/18 10/07/18 10/08/18 20:10 23:49 06:09 Patient Temperature Not Reportable ABG pH 7.42 ABG pH (Temp Correct) Not Reportable ABG pCO2 56 H ABG pCO2 (Temp Corrct Not Reportable ABG pO2 64 L ABG pO2 (Temp Correct Not Reportable ABG HCO3 32.7 H ABG O2 Saturation 94.3 L ABG Base Excess 10.1 H Respiration Rate Not Reportable O2 Delivery Device salter Ventilator Type Not Reportable Vent Mode Not Reportable FiO2 Not Reportable Inspiratory Time Not Reportable PEEP Not Reportable Pressure Support Not Reportable Pressure Control Not Reportable EPAP Not Reportable IPAP Not Reportable BiPAP Not Reportable POC Glucose (mg/dL) 135 H 118 H Fluid Source Fluid Volume Fluid Color Fluid Appearance Fluid WBC Fluid RBC Fluid Tot Cell Count Fluid Neutrophils Fluid Lymphocytes Fluid Monocytes Fluid Other Cells Fluid Cell Count Rvw By 10/08/18 08:34 Patient Temperature ABG pH ABG pH (Temp Correct) ABG pCO2 ABG pCO2 (Temp Corrct ABG pO2 ABG pO2 (Temp Correct ABG HCO3 ABG O2 Saturation ABG Base Excess Respiration Rate O2 Delivery Device Ventilator Type Vent Mode FiO2 Inspiratory Time PEEP Pressure Support Pressure Control EPAP IPAP BiPAP POC Glucose (mg/dL) 113 H Fluid Source Fluid Volume Fluid Color Fluid Appearance Fluid WBC Fluid RBC Fluid Tot Cell Count Fluid Neutrophils Fluid Lymphocytes Fluid Monocytes Fluid Other Cells Fluid Cell Count Rvw By Studies: CXR 10/04 IMPRESSION: Density obscuring the bilateral lung bases worse on the right and the left could be due to pleural effusion and/or consolidation. Overall the degree of aeration has deteriorated since the most recent October 03, 2018 chest x-ray. CT head 10/04 IMPRESSION: No acute intracranial pathology. CT c spine 10/04 IMPRESSION: 1. No acute cervical spine fracture. 2. Other chronic findings, as above. CXR 10/08 IMPRESSION: 1. LINES AND TUBES ABOVE. 2. LOW LUNG VOLUMES. 3. BILATERAL PLEURAL EFFUSIONS. 4. NO APPRECIABLE PNEUMOTHORAX. Impression: 68M with htn, hypothyroid presented for septic shock and respiratory failure 2/ 2 strep pneumo pneumonia and bacteremia. Chronically aspirating. Plan: Neuro - good mental status CV - shock, afib, reduced ef 1) Shock - improved 2.) CHF - tte with reduced ef - c/w bblocker, acei - trial of lasix 3) afib - has resolved pulm - hypoxic respiratory failure - 2/2 pna/pleural effusions/chronic aspiration - c/w abx - chest pt - nebulizers q4h - cough assist - frequent suctioning id - sepstic shock, strep bacteremia - remains on ceftriaxone - f/u cultures gi - chronic aspiration - c/w tube feeds - will eventually need PEG renal - monitor bmp - replete lytes heme - monitor cbc endo - hypothyroid - c/w synthroid lines - piv ppx - gi/dvt full code Critical Care Time: 50 mins
[2018-10-08 12:14] LABS: Lactate Dehydrogenase, BF 182 U/L
[2018-10-08] MEDS ORDERED: Succinylcholine* 20 MG/ML 10 ML VIAL ONE (13:15)
[2018-10-08] MEDS ORDERED: Etomidate* 2 MG/ML 20 ML VIAL (40 MG) ONE (13:23)
[2018-10-08] MEDS ORDERED: Propofol* 100 ML ONE ×2 (13:28→20:55)
--- NOTE | 2018-10-08 14:08 | OP ---
Operative Report - Blank - Operative Report Date of Operation: 10/08/18 Note: Central Venous Catheter (CVC, Central Line) Placement Date: 10/08/18 Time: 130pm Indication: Hemodynamic monitoring/Intravenous access Attending: Leonor Bonner time-out was completed verifying correct patient, procedure, site, positioning , and special equipment if applicable. The patient was placed in a dependent position appropriate for central line placement based on the vein to be cannulated. The patients left neck was prepped and draped in sterile fashion. 1 % Lidocaine was used to anesthetize the surrounding skin area. A triple lumen 7- [place] catheter was introduced into the the internal jugular vein using the Seldinger technique and under ultrasound guidance. The catheter was threaded smoothly over the guide wire and appropriate blood return was obtained. Each lumen of the catheter was evacuated of air and flushed with sterile saline. The catheter was then sutured in place to the skin and a sterile dressing applied. Perfusion to the extremity distal to the point of catheter insertion was checked and found to be adequate. Estimated Blood Loss: minimal The patient tolerated the procedure well and there were no complications. The distal brown port was unable to aspirate blood, however, both proximal ports are working.
--- NOTE | 2018-10-08 14:10 | OP ---
Operative Report - Blank - Operative Report Date of Operation: 10/08/18 Note: Endotracheal Intubation Date: 10/08/18 Time: 130pm Indication: Respiratory Distress Attending: Leonor Bonner time-out was completed verifying correct patient, procedure, site, positioning , and special equipment if applicable. The patient was placed in a flat position. Sedation was obtained using with <Etomidate 20mg>. The patient was easily ventilated using an ambu bag. The [employer]/ MAC 4 BLADE was used and inserted into the oropharynx at which time there was a Grade 1 view of the vocal cords. A 7.5-lao endotracheal tube was inserted and visualized going through the vocal cords. The stylette was removed. Colorimetric change was visualized on the CO2 meter. Breath sounds were heard in both lung campos equally. The endotracheal tube was placed at 25 cm, measured at the teeth. A chest x-ray was ordered to assess for pneumothorax and verify endotracheal tube placement. Estimated Blood Loss: none The patient tolerated the procedure well and there were no complications.
[2018-10-08] MEDS ORDERED: Norepinephrine VIAL* 1 MG/ML 4 ML VIAL ONE (14:11)
[2018-10-08 14:17] LABS: BUN/Creatinine Ratio 21.7 (8-20); Calcium 9.1 mg/dL (8.6-10.3); Magnesium 1.7 mg/dL (1.9-2.7); Potassium 4.7 mmol/L (3.5-5.0)
[2018-10-08] MEDS ORDERED: Magnesium Sulfate 2 GM IV* 2 GM/50 ML BAG IVPB ONE (14:40)
[2018-10-08] MEDS ORDERED: Iohexol 350* (CONTRAST) 500 ML MDV IV ONE (14:49)
[2018-10-08] MEDS: Midazolam* 1 MG/ML 2 ML VIAL (2 MG) ONE (15:00)
[2018-10-08] MEDS ORDERED: Midazolam* 1 MG/ML 10 ML VIAL (10 MG) ONE (15:32)
[2018-10-08] MEDS ORDERED: Midazolam* 1 MG/ML 2 ML VIAL (2 MG) IV SLOW PU ONE (15:43)
--- NOTE | 2018-10-08 15:52 | OP ---
Operative Report - Blank - Operative Report Date of Operation: 10/08/18 Note: Bronchoscopy procedure note Date: 10/08/18 Time: 330pm Indication: Respiratory failure / Pna Sedation: Propofol gtt. Versed 2mg IVP. Discription: Bronchoscope introduced via ET tube. Copious secretions thorughout airway. Airway mucosa friable. BAL done in the Lingula. Patient tolerated procedure without complication.
[2018-10-08] MEDS: NS 0.9% 250 ML* 246 ML with Norepinephrine VIAL* 4 MG IV SCH ×4 (16:36→20:43)
[2018-10-08] MEDS ORDERED: Albuterol/Ipratropium NEB.SOL* Albuterol 2.5 MG/Ipratropium 0.5 MG 3 ML INH STA (16:53)
[2018-10-08] MEDS: Albuterol 2.5 MG/3 ML NEB.SOL* (0.083%) INH SCH ×2 (18:48→23:11)
[2018-10-09] MEDS: CHLORHEXADINE (PERIDEX) VENT ORAL CARE TOPICAL SCH ×6 (00:08→20:03)
[2018-10-09] MEDS: NS 0.9% 250 ML* 246 ML with Norepinephrine VIAL* 4 MG IV SCH ×2 (01:44)
[2018-10-09] MEDS: Albuterol 2.5 MG/3 ML NEB.SOL* (0.083%) INH SCH ×2 (03:17→07:16)
[2018-10-09] MEDS: Propofol* 1000 MG (10 MG/ML 100 ml) @ Per Protocol (in ICU Pyxis) IV SCH ×2 (03:41→09:10)
[2018-10-09] MEDS ORDERED: Digoxin IV* 0.5 MG/2 ML AMP (0.25 MG/ML) IV SLOW PU ONE (05:20)
[2018-10-09] MEDS: Insulin LISPRO* 1 UNITS UNIT SUBCUT SCH ×2 (06:05→11:48)
[2018-10-09] MEDS: Levothyroxine TAB* 75 MCG TAB PO SCH (06:06)
[2018-10-09 06:38] LABS: Hematocrit 35 % (42-52); Hemoglobin 11.6 g/dl (14.0-18.0); Mean Corpuscular HGB Conc 33 g/dl (31-36); Mean Corpuscular Hemoglobin 29 pg (27-31); Mean Corpuscular Volume 87 fL (80-94); Mean Platelet Volume 7.1 fL (7.4-10.4); Platelet Count 607 10^3/ul (150-450); Red Blood Count 3.97 10^6/ul (4.00-5.40); Red Cell Distribution Width 14 % (10.5-15); White Blood Count 20.3 10^3/ul (3.5-10.8)
[2018-10-09 06:53] LABS: BUN/Creatinine Ratio 28.4 (8-20); Calcium 8.5 mg/dL (8.6-10.3); EGFR Non-African American 94.8 (>60); Magnesium 1.8 mg/dL (1.9-2.7); Potassium 4.2 mmol/L (3.5-5.0)
[2018-10-09 07:12] LABS: ABS Basophils 0 10^3/ul (0-0.2); ABS Eosinophils 0 10^3/ul (0-0.6); ABS Lymphocytes 1.1 10^3/ul (1.0-4.8); ABS Monocytes 1.3 10^3/ul (0-0.8); ABS Neutrophils 17.9 10^3/ul (1.5-7.7); ABS Nucleated RBC 0 10^3/ul; Eosinophil % 0.2 %; Lymphocyte % 5.2 %; Nucleated Red Blood Cells % 0.1
[2018-10-09] MEDS: Norepinephrine VIAL* 4 MG in NS 0.9% 250 ML* 246 ML IV SCH ×2 (07:51→20:04)
[2018-10-09] MEDS: Famotidine TAB* 20 MG PO SCH (08:10)
[2018-10-09] MEDS: Potassium Chloride LIQUID* 20 MEQ PACKET PO SCH (08:10)
[2018-10-09] MEDS ORDERED: Enoxaparin(*) 40 MG/0.4 ML SYR SUBCUT SCH (09:00)
[2018-10-09] MEDS ORDERED: Magnesium Sulfate 1 GM IV* 1 GM/100 ML BAG IV ONE (09:00)
[2018-10-09] MEDS ORDERED: Piperacillin/Tazobac ADVAN(*) 3.375 GM in NS 0.9% 100 ML* 100 ML IVPB ONE (09:00)
[2018-10-09] MEDS ORDERED: Zosyn per Pharmacy* NOTE FOLLOW UP SCH (09:00)
--- NOTE | 2018-10-09 09:12 | PN ---
Date of Service: 10/09/18 Critical Care Services: 68M with htn, hypothyroid presented for septic shock and respiratory failure 2/ 2 strep pneumo/h flu pneumonia. Patient now extubated. 10/04: DC tlc, dc a line, dc argueta today. DC ng tube if passes swallow eval. 10/05: fell overnight. CT head/c spine neg. failed swallow eval yesterday. plan for MBS on thu. 10/08: Was transferred to the floor. Failed swallow. PEG recommended. Had thoracentesis showing parapneumonic effusion. Became increasingly hypoxic and was transferred back to ICU today. 10/09: Required intubation yesterday. Bronchoscopy with copious mucus plugging. Went into Afib overnight. Vital Signs: Temp Pulse Resp BP SpO2 FiO2 99.5 F 98 13 103/68 93 50 10/09/18 07:01 10/09/18 07:23 10/09/18 07:23 10/09/18 07:00 10/09/18 07:23 10/09 07:23 Physical Exam: Gen - intubated and sedated heent - ncat, perrl neck - no jvd, + old neck scar cv - s1/s2, tachy, irregular lungs - +ronchi abd - soft, nt ext - no cce neuro - unresponsive Fluid Balance (Past 24 Hours): I= O= Net Intake & Output 10/07/18 10/08/18 10/09/18 10/10/18 06:59 06:59 06:59 06:59 Intake Total 2385 1368 465 Output Total 4534 698 1654 Balance 1235 768 -835 Weight 70 kg Intake: IV Fluids 70 261 ABX - CEFTRIAXONE 55 NS (0.9%) 57 NSS 15 204 IVPB 105 ABX - CEFTRIAXONE 55 Mag 2 gm 50 Medicated IV 204 CC - Propofol/Diprivan 204 Oral 0 0 0 Tube Feeding 2110 908 Tube Feeding Flush Amount 170 390 Output: Urine 1150 600 675 [place] 625 Other: # Bowel Movements 0 # Voids 5 2 Labs: Laboratory Results - last 24 hr 10/07/18 10/07/18 10/07/18 13:20 13:20 13:20 WBC RBC Hgb Hct MCV MCH MCHC RDW Plt Count MPV Neut % (Auto) Lymph % (Auto) [place] % (Auto) Eos % (Auto) Baso % (Auto) Absolute Neuts (auto) Absolute Lymphs (auto) Absolute Monos (auto) Absolute Eos (auto) Absolute Basos (auto) Absolute Nucleated RBC Nucleated RBC % Sodium Potassium Chloride Carbon Dioxide Anion Gap BUN Creatinine Est GFR ( Amer) Est GFR (Non-Af Amer) BUN/Creatinine Ratio Glucose POC Glucose (mg/dL) Calcium Magnesium Fluid Source Pleural fluid Pleural fluid Fluid Cell Count Rvw By Fluid Total Protein 2.7 Fluid LDH 182 10/08/18 10/08/18 10/09/18 13:15 23:47 05:41 WBC RBC Hgb Hct MCV MCH MCHC RDW Plt Count MPV Neut % (Auto) Lymph % (Auto) [place] % (Auto) Eos % (Auto) Baso % (Auto) Absolute Neuts (auto) Absolute Lymphs (auto) Absolute Monos (auto) Absolute Eos (auto) Absolute Basos (auto) Absolute Nucleated RBC Nucleated RBC % Sodium 137 Potassium 4.7 Chloride 98 L Carbon Dioxide 35 H Anion Gap 4 BUN 15 Creatinine 0.69 Est GFR ( Amer) 138.0 Est GFR (Non-Af Amer) 114.0 BUN/Creatinine Ratio 21.7 H Glucose 112 H POC Glucose (mg/dL) 133 H 163 H Calcium 9.1 Magnesium 1.7 L Fluid Source Fluid Cell Count Rvw By Fluid Total Protein Fluid LDH 10/09/18 10/09/18 06:30 06:30 WBC 20.3 H RBC 3.97 L Hgb 11.6 L Hct 35 L MCV 87 MCH 29 MCHC 33 RDW 14 Plt Count 607 H D MPV 7.1 L Neut % (Auto) 88.1 Lymph % (Auto) 5.2 [place] % (Auto) 6.4 Eos % (Auto) 0.2 Baso % (Auto) 0.1 Absolute Neuts (auto) 17.9 H Absolute Lymphs (auto) 1.1 Absolute Monos (auto) 1.3 H Absolute Eos (auto) 0 Absolute Basos (auto) 0 Absolute Nucleated RBC 0 Nucleated RBC % 0.1 Sodium 137 Potassium 4.2 Chloride 100 L Carbon Dioxide 29 Anion Gap 8 BUN 23 Creatinine 0.81 Est GFR ( Amer) 114.7 Est GFR (Non-Af Amer) 94.8 BUN/Creatinine Ratio 28.4 H Glucose 189 H POC Glucose (mg/dL) Calcium 8.5 L Magnesium 1.8 L Fluid Source Fluid Cell Count Rvw By Fluid Total Protein Fluid LDH Studies: CXR 10/04 IMPRESSION: Density obscuring the bilateral lung bases worse on the right and the left could be due to pleural effusion and/or consolidation. Overall the degree of aeration has deteriorated since the most recent October 03, 2018 chest x-ray. CT head 10/04 IMPRESSION: No acute intracranial pathology. CT c spine 10/04 IMPRESSION: 1. No acute cervical spine fracture. 2. Other chronic findings, as above. CXR 10/08 IMPRESSION: 1. LINES AND TUBES ABOVE. 2. LOW LUNG VOLUMES. 3. BILATERAL PLEURAL EFFUSIONS. 4. NO APPRECIABLE PNEUMOTHORAX. Impression: 68M with htn, hypothyroid presented for septic shock and respiratory failure 2/ 2 strep pneumo pneumonia and bacteremia. Chronically aspirating. Intubated for 3rd time yesterday. Atrial fibrillation (Acute) I48.91 COPD (chronic obstructive pulmonary disease) (Acute) J44.9 Cardiomyopathy (Acute) I42.9 Pneumococcal bacteremia (Acute) R78.81 Pneumococcal pneumonia (Acute) J13 Respiratory failure (Acute) J96.90 Sepsis (Acute) Shock (Acute) R57.9 Swallowing dysfunction (Acute) Tobacco abuse (Acute) Z72.0 Plan: Neuro - pain control CV - shock, afib, reduced ef 1) Shock - sepsis vs 2/2 sedation - on levophed for bp support 2.) CHF - tte with reduced ef - bblocker, acei held for hypotension 3) afib - on lovenox bid - will switch propofol to fentanyl with hope that we can reduce levophed requirement which is likely exacerbating afib pulm - hypoxic respiratory failure - 2/2 pna/pleural effusions/chronic aspiration - s/p bronchoscopy yesterday - copious secretions - duoneb q4 standing - chest pt - wean vent as tolerated id - septic shock, strep bacteremia, hcap - wbc increased today - switched to vanc/zosyn for hcap - f/u cultures gi - chronic aspiration - c/w tube feeds - will eventually need PEG renal - monitor bmp - replete lytes heme - monitor cbc endo - hypothyroid - c/w synthroid lines - piv ppx - gi/dvt full code Critical Care Time: 70 mins
[2018-10-09] MEDS ORDERED: Vancomycin(*) 1,000 MG in NS 0.9% 250 ML* 250 ML IVPB ONE (09:30)
[2018-10-09] MEDS: fentaNYL INFUSION 50 MCG/ML* 2,500 MCG/50 ML BAG IV SCH (09:37)
[2018-10-09] MEDS ORDERED: Albuterol/Ipratropium NEB.SOL* Albuterol 2.5 MG/Ipratropium 0.5 MG 3 ML INH SCH (10:00)
[2018-10-09] MEDS ORDERED: Vancomycin per Pharmacy* NOTE FOLLOW UP PRN (10:07)
[2018-10-09] MEDS: Enoxaparin(*) 80 MG/0.8 ML SYR SUBCUT SCH ×2 (10:42→21:07)
[2018-10-09] MEDS: Albuterol/Ipratropium NEB.SOL* Albuterol 2.5 MG/Ipratropium 0.5 MG 3 ML INH SCH ×4 (10:48→23:00)
[2018-10-09] MEDS ORDERED: Lactated Ringers 1000 ML Bag* 1,000 ML IV SCH (13:00)
[2018-10-09] MEDS: ZOSYN 3.375 GM Q8H per EXTENDED INFUSION IVPB SCH ×4 (14:23→21:07)
[2018-10-09] MEDS: Vancomycin(*) 1,000 MG in NS 0.9% 250 ML* 250 ML IVPB SCH (16:29)
[2018-10-10] MEDS: CHLORHEXADINE (PERIDEX) VENT ORAL CARE TOPICAL SCH ×6 (00:23→19:54)
[2018-10-10] MEDS: Propofol* 1000 MG (10 MG/ML 100 ml) @ Per Protocol (in ICU Pyxis) IV SCH ×3 (00:23→17:03)
[2018-10-10] MEDS: Insulin LISPRO* 1 UNITS UNIT SUBCUT SCH ×4 (00:35→17:51)
[2018-10-10] MEDS: Vancomycin(*) 1,000 MG in NS 0.9% 250 ML* 250 ML IVPB SCH ×3 (01:27→17:03)
[2018-10-10] MEDS: Albuterol/Ipratropium NEB.SOL* Albuterol 2.5 MG/Ipratropium 0.5 MG 3 ML INH SCH ×6 (02:39→23:30)
[2018-10-10] MEDS: ZOSYN 3.375 GM Q8H per EXTENDED INFUSION IVPB SCH ×6 (04:40→20:45)
[2018-10-10] MEDS: Norepinephrine VIAL* 4 MG in NS 0.9% 250 ML* 246 ML IV SCH ×3 (04:42→20:45)
[2018-10-10 05:00] LABS: ABS Basophils 0.3 10^3/ul (0-0.2); ABS Eosinophils 0.2 10^3/ul (0-0.6); ABS Lymphocytes 1.3 10^3/ul (1.0-4.8); ABS Monocytes 1.2 10^3/ul (0-0.8); ABS Neutrophils 9.1 10^3/ul (1.5-7.7); ABS Nucleated RBC 0 10^3/ul; Eosinophil % 1.7 %; Hematocrit 34 % (42-52); Hemoglobin 11.1 g/dl (14.0-18.0); Lymphocyte % 10.9 %; Mean Corpuscular HGB Conc 33 g/dl (31-36); Mean Corpuscular Hemoglobin 29 pg (27-31); Mean Corpuscular Volume 89 fL (80-94); Mean Platelet Volume 7.2 fL (7.4-10.4); Nucleated Red Blood Cells % 0; Platelet Count 468 10^3/ul (150-450); Red Blood Count 3.82 10^6/ul (4.00-5.40); Red Cell Distribution Width 15 % (10.5-15); White Blood Count 12.1 10^3/ul (3.5-10.8)
[2018-10-10 05:18] LABS: BUN/Creatinine Ratio 22.2 (8-20); Calcium 8.1 mg/dL (8.6-10.3); EGFR Non-African American 94.8 (>60); Magnesium 1.8 mg/dL (1.9-2.7); Potassium 3.8 mmol/L (3.5-5.0)
[2018-10-10] MEDS: Levothyroxine TAB* 75 MCG TAB PO SCH (05:42)
[2018-10-10] MEDS ORDERED: Vancomycin Trough Check NOTE FOLLOW UP ONE (08:30)
--- NOTE | 2018-10-10 09:28 | PN ---
Date of Service: 10/10/18 Critical Care Services: 68M with htn, hypothyroid presented for septic shock and respiratory failure 2/ 2 strep pneumo/h flu pneumonia. Patient now extubated. 10/04: DC tlc, dc a line, dc argueta today. DC ng tube if passes swallow eval. 10/05: fell overnight. CT head/c spine neg. failed swallow eval yesterday. plan for MBS on thu. 10/08: Was transferred to the floor. Failed swallow. PEG recommended. Had thoracentesis showing parapneumonic effusion. Became increasingly hypoxic and was transferred back to ICU today. 10/09: Required intubation yesterday. Bronchoscopy with copious mucus plugging. Went into Afib overnight. 10/10: Fio2 down to 60. levophed down to 8. Vital Signs: Temp Pulse Resp BP SpO2 FiO2 99.3 F 96 13 114/58 97 60 10/10/18 08:46 10/10/18 08:46 10/10/18 07:36 10/10/18 08:45 10/10/18 08:46 10/10 04:00 Physical Exam: Gen - intubated and sedated heent - ncat, perrl neck - no jvd, + old neck scar cv - s1/s2, tachy, irregular lungs - +ronchi abd - soft, nt ext - no cce neuro - arousable and follows commands Fluid Balance (Past 24 Hours): I= O= Net Intake & Output 10/08/18 10/09/18 10/10/18 10/11/18 06:59 06:59 06:59 06:59 Intake Total 6770 438 3993.9 Output Total 600 1300 2122 Balance 768 -835 2809.9 Weight 70 kg 72.1 kg Intake: IV Fluids 70 261 1382.4 ABX - CEFTRIAXONE 55 Mag 2 gm 110 NS (0.9%) 57 1080 NSS 15 204 192.4 IVPB 356 NSS 356 Medicated IV 204 1774.5 CC - Norepinephrine/ 1578 Levophed CC - Propofol/Diprivan 204 196.5 Oral 0 0 0 Tube Feeding 908 1089 Tube Feeding Flush Amount 390 330 Output: Urine 600 675 [place] 625 2122 Other: # Bowel Movements 0 # Voids 2 Labs: Laboratory Results - last 24 hr 12/10/09/18 10/10/18 11:38 18:17 00:31 WBC RBC Hgb Hct MCV MCH MCHC RDW Plt Count MPV Neut % (Auto) Lymph % (Auto) [place] % (Auto) Eos % (Auto) Baso % (Auto) Absolute Neuts (auto) Absolute Lymphs (auto) Absolute Monos (auto) Absolute Eos (auto) Absolute Basos (auto) Absolute Nucleated RBC Nucleated RBC % Sodium Potassium Chloride Carbon Dioxide Anion Gap BUN Creatinine Est GFR ( Amer) Est GFR (Non-Af Amer) BUN/Creatinine Ratio Glucose POC Glucose (mg/dL) 198 H 157 H 152 H Calcium Magnesium Vancomycin Trough 10/10/18 10/10/18 10/10/18 04:52 04:52 06:11 WBC 12.1 H RBC 3.82 L Hgb 11.1 L Hct 34 L MCV 89 MCH 29 MCHC 33 RDW 15 Plt Count 468 H D MPV 7.2 L Neut % (Auto) 75.5 Lymph % (Auto) 10.9 [place] % (Auto) 9.8 Eos % (Auto) 1.7 Baso % (Auto) 2.1 Absolute Neuts (auto) 9.1 H Absolute Lymphs (auto) 1.3 Absolute Monos (auto) 1.2 H Absolute Eos (auto) 0.2 Absolute Basos (auto) 0.3 H Absolute Nucleated RBC 0 Nucleated RBC % 0 Sodium 138 Potassium 3.8 Chloride 103 Carbon Dioxide 31 Anion Gap 4 BUN 18 Creatinine 0.81 Est GFR ( Amer) 114.7 Est GFR (Non-Af Amer) 94.8 BUN/Creatinine Ratio 22.2 H Glucose 159 H POC Glucose (mg/dL) Calcium 8.1 L Magnesium 1.8 L Vancomycin Trough 17.1 10/10/18 06:11 WBC RBC Hgb Hct MCV MCH MCHC RDW Plt Count MPV Neut % (Auto) Lymph % (Auto) [place] % (Auto) Eos % (Auto) Baso % (Auto) Absolute Neuts (auto) Absolute Lymphs (auto) Absolute Monos (auto) Absolute Eos (auto) Absolute Basos (auto) Absolute Nucleated RBC Nucleated RBC % Sodium Potassium Chloride Carbon Dioxide Anion Gap BUN Creatinine Est GFR ( Amer) Est GFR (Non-Af Amer) BUN/Creatinine Ratio Glucose POC Glucose (mg/dL) 160 H Calcium Magnesium Vancomycin Trough Studies: CXR 10/04 IMPRESSION: Density obscuring the bilateral lung bases worse on the right and the left could be due to pleural effusion and/or consolidation. Overall the degree of aeration has deteriorated since the most recent October 03, 2018 chest x-ray. CT head 10/04 IMPRESSION: No acute intracranial pathology. CT c spine 10/04 IMPRESSION: 1. No acute cervical spine fracture. 2. Other chronic findings, as above. CXR 10/08 IMPRESSION: 1. LINES AND TUBES ABOVE. 2. LOW LUNG VOLUMES. 3. BILATERAL PLEURAL EFFUSIONS. 4. NO APPRECIABLE PNEUMOTHORAX. Impression: 68M with htn, hypothyroid presented for septic shock and respiratory failure 2/ 2 strep pneumo pneumonia and bacteremia. Chronically aspirating. Intubated for 3rd time yesterday. Atrial fibrillation (Acute) I48.91 COPD (chronic obstructive pulmonary disease) (Acute) J44.9 Cardiomyopathy (Acute) I42.9 Pneumococcal bacteremia (Acute) R78.81 Pneumococcal pneumonia (Acute) J13 Respiratory failure (Acute) J96.90 Sepsis (Acute) Shock (Acute) R57.9 Swallowing dysfunction (Acute) Tobacco abuse (Acute) Z72.0 Plan: Neuro - pain control CV - shock, afib, reduced ef 1) Shock - sepsis vs 2/2 sedation - on levophed for bp support 2.) CHF - tte with reduced ef - bblocker, acei held for hypotension 3) afib - on lovenox bid - hr better with lower levophed dose pulm - hypoxic respiratory failure - 2/2 pna/pleural effusions/chronic aspiration - s/p bronchoscopy - copious secretions - duoneb q4 standing - chest pt - wean vent as tolerated id - septic shock, strep bacteremia, hcap - wbc increased today - switched to vanc/zosyn for hcap - f/u cultures gi - chronic aspiration - c/w tube feeds - will eventually need PEG renal - monitor bmp - replete lytes heme - monitor cbc endo - hypothyroid - c/w synthroid lines - piv ppx - gi/dvt full code Critical Care Time: 50 mins
[2018-10-10] MEDS ORDERED: Metoprolol Tartrate IV* 1 MG/ML 5 ML VIAL IV ONE (10:10)
[2018-10-10] MEDS: Potassium Chloride LIQUID* 20 MEQ PACKET PO SCH (10:19)
[2018-10-10] MEDS: Enoxaparin(*) 80 MG/0.8 ML SYR SUBCUT SCH ×2 (10:19→20:45)
[2018-10-10] MEDS: Famotidine TAB* 20 MG PO SCH (10:19)
[2018-10-10] MEDS: fentaNYL INFUSION 50 MCG/ML* 2,500 MCG/50 ML BAG IV SCH (11:56)
[2018-10-11] MEDS: Vancomycin(*) 1,000 MG in NS 0.9% 250 ML* 250 ML IVPB SCH ×2 (00:31→08:35)
[2018-10-11] MEDS: CHLORHEXADINE (PERIDEX) VENT ORAL CARE TOPICAL SCH ×6 (00:31→21:20)
[2018-10-11] MEDS: Insulin LISPRO* 1 UNITS UNIT SUBCUT SCH ×5 (00:34→18:23)
[2018-10-11] MEDS: Propofol* 1000 MG (10 MG/ML 100 ml) @ Per Protocol (in ICU Pyxis) IV SCH ×2 (00:41→06:04)
[2018-10-11] MEDS: ZOSYN 3.375 GM Q8H per EXTENDED INFUSION IVPB SCH ×6 (04:37→21:20)
[2018-10-11] MEDS: Norepinephrine VIAL* 4 MG in NS 0.9% 250 ML* 246 ML IV SCH ×3 (04:37→15:21)
[2018-10-11 05:34] LABS: ABS Basophils 0.2 10^3/ul (0-0.2); ABS Eosinophils 0.3 10^3/ul (0-0.6); ABS Lymphocytes 1.2 10^3/ul (1.0-4.8); ABS Monocytes 1.1 10^3/ul (0-0.8); ABS Neutrophils 8.7 10^3/ul (1.5-7.7); ABS Nucleated RBC 0 10^3/ul; Eosinophil % 2.6 %; Hematocrit 27 % (42-52); Hemoglobin 8.7 g/dl (14.0-18.0); Lymphocyte % 10.2 %; Mean Corpuscular HGB Conc 33 g/dl (31-36); Mean Corpuscular Hemoglobin 29 pg (27-31); Mean Corpuscular Volume 89 fL (80-94); Mean Platelet Volume 7.3 fL (7.4-10.4); Nucleated Red Blood Cells % 0.1; Platelet Count 500 10^3/ul (150-450); Red Cell Distribution Width 15 % (10.5-15); White Blood Count 11.5 10^3/ul (3.5-10.8)
[2018-10-11 05:52] LABS: BUN/Creatinine Ratio 21.8 (8-20); Calcium 7.5 mg/dL (8.6-10.3); Magnesium 1.6 mg/dL (1.9-2.7)
[2018-10-11] MEDS: Levothyroxine TAB* 75 MCG TAB PO SCH (06:03)
[2018-10-11] MEDS: Albuterol/Ipratropium NEB.SOL* Albuterol 2.5 MG/Ipratropium 0.5 MG 3 ML INH SCH ×3 (06:55→11:15)
[2018-10-11] MEDS: Enoxaparin(*) 80 MG/0.8 ML SYR SUBCUT SCH (08:35)
[2018-10-11] MEDS: Potassium Chloride LIQUID* 20 MEQ PACKET PO SCH (08:35)
[2018-10-11] MEDS: Famotidine TAB* 20 MG PO SCH (08:35)
[2018-10-11] MEDS ORDERED: LR IV ONE (11:00)
[2018-10-11] MEDS ORDERED: Albuterol 2.5 MG/3 ML NEB.SOL* (0.083%) INH PRN (11:13)
[2018-10-11 12:26] LABS: Hematocrit 22 % (42-52); Hemoglobin 7.1 g/dl (14.0-18.0); Mean Corpuscular HGB Conc 33 g/dl (31-36); Mean Corpuscular Hemoglobin 29 pg (27-31); Mean Corpuscular Volume 89 fL (80-94); Mean Platelet Volume 7.5 fL (7.4-10.4); Platelet Count 530 10^3/ul (150-450); Red Blood Count 2.43 10^6/ul (4.00-5.40); Red Cell Distribution Width 15 % (10.5-15); White Blood Count 16.5 10^3/ul (3.5-10.8)
[2018-10-11 12:51] LABS: ABS Basophils 0.2 10^3/ul (0-0.2); ABS Eosinophils 0.2 10^3/ul (0-0.6); ABS Lymphocytes 0.9 10^3/ul (1.0-4.8); ABS Monocytes 1.2 10^3/ul (0-0.8); ABS Nucleated RBC 0 10^3/ul; Lymphocyte % 5.3 %; Nucleated Red Blood Cells % 0
[2018-10-11] MEDS ORDERED: Lactated Ringers 1000 ML Bag* 1,000 ML IV SCH ×2 (13:00→23:00)
[2018-10-11] MEDS: Hydrocortisone INJ* 100 MG VIAL IV SCH ×2 (14:57→22:52)
[2018-10-11] MEDS ORDERED: Albumin Human 5%* 12.5 GM/250 ML BTL IV ONE (14:58)
[2018-10-11] MEDS ORDERED: Lactated Ringers 1000 ML Bag* 1,000 ML IV ONE (16:14)
--- NOTE | 2018-10-11 16:15 | ECHO ---
Patient: AVANI GIPSON [facility] Rec#: [id number] : 1950 Date: 10/11/2018 Age: 68y Height: 178 cm / 70.1 in Weight: 71.3 kg / 157.1 lbs Sex: M BSA: 1.89 Room#: ICU 6 Admit Date#: 09/26/2018 Type: Inpatient Referring: Sebastien Lynn MD Reading: Keanu Paz MD Jr. Systems Administrator: Chana Mari RN RDCS CC: Tavon Walker MD Transthoracic Echocardiogram Indication: Hypotension, possible pulmonary embolism BP: 83/54 HR: 112 Rhythm: Tachycardia Findings History: HTN, hypothyroidism, admitted with septic shock, respiratory failure, and bacteremia, currently with hypotension on Levophed and on mechanical ventilation. Technical Comments: The study quality is fair. The study is technically limited due to patient being intubated and on a ventilator. Left Ventricle: The left ventricular chamber size is decreased. There is no left ventricular hypertrophy. Global left ventricular wall motion and contractility are within normal limits. There is normal left ventricular systolic function. The estimated ejection fraction is 55-60%. LV chamber is somewhat small and under filled The assessment of diastolic function is non-diagnostic. Left Atrium: The left atrial chamber size is normal. Right Ventricle: The right ventricular cavity size is normal. The right ventricular global systolic function is normal. Right Atrium: The right atrium is not well visualized. The right atrial cavity size is abnormally small. Aortic Valve: The aortic valve is trileaflet. The aortic valve leaflets are mildly thickened. There is no evidence of aortic regurgitation. There is no evidence of aortic stenosis. Mitral Valve: The mitral valve leaflets are mildly thickened. There is mild to moderate mitral regurgitation. There is no evidence of mitral stenosis. Tricuspid Valve: The tricuspid valve leaflets are mildly thickened.Mass on trisuspid valve vs just thickening Can not rule out vegetation on the tricuspid leaflet There is mild to moderate tricuspid regurgitation. There is evidence of mild pulmonary hypertension. Pulmonic Valve: The pulmonic valve structure is not well visualized. Pericardium: There is a moderate pericardial effusion. The pericardial effusion is seen adjacent to the right ventricle. A left pleural effusion is present. Aorta: The ascending aorta is not well visualized. The aortic arch is not well visualized. There is no dilation of the aortic root. Pulmonary Artery: The main pulmonary artery is not well visualized. Venous: Unable to accurately comment on the size collapsibility of the IVC as the patient in known to be on mechanical ventilation. Conclusions Global left ventricular wall motion and contractility are within normal limits. There is normal left ventricular systolic function. The estimated ejection fraction is 55-60%. LV chamber is somewhat small and under filled The right ventricular global systolic function is normal. The aortic valve leaflets are mildly thickened. There is no evidence of aortic stenosis. There is mild to moderate mitral regurgitation. The tricuspid valve leaflets are mildly thickened.Mass on trisuspid valve vs just thickening Can not rule out vegetation on the tricuspid leaflet There is mild to moderate tricuspid regurgitation. There is a moderate pericardial effusion. The pericardial effusion is seen adjacent to the right ventricle. No obvious hemodynamic compromise A left pleural effusion is present. The ascending aorta is not well visualized. Compared to study of 09/27/18, the LV function look improved. THe pericardial effusion and the Tricuspid thickening (possible mass) are new Measurements Name Value Normal Range RVDdMajor (2D) 2.9 cm (2.2 - 4.4) RAd ISD 4CH 3.1 cm (3.4 - 4.9) RA (A4C)W 2.6 cm (2.9 - 4.6) IVSd (2D) 1 cm (0.6 - 1) LVPWd (2D) 0.9 cm (0.6 - 1) LVIDd (2D) 2.8 cm (3.6 - 5.4) LVIDs (2D) 2 cm - LV FS (2D) 29 % (25 - 45) Aortic Annulus 1.9 cm (1.4 - 2.6) Ao root diameter (2D) 3.1 cm (2.1 - 3.5) LA dimension (AP) 2D 3.7 cm (2.3 - 3.8) LAd ISD 4CH 3.7 cm (2.9 - 5.3) LA ISD 4CH W 3.9 cm (2.5 - 4.5) Name Value Normal Range LA ESV BP (A/L) index 18.3 ml/m2 - Name Value Normal Range MV E-wave Vmax 0.61 m/sec - MV deceleration time 232 msec - MV A-wave Vmax 0.39 m/sec - MV E:A ratio 1.6 ratio - LV septal e' Vmax 0.06 m/sec - LV lateral e' Vmax 0.07 m/sec - LV E:e' septal ratio 10.2 ratio - LV E:e' lateral ratio 8.7 ratio - Name Value Normal Range AV Vmax 1.4 m/sec - AV VTI 19.5 cm - AV peak gradient 8 mmHg - AV mean gradient 5 mmHg - LVOT Vmax 0.89 m/sec - LVOT VTI 13.1 cm - LVOT peak gradient 3 mmHg - LVOT mean gradient 2 mmHg - Name Value Normal Range TR Vmax 2.7 m/sec - TR peak gradient 29 mmHg - RAP 8 mmHg - RVSP 37 mmHg - IVC diameter 1.4 cm -
--- NOTE | 2018-10-11 16:42 | PN ---
Date of Service: 10/11/18 Critical Care Services: Major problem today is hypotension requiring high-dose levophed and and drop in hemoglobin of 4 g/dL without any evidence of bleeding. Patient remains on ventilator. Vital Signs: Temp Pulse Resp BP SpO2 FiO2 100.0 F 100 12 77/48 95 45 Physical Exam: Gen:Somnolent but arousable HEENT:Intubated Lungs:Clear Extremities:No cyaosis or edema. No discoloration in thighs. Fluid Balance (Past 24 Hours): 10/10/18 10/11/18 06:59 06:59 Intake Total 4931.9 4367.6 Output Total 2122 2840 Balance 2809.9 1527.6 Weight 158 lb 157 lb Intake: IV Fluids 1382.4 717 Mag 2 gm 110 NS (0.9%) 1080 336 NSS 192.4 381 IVPB 356 812 NSS 356 812 Medicated IV 1774.5 980.6 CC - Norepinephrine/ 1578 761 Levophed CC - Propofol/Diprivan 196.5 219.6 Oral 0 0 Tube Feeding 1089 1428 Tube Feeding Flush Amount 330 430 Output: Urine [place] 2122 2840 Suctioning Other: # Bowel Movements 0 0 Labs: Laboratory Results - last 24 hr 10/10/18 10/11/18 10/11/18 17:49 00:33 05:22 WBC RBC Hgb Hct MCV MCH MCHC RDW Plt Count MPV Neut % (Auto) Lymph % (Auto) [place] % (Auto) Eos % (Auto) Baso % (Auto) Absolute Neuts (auto) Absolute Lymphs (auto) Absolute Monos (auto) Absolute Eos (auto) Absolute Basos (auto) Absolute Nucleated RBC Nucleated RBC % Sodium 138 Potassium 4.0 Chloride 104 Carbon Dioxide 32 Anion Gap 2 BUN 17 Creatinine 0.78 Est GFR ( Amer) 119.8 Est GFR (Non-Af Amer) 99.0 BUN/Creatinine Ratio 21.8 H Glucose 144 H POC Glucose (mg/dL) 148 H 135 H Calcium 7.5 L Magnesium 1.6 L Blood Type Antibody Screen Crossmatch 10/11/18 10/11/18 10/11/18 05:22 05:23 12:05 WBC 11.5 H 16.5 H RBC 3.00 L 2.43 L Hgb 8.7 L 7.1 L Hct 27 L 22 L MCV 89 89 MCH 29 29 MCHC 33 33 RDW 15 15 Plt Count 500 H 530 H MPV 7.3 L 7.5 Neut % (Auto) 75.5 85.1 Lymph % (Auto) 10.2 5.3 [place] % (Auto) 9.9 7.1 Eos % (Auto) 2.6 1.0 Baso % (Auto) 1.8 1.5 Absolute Neuts (auto) 8.7 H 14.0 H Absolute Lymphs (auto) 1.2 0.9 L Absolute Monos (auto) 1.1 H 1.2 H Absolute Eos (auto) 0.3 0.2 Absolute Basos (auto) 0.2 0.2 Absolute Nucleated RBC 0 0 Nucleated RBC % 0.1 0 Sodium Potassium Chloride Carbon Dioxide Anion Gap BUN Creatinine Est GFR ( Amer) Est GFR (Non-Af Amer) BUN/Creatinine Ratio Glucose POC Glucose (mg/dL) 153 H Calcium Magnesium Blood Type Antibody Screen Crossmatch 10/11/18 10/11/18 12:05 12:24 WBC RBC Hgb Hct MCV MCH MCHC RDW Plt Count MPV Neut % (Auto) Lymph % (Auto) [place] % (Auto) Eos % (Auto) Baso % (Auto) Absolute Neuts (auto) Absolute Lymphs (auto) Absolute Monos (auto) Absolute Eos (auto) Absolute Basos (auto) Absolute Nucleated RBC Nucleated RBC % Sodium Potassium Chloride Carbon Dioxide Anion Gap BUN Creatinine Est GFR ( Amer) Est GFR (Non-Af Amer) BUN/Creatinine Ratio Glucose POC Glucose (mg/dL) 169 H Calcium Magnesium Blood Type A Positive Antibody Screen Negative Crossmatch See Detail Studies: Cardiac ECHO No evidence of RV or LV dysfunction. Patient does have a small pericardial effusion but no evidence of tamponade. Nutrition: Tube feedings Impression: Refractory hypotension with drop in hematocrit - no evidence of bleeding. Doubt (but cannot r/o) massive hemolysis. Plan: 1. Transfuse one unit PRBC 2. Volume load with albumin and lactated Ringers 3. Empiric IV steroids 4. Monitor H/H 5. Taper vasopressor RX when tolerated. Prognossis very guarded at this time. Patient's has been called. Critical Care Time: 60 minutes
[2018-10-11] MEDS ORDERED: Norepinephrine VIAL* 1 MG/ML 4 ML VIAL ONE (17:53)
[2018-10-11] MEDS: Norepinephrine VIAL* 8 MG in NS 0.9% 500 ML* 492 ML IV SCH ×2 (17:55→20:21)
[2018-10-11] MEDS ORDERED: Lidocaine 2% PF * 5 ML VIAL ONE (17:59)
[2018-10-11] MEDS ORDERED: Lidocain 1% EPI 1:100,000 * 30 ML MDV ONE (18:29)
[2018-10-11] MEDS ORDERED: Morphine VIAL* 4 MG/ML VIAL (1 ml vial) ONE (18:34)
--- NOTE | 2018-10-11 19:19 | PN ---
Progress Note - Progress Note Date of Service: 10/11/18 Note: CXR this afternoon shows a very large right-sided pleural effusion - needle aspiration showed bllody fluid, and tube thoracostomy performed by Dr. Bateman with early return of grossly blood fluid. Dx: Right-sided hemothorax, which exolains the drop in hemoglobin and the hypotension.
[2018-10-11] MEDS ORDERED: Morphine VIAL* 4 MG/ML VIAL (1 ml vial) IV ONE (19:30)
[2018-10-11] MEDS ORDERED: PROTAMINE SULFATE 10 MG/ML IV ONE (19:41)
[2018-10-11] MEDS ORDERED: NS 0.9% IV ONE ×2 (20:00→20:03)
[2018-10-11] MEDS ORDERED: PROTAMINE SULFATE IV ONE ×2 (20:00→20:03)
[2018-10-11] MEDS ORDERED: Propofol* 100 ML IV SCH (21:00)
[2018-10-11] MEDS ORDERED: NS 0.9% 500 ML* @ Wide Open(Bolus) 500ml IV ONE (22:00)
[2018-10-11 23:16] LABS: Hematocrit 28 % (42-52); Hemoglobin 9.2 g/dl (14.0-18.0)
[2018-10-12] MEDS: Lactated Ringers 1000 ML Bag* 1,000 ML IV SCH ×3 (00:05→22:40)
[2018-10-12] MEDS: Insulin LISPRO* 1 UNITS UNIT SUBCUT SCH ×4 (00:19→18:10)
[2018-10-12] MEDS: CHLORHEXADINE (PERIDEX) VENT ORAL CARE TOPICAL SCH ×6 (00:20→19:33)
--- NOTE | 2018-10-12 00:50 | OP ---
DATE OF OPERATION: 10/11/18 - ROOM #ICU-06 DATE OF : 50 SURGEON: Spencer Bateman MD ANESTHESIA: 1% lidocaine with epinephrine as well as 8 mg of IV morphine. PRE-OP DIAGNOSIS: Right hemothorax. POST-OP DIAGNOSES: Pleural effusion and right hemothorax. OPERATIVE PROCEDURE: Insertion of a right chest #32-[place] tube thoracostomy. BRIEF HISTORY: Mr. Sergei Horn is a 68-year-old gentleman on the intensive care unit service, who has pneumonia and was noted to have a drop in his hemoglobin over the past 24 hours. He is on therapeutic Lovenox and Dr. Lynn , the dining room attendant cafeteria caring for him, performed a thoracentesis and noted bloody fluid on return. The patient has been hypotensive, requiring pressors, and received one unit of packed red blood cells, and there are no other signs of hemorrhage, and Dr. Lynn has requested a large bore chest tube be placed in the right chest. After a complete review of the chart, the procedure was discussed with the patient's family, who gave their consent. The patient is unable to give consent due to the fact he is on the ventilator and being sedated. The risks of , but not limited to, bleeding, infection, cardiopulmonary injury, discomfort, were all explained. ESTIMATED BLOOD LOSS: Minimal. COMPLICATIONS: None. SPECIMENS: None. DRAINS: 32-[place] tube. DESCRIPTION OF PROCEDURE: Written informed consent was obtained, the patient was placed in the slightly sitting upright position. The right chest was marked with an indelible ink and the right chest was prepped and draped in the usual sterile fashion. Time-out verification was completed. 1% lidocaine was infiltrated along the lateral anterior chest wall below the pectoralis muscle and an oblique incision was made and carried down to the anterior rib surface. Using a blunt Tabatha over the superior surface of the rib, I entered the pulmonary space. Initially, there was not a large amount of fluid, however, placing my index finger into the thoracic cavity, it felt that there appear to be clotted blood which was loculated, and I was able to digitally break this up quite well and thus proceeded with the large amount of sanguineous, but rather thin fluid. I next placed the 32-[place] tube and directed it superiorly and posteriorly and drained approximately 1500 cc of fluid, but this was not neto blood, but was dark bloody fluid. The catheter was then secured to the skin with 2 separate 0 Prolene sutures. Vaseline gauze was used to secure air tight seal and the tube was covered with dry gauze as well as foam tape. The tube was placed to suction. Postprocedural chest x-ray showed the tube to be in good position with significant decrease in the amount of fluid in the right chest. The patient tolerated the procedure well. [id number]/[facility] #: [id number] LAILA
[2018-10-12] MEDS ORDERED: Albumin Human 5%* 12.5 GM/250 ML BTL IV ONE ×2 (01:14→01:30)
[2018-10-12] MEDS ORDERED: LACTATED RINGERS IV ONE (02:00)
[2018-10-12] MEDS ORDERED: Vasopressin* 100 UNITS in D5W 250 ML BAG IVPB SCH (03:15)
[2018-10-12 03:43] LABS: Hematocrit 17 % (42-52); Hemoglobin 5.4 g/dl (14.0-18.0); Mean Corpuscular HGB Conc 31 g/dl (31-36); Mean Corpuscular Hemoglobin 29 pg (27-31); Mean Corpuscular Volume 94 fL (80-94); Mean Platelet Volume 8.3 fL (7.4-10.4); Platelet Count 278 10^3/ul (150-450); Red Blood Count 1.83 10^6/ul (4.00-5.40); Red Cell Distribution Width 16 % (10.5-15)
[2018-10-12 04:13] LABS: BUN/Creatinine Ratio 16.7 (8-20); EGFR Non-African American 33.8 (>60)
[2018-10-12 04:15] LABS: Potassium 7.2 mmol/L (3.5-5.0)
[2018-10-12] MEDS ORDERED: Insulin REGULAR(*) 1 UNITS UNIT IV PUSH ONE (04:16)
[2018-10-12] MEDS ORDERED: Dextrose 50% Syringe 50 ML* 25 GM/50 ML SYRINGE IV PUSH ONE (04:17)
[2018-10-12] MEDS ORDERED: Calcium Gluconate INJ* 2 GM in NS 0.9% 100 ML* 100 ML IV ONE (04:19)
[2018-10-12] MEDS ORDERED: Calcium CHLORIDE 10% SYRINGE* 1 GM/10 ML IV ONE (04:21)
[2018-10-12] MEDS: fentaNYL* 50 MCG/ML 2 ML VIAL (100 MCG VIAL) IV PRN ×4 (04:53→07:30)
[2018-10-12] MEDS ORDERED: NS 0.9% IV ONE ×2 (05:00)
[2018-10-12] MEDS ORDERED: Calcium CHLORIDE 1 GM in D5W* (approx = 2.92 gm of Calcium Gluc) IV ONE (05:00)
[2018-10-12] MEDS ORDERED: PROTAMINE SULFATE IV ONE ×2 (05:00)
[2018-10-12] MEDS: Norepinephrine VIAL* 8 MG in NS 0.9% 500 ML* 492 ML IV SCH ×6 (05:04→22:08)
--- NOTE | 2018-10-12 05:13 | PN ---
Progress Note - Progress Note Date of Service: 10/12/18 Note: Asked to review CXR ordered for AM Shows increasing opacification of right lung c/w worsening hemopneumothorax Has received 4 unit PRBC with declining H/H Care discussed with consulting software engineer halftone operator who has already ordered additional FFP and blood. Lovenox has been reversed with protamine. Additional protamine ordered Hyperkalemia - given calcium chloride, kayexalate and glucose in setting of NSVT Checking PT/PTT INR after FFP then [address] Lynn to consider cryoprecipitate Strapping Machine Operator has discussed case with surgery and there is no plan for OR at this time 2/2 critical illness and unstable condition on max levophed and vasopresin and sister arrived at bedside and I updated them with changes since they left yesterday At this point they would not like to deliver CPR if patient suffers cardiac arrest. Code status updated to DNR at their request.
[2018-10-12 07:14] LABS: BUN/Creatinine Ratio 17.9 (8-20); Calcium 7.6 mg/dL (8.6-10.3); EGFR Non-African American 33.2 (>60)
[2018-10-12 07:18] LABS: Potassium 6.5 mmol/L (3.5-5.0)
[2018-10-12] MEDS: ZOSYN 3.375 GM Q8H per EXTENDED INFUSION IVPB SCH ×6 (07:20→20:42)
[2018-10-12] MEDS ORDERED: Lidocain 1% EPI 1:100,000 * 30 ML MDV ONE ×2 (07:30→08:23)
[2018-10-12] MEDS: Levothyroxine TAB* 75 MCG TAB PO SCH (07:37)
[2018-10-12] MEDS: Hydrocortisone INJ* 100 MG VIAL IV SCH ×3 (07:37→23:08)
[2018-10-12] MEDS: Famotidine TAB* 20 MG PO SCH (07:38)
[2018-10-12] MEDS ORDERED: fentaNYL* 50 MCG/ML 2 ML VIAL (100 MCG VIAL) ONE ×3 (08:07→15:11)
[2018-10-12] MEDS ORDERED: Vancomycin Trough Check NOTE FOLLOW UP ONE (08:30)
[2018-10-12] MEDS ORDERED: fentaNYL* 50 MCG/ML 5 ML VIAL (250 MCG VIAL) ONE (08:38)
[2018-10-12] MEDS: Potassium Chloride LIQUID* 20 MEQ PACKET PO SCH (08:41)
[2018-10-12 08:54] LABS: INR 1.59 (0.77-1.02)
[2018-10-12 08:54] LABS: Hematocrit 25 % (42-52); Mean Corpuscular HGB Conc 32 g/dl (31-36); Mean Corpuscular Hemoglobin 29 pg (27-31); Mean Corpuscular Volume 91 fL (80-94); Mean Platelet Volume 8.5 fL (7.4-10.4); Platelet Count 153 10^3/ul (150-450); Red Blood Count 2.74 10^6/ul (4.00-5.40); Red Cell Distribution Width 15 % (10.5-15)
[2018-10-12] MEDS ORDERED: fentaNYL* 50 MCG/ML 2 ML VIAL (100 MCG VIAL) IV STA (10:34)
[2018-10-12] MEDS: fentaNYL* 50 MCG/ML 2 ML VIAL (100 MCG VIAL) IV SCH (10:38)
[2018-10-12] MEDS: fentaNYL INFUSION 50 MCG/ML* 2,500 MCG/50 ML BAG IV SCH (10:59)
--- NOTE | 2018-10-12 12:51 | PN ---
Progress Note - Progress Note Date of Service: 10/12/18
[2018-10-12 13:19] LABS: Vancomycin Trough 20.3 mcg/mL
[2018-10-12 13:22] LABS: Hematocrit 20 % (42-52); Hemoglobin 6.7 g/dl (14.0-18.0); Mean Corpuscular HGB Conc 34 g/dl (31-36); Mean Corpuscular Hemoglobin 29 pg (27-31); Mean Corpuscular Volume 87 fL (80-94); Mean Platelet Volume 9.1 fL (7.4-10.4); Platelet Count 176 10^3/ul (150-450); Red Blood Count 2.28 10^6/ul (4.00-5.40); Red Cell Distribution Width 15 % (10.5-15); White Blood Count 20.8 10^3/ul (3.5-10.8)
--- NOTE | 2018-10-12 13:47 | PN ---
Progress Note - Progress Note Date of Service: 10/12/18 Note: Summary of events so far: On 10/08, patient had a right-sided thoracentesis for a parapneumonic effusion. At that time, the effusion was not bloody. On 10/10, patient was started on full-dose lovenox (70 mg q12h) for new-onset AFib. From 10/10 to 10/11, the Hb dropped from 11 to 7, and the patient was placed on levophed for BP control. On 10/11, CXR showed a large right-sided pleural effusion and thoracentesis revealed bloody fluid. A chest tube was subsequently placed, with return of bloody fluid. Patient was given protamine to reverse the lovenox, and transfusion of packed RBCs was started. Patient has subsequently received 8 units PRBC, 4 units of FFP, plus cryoprecipitate. A second vasopressor was also started because of persistent hypotension. On 10/12, a second chest tube was placed (because of reaccumulation of pleural fluid on CXR). Plasma lactate at that time was 14.3, and patient was anuric, with creatinine increasing from 0.8 to 1.8. INR was 1.8. At this time, we are awaiting repeat lactate and INR, PTT. Prognosis is poor at this time. Family present at bedside and are aware of current situation and prognosis.
[2018-10-12 14:15] LABS: Calcium 7.4 mg/dL (8.6-10.3)
[2018-10-12 14:16] LABS: Potassium 6.9 mmol/L (3.5-5.0)
[2018-10-12 14:21] LABS: BUN/Creatinine Ratio 17.7 (8-20); EGFR Non-African American 28.3 (>60)
[2018-10-12] MEDS ORDERED: fentaNYL* 50 MCG/ML 2 ML VIAL (100 MCG VIAL) IV ONE (15:05)
[2018-10-12 16:02] LABS: Hematocrit 18 % (42-52); Hemoglobin 6.1 g/dl (14.0-18.0); Mean Corpuscular HGB Conc 34 g/dl (31-36); Mean Corpuscular Hemoglobin 29 pg (27-31); Mean Corpuscular Volume 87 fL (80-94); Mean Platelet Volume 8.8 fL (7.4-10.4); Platelet Count 144 10^3/ul (150-450); Red Blood Count 2.08 10^6/ul (4.00-5.40); Red Cell Distribution Width 15 % (10.5-15); White Blood Count 18.6 10^3/ul (3.5-10.8)
[2018-10-12 16:05] LABS: INR 1.67 (0.77-1.02)
--- NOTE | 2018-10-12 16:18 | PN ---
Date of Service: 10/12/18 Critical Care Services: Please see summary of events in prior progress note today. Most recent labs show a marked improvement in serum lactate (down from 14 to 5) and an increase in serum HCO3 (from 13 to 19). Accompanying this is a decrease in the required levophed dose (down from 30 to 8 mcg/min) Vital Signs: Temp Pulse Resp BP SpO2 FiO2 98.4 F 91 15 110/50 95 100 Physical Exam: Gen: HEENT: Lungs: Cardiac: Abdomen: Extremities: Neuro: Fluid Balance (Past 24 Hours): 10/10/18 10/11/18 10/12/18 06:59 06:59 06:59 Intake Total 4931.9 4367.6 8520.8 Output Total 2122 2840 440 Balance 2809.9 1527.6 8080.8 Weight 158 lb 157 lb Intake: IV Fluids 1382.4 717 1801 Calcium Chloride 110 LR 593 Mag 2 gm 110 NS (0.9%) 1080 336 877 NSS 192.4 381 171 Protamine 50 abx IVPB 356 812 110 NSS 356 812 abx 110 Medicated IV 1774.5 980.6 2390.8 CC - Norepinephrine/ 7938 079 9135 Levophed CC - Propofol/Diprivan 196.5 219.6 vasopressin 18.8 Oral 0 0 0 Tube Feeding 1089 1428 1355 Tube Feeding Flush Amount 330 430 430 Packed Cells 1488 Fresh Frozen Plasma 946 Output: Chest Tube #1 Rowan 2122 2840 90 Suctioning 350 Other: # Bowel Movements 0 0 0 Labs: Laboratory Results - last 24 hr 10/11/18 10/11/18 10/11/18 12:05 18:10 23:05 WBC RBC Hgb 9.2 L Hct 28 L MCV MCH MCHC RDW Plt Count MPV INR (Anticoag Therapy) Sodium Potassium Chloride Carbon Dioxide Anion Gap BUN Creatinine Est GFR ( Amer) Est GFR (Non-Af Amer) BUN/Creatinine Ratio Glucose POC Glucose (mg/dL) 139 H Lactic Acid Calcium Vancomycin Trough Blood Type A Positive Antibody Screen Negative Crossmatch See Detail 10/12/18 10/12/18 10/12/18 00:13 03:25 03:25 WBC 19.0 H RBC 1.83 L Hgb 5.4 L* Hct 17 L MCV 94 MCH 29 MCHC 31 RDW 16 H Plt Count 278 MPV 8.3 INR (Anticoag Therapy) Sodium 139 Potassium 7.2 H* D Chloride 107 Carbon Dioxide 13 L* Anion Gap 19 H BUN 33 H Creatinine 1.98 H Est GFR ( Amer) 40.9 Est GFR (Non-Af Amer) 33.8 BUN/Creatinine Ratio 16.7 Glucose 97 POC Glucose (mg/dL) 152 H Lactic Acid Calcium 7.0 L Vancomycin Trough Blood Type Antibody Screen Crossmatch 10/12/18 10/12/18 10/12/18 06:00 06:04 07:30 WBC RBC Hgb Hct MCV MCH MCHC RDW Plt Count MPV INR (Anticoag Therapy) 1.59 H Sodium 141 Potassium 6.5 H* Chloride 107 Carbon Dioxide 13 L* Anion Gap 21 H BUN 36 H Creatinine 2.01 H Est GFR ( Amer) 40.2 Est GFR (Non-Af Amer) 33.2 BUN/Creatinine Ratio 17.9 Glucose 220 H POC Glucose (mg/dL) 251 H Lactic Acid Calcium 7.6 L Vancomycin Trough Blood Type Antibody Screen Crossmatch 10/12/18 10/12/18 10/12/18 07:30 08:00 12:35 WBC 14.0 H RBC 2.74 L Hgb 8.0 L Hct 25 L MCV 91 MCH 29 MCHC 32 RDW 15 Plt Count 153 MPV 8.5 INR (Anticoag Therapy) Sodium 142 Potassium 6.9 H* Chloride 108 Carbon Dioxide 19 L Anion Gap 15 H BUN 41 H Creatinine 2.31 H Est GFR ( Amer) 34.2 Est GFR (Non-Af Amer) 28.3 BUN/Creatinine Ratio 17.7 Glucose 171 H POC Glucose (mg/dL) Lactic Acid 14.3 H* Calcium 7.4 L Vancomycin Trough 20.3 Blood Type Antibody Screen Crossmatch 10/12/18 10/12/18 10/12/18 12:35 12:35 15:43 WBC 20.8 H 18.6 H RBC 2.28 L 2.08 L Hgb 6.7 L 6.1 L* Hct 20 L 18 L MCV 87 87 MCH 29 29 MCHC 34 34 RDW 15 15 Plt Count 176 144 L MPV 9.1 8.8 INR (Anticoag Therapy) Sodium Potassium Chloride Carbon Dioxide Anion Gap BUN Creatinine Est GFR ( Amer) Est GFR (Non-Af Amer) BUN/Creatinine Ratio Glucose POC Glucose (mg/dL) Lactic Acid 5.4 H* Calcium Vancomycin Trough Blood Type Antibody Screen Crossmatch 10/12/18 15:43 WBC RBC Hgb Hct MCV MCH MCHC RDW Plt Count MPV INR (Anticoag Therapy) 1.67 H Sodium Potassium Chloride Carbon Dioxide Anion Gap BUN Creatinine Est GFR ( Amer) Est GFR (Non-Af Amer) BUN/Creatinine Ratio Glucose POC Glucose (mg/dL) Lactic Acid Calcium Vancomycin Trough Blood Type Antibody Screen Crossmatch Studies: None today (other than CXRs) Nutrition: NPO Impression: Showing signs of improvement in recent hours!! Plan: 1. RBC transfusion to maintain Hb> 7 g/dL. 2. FFP transfusion to keep INR < 1.5. 3. Platelet infusions PRN to keep platelets > 100k 4. Monitor serum lactate levels. Prognosis guarded at this time. Critical Care Time: 60 minutes
[2018-10-12 16:25] LABS: BUN/Creatinine Ratio 18.1 (8-20); Calcium 7.3 mg/dL (8.6-10.3); EGFR Non-African American 26.1 (>60)
[2018-10-12 16:29] LABS: Potassium 6.9 mmol/L (3.5-5.0)
[2018-10-12] MEDS ORDERED: fentaNYL INFUSION 50 MCG/ML* 2,500 MCG/50 ML BAG IV SCH (18:00)
--- NOTE | 2018-10-12 23:30 | OP ---
DATE OF OPERATION: 10/12/18 - ROOM #ICU-06 DATE OF : 50 SURGEON: Spencer Bateman MD ANESTHESIA: 1% lidocaine with epinephrine and 100 mcg of IV fentanyl per the behavioral health counselor, Dr. Lynn. PRE-OP DIAGNOSIS: Right hemothorax. POST-OP DIAGNOSIS: Right hemothorax. OPERATIVE PROCEDURE: Insertion of #36 Stateless right posterior chest tube. ESTIMATED BLOOD LOSS: Minimal. SPECIMEN: None. COMPLICATIONS: None. BRIEF HISTORY: Mr. Sergei Horn is a 68-year-old gentleman presently in the intensive care unit on the ventilator, who had a right-sided chest tube placed last evening for an apparent hemothorax present of unknown etiology. Overnight, he seems to have bled more from the chest tube and the chest x-rays shows increasing fluid accumulation in the right chest. He has received several units of packed red blood cells and at this time after discussion with Dr. Lynn, the behavioral health counselor taking care of the patient, we are planning to place a second larger chest tube in the more posterior right chest cavity to attempt to achieve more adequate drainage. The procedure was discussed with the patient's who gives consent. The risks of, but not limited to bleeding, infection, cardiopulmonary injury, discomfort and catheter and tube malfunction were all explained. DESCRIPTION OF PROCEDURE: Written informed consent was obtained. The right chest was marked with indelible ink. The patient was already on IV antibiotics. The patient was placed with the right side elevated slightly to expose the right lateral chest wall. This area was prepped and draped in usual sterile fashion. Time-out verification was completed. 1% lidocaine plain was infiltrated in the area over approximately the 8th to 9th inner rib and a transverse incision was made down to the rib surface. Using a blunt Tabatha, the pleural space was entered over the superior surface of the rib and there was some moderate of bloody fluid, which was drained. Upon placing my index finger into the crural space, there once again was what appeared to be a clot. I did attempt to use a sterile Yankauer suction to try to suction some of this, but only a small amount of clot was extracted. A #36 Stateless chest tube was then placed as far posteriorly as possible to about 18 cm. It was sutured to the skin with two separate 3-0 Prolene sutures. An occlusive Vaseline gauze dressing was placed and the catheter was placed to 20 cm of water suction with the Pleur-evac. Postprocedure chest x-ray showed the catheter to be in good position. The patient tolerated the procedure well. [id number]/[facility] #: [id number] MTDOlimpia
[2018-10-13 00:04] LABS: Hematocrit 16 % (42-52); Hemoglobin 5.5 g/dl (14.0-18.0)
--- NOTE | 2018-10-13 00:14 | PN ---
Progress Note - Progress Note Date of Service: 10/13/18 Note: Patient tachycardic, repeat H/H done showed a drop. Will order another 2 units PRBCs
[2018-10-13] MEDS: CHLORHEXADINE (PERIDEX) VENT ORAL CARE TOPICAL SCH ×6 (01:08→20:54)
[2018-10-13] MEDS: Insulin LISPRO* 1 UNITS UNIT SUBCUT SCH ×4 (01:08→17:21)
[2018-10-13] MEDS: Norepinephrine VIAL* 8 MG in NS 0.9% 500 ML* 492 ML IV SCH ×6 (02:21→21:13)
[2018-10-13] MEDS: ZOSYN 3.375 GM Q8H per EXTENDED INFUSION IVPB SCH ×6 (04:24→20:54)
[2018-10-13] MEDS: Lactated Ringers 1000 ML Bag* 1,000 ML IV SCH ×2 (05:39→12:04)
[2018-10-13 05:41] LABS: INR 1.51 (0.77-1.02)
[2018-10-13] MEDS: fentaNYL* 50 MCG/ML 2 ML VIAL (100 MCG VIAL) IV PRN (05:47)
[2018-10-13 05:57] LABS: Albumin 1.8 g/dL (3.2-5.2); Albumin/Globulin Ratio 1.1 (1-3); BUN/Creatinine Ratio 18.3 (8-20); Calcium 6.5 mg/dL (8.6-10.3); EGFR Non-African American 21.7 (>60); Globulin 1.7 g/dL (2-4); Total Bilirubin 1.9 mg/dL (0.2-1.0); Total Protein 3.5 g/dL (6.4-8.9)
[2018-10-13 06:02] LABS: Potassium 6.6 mmol/L (3.5-5.0)
[2018-10-13] MEDS: Levothyroxine TAB* 75 MCG TAB PO SCH (06:22)
[2018-10-13] MEDS: Hydrocortisone INJ* 100 MG VIAL IV SCH ×3 (06:22→21:58)
[2018-10-13 08:41] LABS: Hematocrit 25 % (42-52); Hemoglobin 8.4 g/dl (14.0-18.0); Mean Corpuscular HGB Conc 34 g/dl (31-36); Mean Corpuscular Hemoglobin 30 pg (27-31); Mean Corpuscular Volume 89 fL (80-94); Mean Platelet Volume 9.3 fL (7.4-10.4); Platelet Count 168 10^3/ul (150-450); Red Blood Count 2.82 10^6/ul (4.00-5.40); Red Cell Distribution Width 15 % (10.5-15); White Blood Count 23.3 10^3/ul (3.5-10.8)
[2018-10-13] MEDS: Famotidine TAB* 20 MG PO SCH (09:05)
[2018-10-13] MEDS: Potassium Chloride LIQUID* 20 MEQ PACKET PO SCH (09:05)
[2018-10-13] MEDS: fentaNYL INFUSION 50 MCG/ML* 2,500 MCG/50 ML BAG IV SCH (10:17)
--- NOTE | 2018-10-13 11:23 | PN ---
Progress Note - Progress Note Date of Service: 10/13/18 SOAP: Subjective: Remains stable on ventilator Still requiring PRBC transfusions for dropping H/H Off vasopression, levophed at lower levels Remains anuric Objective: Temp Pulse Resp BP Pulse Ox 97.9 F 77 14 99/60 98 10/13/18 10:08 10/13/18 10:08 10/13/18 10:17 10/13/18 10:08 10/13/18 10:08 Intake & Output 10/11/18 10/12/18 10/13/18 10/14/18 06:59 06:59 06:59 06:59 Intake Total 4367.6 8520.8 5285.0 Output Total 2840 440 3461 783 Balance 1527.6 8080.8 1824.0 -783 Weight 157 lb 3.033 oz 184 lb 1.376 oz Intake: IV Fluids 717 1801 3411 Calcium Chloride 110 LR 593 2444 NS (0.9%) 336 877 136 NSS 381 171 PRBCs 691 Protamine 50 abx 140 IVPB 812 110 197 ABX - ZOSYN 197 NSS 812 abx 110 Medicated IV 980.6 2390.8 1677.0 CC - Norepinephrine/ 761 2372 1603 Levophed CC - Propofol/Diprivan 219.6 fentanyl 9.3 vasopressin 18.8 64.7 Oral 0 0 0 Tube Feeding 1428 1355 Tube Feeding Flush Amount 430 430 Packed Cells 1488 Fresh Frozen Plasma 946 Output: Chest Tube #1 2120 Chest Tube #2 600 Rowan 2840 90 41 3 Estimated Blood Loss 200 Tube Feeding Residual 780 Amount Wasted Suctioning 350 500 Other: Date of Last Bowel 10/13/2018 Movement # Bowel Movements 0 0 1 Estimated Stool Amount Medium PEX: Ventilated and sedated Right chest tubes in place. Markedly decreased breath sounds on right No leak from tubes, decreased sanguinous drainage in both pleuravacs Laboratory Last Values WBC 23.3 10^3/ul (3.5-10.8) H 10/13/18 08:25 RBC 2.82 10^6/ul (4.00-5.40) L 10/13/18 08:25 Hgb 8.4 g/dl (14.0-18.0) L 10/13/18 08:25 Hct 25 % (42-52) L 10/13/18 08:25 MCV 89 fL (80-94) 10/13/18 08:25 MCH 30 pg (27-31) 10/13/18 08:25 MCHC 34 g/dl (31-36) 10/13/18 08:25 RDW 15 % (10.5-15) 10/13/18 08:25 Plt Count 168 10^3/ul (150-450) 10/13/18 08:25 MPV 9.3 fL (7.4-10.4) 10/13/18 08:25 Neut % (Auto) 85.1 % 10/11/18 12:05 Lymph % (Auto) 5.3 % 10/11/18 12:05 Dent % (Auto) 7.1 % 10/11/18 12:05 Eos % (Auto) 1.0 % 10/11/18 12:05 Baso % (Auto) 1.5 % 10/11/18 12:05 Absolute Neuts (auto) 14.0 10^3/ul (1.5-7.7) H 10/11/18 12:05 Absolute Lymphs (auto) 0.9 10^3/ul (1.0-4.8) L 10/11/18 12:05 Absolute Monos (auto) 1.2 10^3/ul (0-0.8) H 10/11/18 12:05 Absolute Eos (auto) 0.2 10^3/ul (0-0.6) 10/11/18 12:05 Absolute Basos (auto) 0.2 10^3/ul (0-0.2) 10/11/18 12:05 Absolute Nucleated RBC 0 10^3/ul 10/11/18 12:05 Immature Gran % 4 % (0-9) 10/04/18 06:15 Neutrophils % 87 % 10/04/18 06:15 Band Neutrophils % 1 % (0-8) 10/04/18 06:15 Lymphocytes % 5 % 10/04/18 06:15 Monocytes % 3 % 10/04/18 06:15 Basophils % 1 % 10/04/18 06:15 Myelocytes % 3 % (0-1) H 10/04/18 06:15 Nucleated RBC % 0 10/11/18 12:05 Abs Neuts (Manual) 14.1 10^3/ul (1.5-7.7) H 10/04/18 06:15 Abs Lymphs (Manual) 0.78 10^3/ul (1.0-4.8) L 10/04/18 06:15 Abs Monocytes (Manual) 0.47 10^3/ul (0-0.8) 10/04/18 06:15 Abs Basophils (Manual) 0.16 10^3/ul (0-0.2) 10/04/18 06:15 Normal RBC Morphology Normal (Normal) 10/04/18 06:15 INR (Anticoag Therapy) 1.51 (0.77-1.02) H 10/13/18 05:20 APTT 60.9 seconds (26.0-36.3) H 10/01/18 06:00 Patient Temperature Not Reportable 10/07/18 20:10 ABG pH 7.42 (7.35-7.45) 10/07/18 20:10 ABG pH (Temp Correct) Not Reportable 10/07/18 20:10 ABG pCO2 56 mmHg (35-45) H 10/07/18 20:10 ABG pCO2 (Temp Corrct Not Reportable 10/07/18 20:10 ABG pO2 64 mmHg (80-100) L 10/07/18 20:10 ABG pO2 (Temp Correct Not Reportable 10/07/18 20:10 ABG HCO3 32.7 mmol/L (19-31) H 10/07/18 20:10 ABG O2 Saturation 94.3 % (95-98) L 10/07/18 20:10 ABG Base Excess 10.1 (-2.0-2.0) H 10/07/18 20:10 Respiration Rate Not Reportable 10/07/18 20:10 O2 Delivery Device salter 10/07/18 20:10 Ventilator Type Not Reportable 10/07/18 20:10 Vent Mode Not Reportable 10/07/18 20:10 FiO2 Not Reportable 10/07/18 20:10 Inspiratory Time Not Reportable 10/07/18 20:10 PEEP Not Reportable 10/07/18 20:10 Pressure Support Not Reportable 10/07/18 20:10 Pressure Control Not Reportable 10/07/18 20:10 EPAP Not Reportable 10/07/18 20:10 IPAP Not Reportable 10/07/18 20:10 BiPAP Not Reportable 10/07/18 20:10 Sodium 140 mmol/L (135-145) 10/13/18 05:20 Potassium 6.6 mmol/L (3.5-5.0) H* 10/13/18 05:20 Chloride 109 mmol/L (101-111) 10/13/18 05:20 Carbon Dioxide 22 mmol/L (22-32) 10/13/18 05:20 Anion Gap 9 mmol/L (2-11) 10/13/18 05:20 BUN 53 mg/dL (6-24) H 10/13/18 05:20 Creatinine 2.90 mg/dL (0.67-1.17) H 10/13/18 05:20 Est GFR ( Amer) 26.3 (>60) 10/13/18 05:20 Est GFR (Non-Af Amer) 21.7 (>60) 10/13/18 05:20 BUN/Creatinine Ratio 18.3 (8-20) 10/13/18 05:20 Glucose 147 mg/dL (70-100) H 10/13/18 05:20 POC Glucose (mg/dL) 162 mg/dL (70-100) H 10/13/18 05:23 Hemoglobin A1c 6.2 % (4.0-5.6) H 09/27/18 05:15 Lactic Acid 3.8 mmol/L (0.5-2.0) H* 10/13/18 05:20 Calcium 6.5 mg/dL (8.6-10.3) L 10/13/18 05:20 Phosphorus 2.9 mg/dL (2.5-5.0) 10/02/18 06:00 Magnesium 1.6 mg/dL (1.9-2.7) L 10/11/18 05:22 Total Bilirubin 1.90 mg/dL (0.2-1.0) H 10/13/18 05:20 AST 2932 U/L (13-39) H 10/13/18 05:20 ALT 2207 U/L (7-52) H 10/13/18 05:20 Alkaline Phosphatase 112 U/L (34-104) H 10/13/18 05:20 Total Creatine Kinase 45 U/L (10-223) 09/27/18 05:15 Troponin I 0.03 ng/mL (<0.04) 10/04/18 21:57 C-Reactive Protein 366.29 mg/L (<8.01) H 09/26/18 14:05 B-Natriuretic Peptide 171 pg/mL (<=100) H 09/26/18 14:05 Total Protein 3.5 g/dL (6.4-8.9) L 10/13/18 05:20 Albumin 1.8 g/dL (3.2-5.2) L 10/13/18 05:20 Globulin 1.7 g/dL (2-4) L D 10/13/18 05:20 Albumin/Globulin Ratio 1.1 (1-3) 10/13/18 05:20 TSH 5.08 mcIU/mL (0.34-5.60) 09/27/18 05:15 Urine Color Yellow 09/26/18 16:28 Urine Appearance Cloudy 09/26/18 16:28 Urine pH 5.0 (5-9) 09/26/18 16:28 Ur Specific Casper 1.015 (1.010-1.030) 09/26/18 16:28 Urine Protein Negative (Negative) 09/26/18 16:28 Urine Ketones Negative (Negative) 09/26/18 16:28 Urine Blood Negative (Negative) 09/26/18 16:28 Urine Nitrate Negative (Negative) 09/26/18 16:28 Urine Bilirubin Negative (Negative) 09/26/18 16:28 Urine Urobilinogen Negative (Negative) 09/26/18 16:28 Ur Leukocyte Esterase Negative (Negative) 09/26/18 16:28 Urine Glucose Negative (Negative) 09/26/18 16:28 Fluid Source Pleural fluid 10/07/18 13:20 Fluid Volume 8 mL 10/07/18 13:20 Fluid Color Yellow 10/07/18 13:20 Fluid Appearance Cloudy 10/07/18 13:20 Fluid WBC 1184 /mcL (0-512800) 10/07/18 13:20 Fluid RBC 757 /mcL 10/07/18 13:20 Fluid Tot Cell Count 100 10/07/18 13:20 Fluid Neutrophils 56 % 10/07/18 13:20 Fluid Lymphocytes 16 % 10/07/18 13:20 Fluid Monocytes 28 % 10/07/18 13:20 Fluid Other Cells 11 10/07/18 13:20 Fluid Cell Count Rvw By 10/07/18 13:20 Fluid Total Protein 2.7 g/dL 10/07/18 13:20 Fluid LDH 182 U/L 10/07/18 13:20 Vancomycin Trough 20.3 mcg/mL 10/12/18 12:35 Mycoplasma pneumon IgG Positive (Negative) A 09/26/18 17:10 Mycoplasma pneumon IgM Negative (Negative) 09/26/18 17:10 Blood Type A Positive 10/11/18 12:05 Antibody Screen Negative 10/11/18 12:05 Crossmatch See Detail 10/11/18 12:05 CXR reviewed--still with large amount of fluid/blood in right chest-??PTX on right Assessment: Hemorrhage right chest-??etiology S/P placement of 2 right chest tubes Plan: Continue transfusions Hemodynamics improved-weaning levophed and vasopression, acidosis correcting Continue chest tube drainage Transfuse, correct coagulopathy Consider OR for thoracotomy?? All discussed with Dr. Lynn
[2018-10-13 13:40] LABS: Hematocrit 22 % (42-52); Hemoglobin 7.5 g/dl (14.0-18.0); Mean Corpuscular HGB Conc 34 g/dl (31-36); Mean Corpuscular Hemoglobin 30 pg (27-31); Mean Corpuscular Volume 89 fL (80-94); Mean Platelet Volume 8.9 fL (7.4-10.4); Platelet Count 161 10^3/ul (150-450); Red Blood Count 2.48 10^6/ul (4.00-5.40); Red Cell Distribution Width 15 % (10.5-15); White Blood Count 20.9 10^3/ul (3.5-10.8)
[2018-10-13 13:47] LABS: INR 1.37 (0.77-1.02)
--- NOTE | 2018-10-13 15:36 | PN ---
Date of Service: 10/13/18 Critical Care Services: Hemoglobin down to 5.5 g/dL last night, and transfused 2 units PRBCs, with repeat hemoglobin up to 8.4 g/dL. Also received 2 units of FFP, and most recent INR is < 1.4. Vital Signs: Temp Pulse Resp BP SpO2 FiO2 97.9 F 72 12 110/57 99 100 Physical Exam: Gen:Unresponsive (on fentanyl drip). HEENT:Pupls midposition and reactive Lungs:Decreased BS on right. Cardiac: Reg rhythm Extremities: cool but not cyanotic Fluid Balance (Past 24 Hours): 10/12/18 10/13/18 06:59 06:59 Intake Total 8520.8 5285.0 Output Total 440 3461 Balance 8080.8 1824.0 Weight 184 lb Intake: IV Fluids 1801 3411 Calcium Chloride 110 LR 593 2444 NS (0.9%) 877 136 NSS 171 PRBCs 691 Protamine 50 abx 140 IVPB 110 197 ABX - ZOSYN 197 NSS abx 110 Medicated IV 2390.8 1677.0 CC - Norepinephrine/ 2372 1603 Levophed CC - Propofol/Diprivan fentanyl 9.3 vasopressin 18.8 64.7 Oral 0 0 Tube Feeding 1355 Tube Feeding Flush Amount 430 Packed Cells 1488 Fresh Frozen Plasma 946 Output: Chest Tube #1 2120 Chest Tube #2 600 Rowan 90 41 Estimated Blood Loss 200 Tube Feeding Residual Amount Wasted Suctioning 350 500 Other: Date of Last Bowel 10/13/2018 Movement # Bowel Movements 0 1 Estimated Stool Amount Medium Labs: Laboratory Results - last 24 hr 10/11/18 10/12/18 10/12/18 12:05 15:43 15:43 WBC 18.6 H RBC 2.08 L Hgb 6.1 L* Hct 18 L MCV 87 MCH 29 MCHC 34 RDW 15 Plt Count 144 L MPV 8.8 INR (Anticoag Therapy) Sodium 141 Potassium 6.9 H* Chloride 108 Carbon Dioxide 23 Anion Gap 10 BUN 45 H Creatinine 2.48 H Est GFR ( Amer) 31.5 Est GFR (Non-Af Amer) 26.1 BUN/Creatinine Ratio 18.1 Glucose 180 H POC Glucose (mg/dL) Lactic Acid Calcium 7.3 L Total Bilirubin AST ALT Alkaline Phosphatase Total Protein Albumin Globulin Albumin/Globulin Ratio Blood Type A Positive Antibody Screen Negative Crossmatch See Detail 10/12/18 10/12/18 10/12/18 15:43 15:43 18:09 WBC RBC Hgb Hct MCV MCH MCHC RDW Plt Count MPV INR (Anticoag Therapy) 1.67 H Sodium Potassium Chloride Carbon Dioxide Anion Gap BUN Creatinine Est GFR ( Amer) Est GFR (Non-Af Amer) BUN/Creatinine Ratio Glucose POC Glucose (mg/dL) 200 H Lactic Acid 4.8 H* Calcium Total Bilirubin AST ALT Alkaline Phosphatase Total Protein Albumin Globulin Albumin/Globulin Ratio Blood Type Antibody Screen Crossmatch 10/12/18 10/12/18 10/13/18 23:45 23:49 05:20 WBC RBC Hgb 5.5 L* Hct 16 L MCV MCH MCHC RDW Plt Count MPV INR (Anticoag Therapy) Sodium 140 Potassium 6.6 H* Chloride 109 Carbon Dioxide 22 Anion Gap 9 BUN 53 H Creatinine 2.90 H Est GFR ( Amer) 26.3 Est GFR (Non-Af Amer) 21.7 BUN/Creatinine Ratio 18.3 Glucose 147 H POC Glucose (mg/dL) 183 H Lactic Acid Calcium 6.5 L Total Bilirubin 1.90 H AST 2932 H ALT 2207 H Alkaline Phosphatase 112 H Total Protein 3.5 L Albumin 1.8 L Globulin 1.7 L D Albumin/Globulin Ratio 1.1 Blood Type Antibody Screen Crossmatch 10/13/18 10/13/18 10/13/18 05:20 05:20 05:23 WBC RBC Hgb Hct MCV MCH MCHC RDW Plt Count MPV INR (Anticoag Therapy) 1.51 H Sodium Potassium Chloride Carbon Dioxide Anion Gap BUN Creatinine Est GFR ( Amer) Est GFR (Non-Af Amer) BUN/Creatinine Ratio Glucose POC Glucose (mg/dL) 162 H Lactic Acid 3.8 H* Calcium Total Bilirubin AST ALT Alkaline Phosphatase Total Protein Albumin Globulin Albumin/Globulin Ratio Blood Type Antibody Screen Crossmatch 10/13/18 10/13/18 10/13/18 08:25 11:49 13:22 WBC 23.3 H 20.9 H RBC 2.82 L 2.48 L Hgb 8.4 L 7.5 L Hct 25 L 22 L MCV 89 89 MCH 30 30 MCHC 34 34 RDW 15 15 Plt Count 168 161 MPV 9.3 8.9 INR (Anticoag Therapy) Sodium Potassium Chloride Carbon Dioxide Anion Gap BUN Creatinine Est GFR ( Amer) Est GFR (Non-Af Amer) BUN/Creatinine Ratio Glucose POC Glucose (mg/dL) 151 H Lactic Acid Calcium Total Bilirubin AST ALT Alkaline Phosphatase Total Protein Albumin Globulin Albumin/Globulin Ratio Blood Type Antibody Screen Crossmatch 10/13/18 13:22 WBC RBC Hgb Hct MCV MCH MCHC RDW Plt Count MPV INR (Anticoag Therapy) 1.37 H Sodium Potassium Chloride Carbon Dioxide Anion Gap BUN Creatinine Est GFR ( Amer) Est GFR (Non-Af Amer) BUN/Creatinine Ratio Glucose POC Glucose (mg/dL) Lactic Acid Calcium Total Bilirubin AST ALT Alkaline Phosphatase Total Protein Albumin Globulin Albumin/Globulin Ratio Blood Type Antibody Screen Crossmatch Studies: CXR: Large pleural effusion on right with apical air (hydropneumothorax) Nutrition: Tube feedings held because of appearance of subglottic aspirate. Impression: 1. Bleeding appears to have decreased, but unsure if it has completely stopped. 2. Continued vasopressor dependence (current levophed dose is 14 mcg/min) 3. Progressive ISABEL with hyperkalemia Plan: Total transfusion requirement has been 13 units PRBCs, 8 units FFP plus cryoprecipitate. At this point, surgery seems to be indicated (both to find the site of bleeding, and to clear blood from the pleural space to prevent a trapped lung. Dr Calvillo (Surgery service) has spoken to a thoracic surgeon at [facility] (Dr. Josh Cartaegna), who has agreed to take the patient in transfer. I have presented this option to the family and they agree to the trans Critical Care Time: 60
[2018-10-13 22:12] LABS: Hematocrit 23 % (42-52); Hemoglobin 7.6 g/dl (14.0-18.0)
[2018-10-14] MEDS: CHLORHEXADINE (PERIDEX) VENT ORAL CARE TOPICAL SCH ×7 (00:48→23:34)
[2018-10-14] MEDS: Insulin LISPRO* 1 UNITS UNIT SUBCUT SCH ×5 (00:48→23:39)
[2018-10-14] MEDS: ZOSYN 3.375 GM Q8H per EXTENDED INFUSION IVPB SCH ×2 (05:42)
[2018-10-14 06:00] LABS: Hematocrit 22 % (42-52); Hemoglobin 7.5 g/dl (14.0-18.0); Mean Corpuscular HGB Conc 34 g/dl (31-36); Mean Corpuscular Hemoglobin 30 pg (27-31); Mean Corpuscular Volume 89 fL (80-94); Platelet Count 210 10^3/ul (150-450); Red Blood Count 2.49 10^6/ul (4.00-5.40); Red Cell Distribution Width 15 % (10.5-15); White Blood Count 24.8 10^3/ul (3.5-10.8)
[2018-10-14] MEDS: Norepinephrine VIAL* 8 MG in NS 0.9% 500 ML* 492 ML IV SCH ×3 (06:03→12:29)
[2018-10-14] MEDS: Levothyroxine TAB* 75 MCG TAB PO SCH (06:06)
[2018-10-14 06:18] LABS: Albumin 2.1 g/dL (3.2-5.2); BUN/Creatinine Ratio 16.7 (8-20); Calcium 6.9 mg/dL (8.6-10.3); EGFR Non-African American 14.7 (>60); Globulin 2.2 g/dL (2-4); Total Bilirubin 1.5 mg/dL (0.2-1.0); Total Protein 4.3 g/dL (6.4-8.9)
[2018-10-14 06:33] LABS: Potassium 6.9 mmol/L (3.5-5.0)
[2018-10-14] MEDS: Lactated Ringers 1000 ML Bag* 1,000 ML IV SCH ×2 (07:32→14:14)
[2018-10-14] MEDS: Hydrocortisone INJ* 100 MG VIAL IV SCH (07:33)
[2018-10-14 09:18] LABS: Magnesium 2.1 mg/dL (1.9-2.7)
[2018-10-14] MEDS: Famotidine IV* 10 MG/ML 2 ML (20 mg) IV SCH (10:29)
[2018-10-14] MEDS: fentaNYL INFUSION 50 MCG/ML* 2,500 MCG/50 ML BAG IV SCH (11:25)
--- NOTE | 2018-10-14 11:37 | PN ---
Date of Service: 10/14/18 Critical Care Services: Bleeding appears to have subsided, with hemoglobin unchanged over past 24 hrs. Vasopressor support down from vasopressin plus levophed (at 30 mcg/min) to levophed alone at 10 mcg/min. Chest film shows large right-sided hydropneumothorax, unchanged from yesterday. Chest tubes draining much less (? clotted) Other problems: 1. Renal failure - creatinine up to 4 mg/dL with K = 6.8 (no ECG changes) 2. Gastroparesis - gastric residuals yesterday were 900 mls, so tube feedings have been held. 3. ? ischemic hepatitis - transaminases yesterday in the 2,000 range, and are lower today Vital Signs: Temp Pulse Resp BP SpO2 FiO2 98.1 F 63 18 95/52 96 60 Physical Exam: Gen:Unresponsive (on fentanyl at 100 mcg/kg/min) HEENT:Pupils small but reactive Lungs: coarse airway sounds on both sides and decreased breath sounds on right Cardiac: Irreg rhythm Abdomen:Not distended Extremities:cool. no cyanosis Fluid Balance (Past 24 Hours): 10/13/18 10/14/18 06:59 06:59 Intake Total 5285.0 5340.6 Output Total 3461 903 Balance 1824.0 4437.6 Weight 184 lb 1.376 oz 193 lb 1.999 oz Intake: IV Fluids 3411 3924.6 ABX - ZOSYN 166 Calcium Chloride LR 2444 3641 NS (0.9%) 136 117.6 NSS PRBCs 691 Protamine abx 140 IVPB 197 144 ABX - ZOSYN 197 144 abx Medicated IV 1677.0 1272 CC - Norepinephrine/ 1603 1272 Levophed fentanyl 9.3 vasopressin 64.7 Oral 0 Tube Feeding Tube Feeding Flush Amount Packed Cells Fresh Frozen Plasma Output: Chest Tube #1 2120 10 Chest Tube #2 600 110 Rowan 41 3 Estimated Blood Loss 200 Tube Feeding Residual 780 Amount Wasted Suctioning 500 Other: Date of Last Bowel 10/13/2018 10/13/18 Movement # Bowel Movements 1 1 Estimated Stool Amount Medium Small Labs: 10/13/18 10/14/18 10/14/18 22:04 00:46 05:50 Hgb 7.6 Hct 23 MCV MCH MCHC RDW Plt Count MPV Haptoglobin INR (Anticoag Therapy) Sodium 140 Potassium 6.9 Chloride 108 Carbon Dioxide 23 Anion Gap 9 BUN 68 H Creatinine 4.07 H Est GFR ( Amer) 17.8 Est GFR (Non-Af Amer) 14.7 BUN/Creatinine Ratio 16.7 Glucose 132 H POC Glucose (mg/dL) 144 H Lactic Acid Calcium 6.9 L Magnesium 2.1 Total Bilirubin 1.50 H AST 1141 H ALT 1651 H Alkaline Phosphatase 163 H Ammonia Total Creatine Kinase 312 H Total Protein 4.3 L Albumin 2.1 L Globulin 2.2 Albumin/Globulin Ratio 1.0 Blood Type Antibody Screen Crossmatch 10/14/18 10/14/18 10/14/18 05:50 05:50 05:53 WBC 24.8 Hgb 7.5 Hct 22 MCV 89 MCH 30 MCHC 34 RDW 15 Plt Count 210 MPV 8.0 Haptoglobin INR (Anticoag Therapy) Sodium Potassium Chloride Carbon Dioxide Anion Gap BUN Creatinine Est GFR ( Amer) Est GFR (Non-Af Amer) BUN/Creatinine Ratio Glucose POC Glucose (mg/dL) 139 H Lactic Acid Calcium Magnesium Total Bilirubin AST ALT Alkaline Phosphatase Ammonia 65 H Total Creatine Kinase Total Protein Albumin Globulin Albumin/Globulin Ratio Blood Type Antibody Screen Crossmatch 10/14/18 09:15 Lactic Acid 1.0 Studies: CXR: as mentioned above Nutrition: TPN to be started today Impression: Bleeding has stopped and major problems now include renal failure, residual hemothorax, continued vasopressor requirement, and high gastric residuals. Plan: Plan is for transfer to [facility] today (to the service of Dr. Josh Cartagena) for consideration of thoracotomy. In the meantime, will continue to taper levophed as tolerated, and will start TPN feedings today. Will also ask renal service about hemodialysis if unable to transfer today. Critical Care Time: 60 minutes
[2018-10-14] MEDS ORDERED: fentaNYL INFUSION 50 MCG/ML* 2,500 MCG/50 ML BAG IV SCH ×2 (12:00→13:17)
[2018-10-14] MEDS ORDERED: Sodium Polystyrene RECTAL* 30 GM/120 ML RECTAL.SUS PR ONE ×2 (12:14→20:00)
[2018-10-14] MEDS ORDERED: CALCIUM GLUCONATE TPN CENT\\PICC SCH ×9 (17:00)
[2018-10-14] MEDS ORDERED: [UNRECOGNIZED DRUG - OTHER] CENT\\PICC SCH ×9 (17:00)
[2018-10-14] MEDS ORDERED: SODIUM CHLORIDE CENT\\PICC SCH ×9 (17:00)
[2018-10-14] MEDS ORDERED: TPN CENT\\PICC SCH ×9 (17:00)
[2018-10-14] MEDS: ZOSYN 3.375 GM Q12H per EXTENDED INFUSION IVPB SCH ×2 (17:30)
[2018-10-14 18:01] LABS: Hematocrit 21 % (42-52); Mean Corpuscular HGB Conc 34 g/dl (31-36); Mean Corpuscular Hemoglobin 31 pg (27-31); Mean Corpuscular Volume 92 fL (80-94); Platelet Count 239 10^3/ul (150-450); Red Blood Count 2.27 10^6/ul (4.00-5.40); Red Cell Distribution Width 15 % (10.5-15); White Blood Count 26.2 10^3/ul (3.5-10.8)
[2018-10-14 18:16] LABS: BUN/Creatinine Ratio 17.1 (8-20); Calcium 6.6 mg/dL (8.6-10.3); EGFR Non-African American 13.1 (>60)
--- NOTE | 2018-10-14 23:08 | DS ---
DISCHARGE SUMMARY: DATE OF ADMISSION: 09/26/18 DATE OF DISCHARGE: 10/14/18 HOSPITAL COURSE: The patient is a 68-year-old white male with a history of hypertension, hypothyroidism, and head and neck cancer (s/p resection of a tonsilar CA 7 years ago), who was admitted from the emergency department on 12/13 with a community-acquired pneumonia, respiratory failure, and septic shock. No organism was isolated and the patient improved with empiric antibiotics and vasopressors. The patient was eventually extubated, but over the next 2 weeks, he experienced recurrent episodes of respiratory distress and required 2 additional intubations, all presumably related to problems with aspiration. The patient had a total of 3 bronchoscopies performed, all revealing aspirated material in the upper airway. The other major problem during the hospitalization was a hemothorax with hemorrhangic shock, which (presumably) began on 10/07/18, when the patient had a right-sided thoracentesis for a parapneumonic effusion (tap was not bloody). On 10/09/18, the patient was started on full anticoagulation with Lovenox because of atrial fibrillation, and the following day, the patient's hemoglobin dropped from 11 to 7 and he was placed on Levophed for hypotension. A chest x- ray then revealed a large right-sided pleural effusion and needle aspiration revealed blood. The patient subsequently received a right-sided chest tube with return of 2 liters of blood. The lovenox was reversed with protamine and, over the next 48 hours, the patient received a total of 13 units of packed cells and about 8 units of fresh frozen plasma, along with cryoprecipitate. The patient also required vasopressor support with Levophed at 30 mcg per minute and vasopressin at 0.04 U per minute. During that time, the serum lactate level joseline to 14 mmol/L, and the creatinine steadily increased to 4 mg/ dL. Over the past 48 hours, lactate levels have returned to normal, vasopressor requirement has decreased (the patient currently on Levophed at 10 mcg per minute and no longer requires double vasopressor support), and active hemorrhage from the chest appears to have subsided, with hemoglobin steady in the mid 7s over the last 24 hours. Additional problems include probable gastroparesis with return of 900 cc gastric residual on 10/13/18, and the patient started on TPN on 10/14/18. Associated with the increase in creatinine and increase in serum potassium with serum levels up to 6.8 that have not had accompanying EKG changes. The patient has received lactulose enemas in an attempt to control serum potassium (hemodialysis may eventually be necessary). The most pressing problem is a massive hemothorax, presumably due to the combination of a thoracentesis and subsequent anticoagulation, and the most recent chest x-ray shows considerable amount of blood in the right hemothorax despite drainage with 2 chest tubes. Since there seems to be a need for a thoracotomy in this case, consultation was obtained with Dr. Josh Cartagena at [facility] and he has agreed to take the patient in transfer. The other pressing problem is acute, oliguric renal failure, that will likely require dialysis (because of hyporkalemia and fluid accumulation). FINAL DIAGNOSES: 1. Recurrent aspiration pneumonia with respiratory failure. 2. Hemothorax. 3. Massive transfusion. 4. Acute oliguric kidney injury. 5. Hyperkalemia without EKG effects. 6. Bowel hypomotility, requiring temporary TPN. MEDICATIONS ON TRANSFER: 1. Fentanyl infusion 50 mcg hourly. 2. Famotidine 20 mg IV daily. 3. Levothyroxine 37.5 mcg IV daily. 4. Levophed 8 mcg per minute. 5. Zosyn 3.375 g IV every 12 hours. 6. Chlorhexidine 15 mL topically in the mouth q.4 hours. 7. TPN [id number]/[facility] #: [id number] MTDD
[2018-10-14 23:56] LABS: BUN/Creatinine Ratio 17.3 (8-20); Calcium 6.7 mg/dL (8.6-10.3); EGFR Non-African American 12.4 (>60)
[2018-10-14 23:57] LABS: Potassium 6.7 mmol/L (3.5-5.0)
[2018-10-15] MEDS: CHLORHEXADINE (PERIDEX) VENT ORAL CARE TOPICAL SCH ×3 (03:17→13:19)
[2018-10-15] MEDS: Norepinephrine VIAL* 8 MG in NS 0.9% 500 ML* 492 ML IV SCH ×3 (03:17→13:19)
[2018-10-15] MEDS: ZOSYN 3.375 GM Q12H per EXTENDED INFUSION IVPB SCH ×2 (05:24)
[2018-10-15] MEDS ORDERED: Levothyroxine INJ* 100 MCG/5 ML VIAL IV SCH (06:00)
[2018-10-15 06:08] LABS: Hematocrit 24 % (42-52); Hemoglobin 7.9 g/dl (14.0-18.0); Mean Corpuscular HGB Conc 33 g/dl (31-36); Mean Corpuscular Hemoglobin 31 pg (27-31); Mean Corpuscular Volume 94 fL (80-94); Mean Platelet Volume 8.1 fL (7.4-10.4); Platelet Count 363 10^3/ul (150-450); Red Blood Count 2.57 10^6/ul (4.00-5.40); Red Cell Distribution Width 15 % (10.5-15); White Blood Count 40.5 10^3/ul (3.5-10.8)
[2018-10-15 06:25] LABS: Albumin 2.2 g/dL (3.2-5.2); Albumin/Globulin Ratio 0.9 (1-3); BUN/Creatinine Ratio 17.3 (8-20); Calcium 6.9 mg/dL (8.6-10.3); EGFR Non-African American 11.9 (>60); Globulin 2.5 g/dL (2-4); Indirect Bilirubin 0.5 mg/dL (0.3-1.0); Total Bilirubin 1.1 mg/dL (0.2-1.0); Total Protein 4.7 g/dL (6.4-8.9)
[2018-10-15 06:27] LABS: Potassium 6.3 mmol/L (3.5-5.0)
[2018-10-15] MEDS: Insulin LISPRO* 1 UNITS UNIT SUBCUT SCH ×2 (06:32→13:19)
[2018-10-15] MEDS: Famotidine IV* 10 MG/ML 2 ML (20 mg) IV SCH (07:17)
[2018-10-15] MEDS ORDERED: fentaNYL* 50 MCG/ML 2 ML VIAL (100 MCG VIAL) ONE (08:38)
[2018-10-15] MEDS ORDERED: Famotidine IV * 20 MG in NS 0.9% 100 ML* 100 ML IVPB SCH (09:00)
[2018-10-15] MEDS ORDERED: LORazepam INJ* 2 MG/ML 1 ML VIAL ONE (09:19)
--- NOTE | 2018-10-15 11:10 | CONS ---
NEPHROLOGY CONSULTATION REPORT: DATE OF CONSULT: HISTORY OF PRESENT ILLNESS: Mr. Horn is a 68-year-old gentleman with a history of a tonsillar car cinoma 7 years ago, who was brought to the emergency room because of community-acquired pneumonia and respiratory failure and septic shock. He had a large pleural effusion and he underwent a thoracente sis that has been complicated by significant hemothorax and he required multiple units of blood. He continues to be intubated and ventilated. He has required high dose vasopressors; however, these hav e been getting decreased over time. PAST MEDICAL HISTORY: Significant for hypertension and hypothyroidism. MEDICATIONS: Included: 1. Amlodipine. 2. Valsartan/hydrochlorothiazide. 3. Levothyroxine. The doses are not included in the record as I cannot find them. SOCIAL HISTORY: He apparently smokes about a half pack of cigarettes per day. PHYSICAL EXAMINATION: At the present time he is intubated and ventilated, he is unresponsive. His b lood pressure is 137/76 with a pulse of 90, respirations are 13. He is afebrile. He has significant chemosis. He is anicteric. His eyes do not track. He has a scar of his previous surgery to the right side of his neck. The chest revealed harsh rhonchi partic ularly to the right. The heart revealed an irregular rhythm. The abdomen is significant. There are reduced bowel sounds. Bones, joints, extremities revealed trace edema. Of significance, he has had essentially no urine output, now 4 days. DIAGNOSTIC STUDIES/LAB DATA: A review of his laboratory studies reveals a white count of 40,500, hem oglobin 7.9, hematocrit 24. Sodium 141, potassium 6.3, total CO2 of 20, chloride 109. BUN 85; creat inine 4.90, it was 3.45 on admission but had come down as low as 0.69 on 10/08/18. His creatinine grimaldo s been going up progressively since. Lactic acid of 1 but has been as high as 14.3 on 10/12/18. Calc ium 6.9 with an albumin of 2.2, phosphorus of 2.9. His ammonia is 65. There is no current urinalysi s, but it was unremarkable on 09/26/18. IMPRESSION: 1. Acute renal failure which is anuric. 2. Community-acquired pneumonia. 3. Hemothorax. 4. History of atrial fibrillation. 5. Hypothyroidism. 6. Hypertension. PLAN: He is going to need hemodialysis. Apparently, Dr. Lynn feels he is going to have a very dif ficult time with dialysis access. There has been discussion of transferring the patient for continue d care. It is not clear to me what the timing of that is going to be, it is going to be difficult to get a nurse in to dialyze him before late this afternoon. If a transfer can be accomplished before then, I think that is reasonable, otherwise we will proceed with hemodialysis this afternoon. I have discussed the case with Dr. Lynn at length. [id number]/[facility] #: [id number]
[2018-10-15 11:16] LABS: Hepatitis B Surface AB Immune (Immune)
[2018-10-15 11:26] LABS: Hepatitis B Surface Antigen Nonreactive (Nonreactive)
[2018-10-15 11:52] LABS: Hepatitis C Antibody Nonreactive (Nonreactive)
[2018-10-15] MEDS ORDERED: Morphine VIAL* 10 MG/ML 1 ML VIAL IV ONE (15:15)
[2018-10-15] MEDS ORDERED: LORazepam INJ* 2 MG/ML 1 ML VIAL IV PUSH ONE (15:15)
[2018-10-15] MEDS ORDERED: LORazepam VIAL (for drip)* 100 MG in D5W 50 ML BAG* 50 ML IVPB SCH (15:30)
[2018-10-15] MEDS ORDERED: Morphine VIAL* 10 MG/ML 1 ML VIAL ONE (15:51)
[2018-10-15] MEDS ORDERED: Morphine PCA* 150 MG in PREMIX PCA SCH (16:00)
[2018-10-15 16:06] VITALS: BP 103/45
--- NOTE | 2018-10-16 09:37 | DS ---
SUMMARY: DATE OF ADMISSION: 09/26/18. DATE OF : 10/15/18. TIME OF : 5:20 p.m. HISTORY: Please refer to discharge summary dictated on 10/14/18 for a summary of this patient's hospital course. Final problems during the hospitalization included hemothorax with hemorrhagic shock and acute renal failure. Because of the multiple organ failures that occurred during the hospitalization and the irreversible nature of such failures, the patient's healthcare proxy decided to forego all medical interventions and to institute "comfort measures care" only. This was done in the afternoon on 10/15/18 (all treatments were discontinued including mechanical ventilation). Family was present at the bedside and the patient was pronounced at 5:22 p.m. on 10/15/18. FINAL DIAGNOSES: 1. Recurrent aspiration pneumonia. 2. Nontraumatic hemothorax. 3. Hemorrhagic shock. 4. Acute renal failure. 5. Anoxic encephalopathy. [id number]/[facility] #: [id number] MTDOlimpia
== END 2018-10-15 17:20 | disposition expired | DRG 853 ==
LOC: ED 13:04 → ICU 15:08 → MEDTELE 10-05 15:55 → ICU 10-08 10:19
PROVIDERS: ADMIT Internal Medicine; ATTEND Internal Medicine Critical Care Medicine
PROC: 5A1945Z Respiratory Ventilation, 24-96 Consecutive Hours (ICD-10-PCS; 2018-09-26)
PROC: 04HK33Z Insertion of Infusion Device into Right Femoral Artery, Percutaneous Approach (ICD-10-PCS; 2018-09-26)
PROC: 0BC88ZZ Extirpation of Matter from Left Upper Lobe Bronchus, Via Natural or Artificial Opening Endoscopic (ICD-10-PCS; 2018-09-27)
PROC: 5A1945Z Respiratory Ventilation, 24-96 Consecutive Hours (ICD-10-PCS; 2018-09-30)
PROC: 0B9J8ZZ Drainage of Left Lower Lung Lobe, Via Natural or Artificial Opening Endoscopic (ICD-10-PCS; 2018-10-01)
PROC: 0B9F8ZZ Drainage of Right Lower Lung Lobe, Via Natural or Artificial Opening Endoscopic (ICD-10-PCS; 2018-10-02)
PROC: 5A1935Z Respiratory Ventilation, Less than 24 Consecutive Hours (ICD-10-PCS; 2018-10-02)
PROC: 0W9930Z Drainage of Right Pleural Cavity with Drainage Device, Percutaneous Approach (ICD-10-PCS; 2018-10-07)
PROC: 0B9H8ZX Drainage of Lung Lingula, Via Natural or Artificial Opening Endoscopic, Diagnostic (ICD-10-PCS; principal; 2018-10-08)
PROC: 0BCB8ZZ Extirpation of Matter from Left Lower Lobe Bronchus, Via Natural or Artificial Opening Endoscopic (ICD-10-PCS; 2018-10-08)
PROC: 0BH18EZ Insertion of Endotracheal Airway into Trachea, Via Natural or Artificial Opening Endoscopic (ICD-10-PCS; 2018-10-08)
PROC: 5A09357 Assistance with Respiratory Ventilation, Less than 24 Consecutive Hours, Continuous Positive Airway Pressure (ICD-10-PCS; 2018-10-08)
PROC: 5A1955Z Respiratory Ventilation, Greater than 96 Consecutive Hours (ICD-10-PCS; 2018-10-08)
PROC: 30233N1 Transfusion of Nonautologous Red Blood Cells into Peripheral Vein, Percutaneous Approach (ICD-10-PCS; 2018-10-11)
PROC: 30233R1 Transfusion of Nonautologous Platelets into Peripheral Vein, Percutaneous Approach (ICD-10-PCS; 2018-10-11)
PROC: 0W9930Z Drainage of Right Pleural Cavity with Drainage Device, Percutaneous Approach (ICD-10-PCS; 2018-10-11)
PROC: 3E033XZ Introduction of Vasopressor into Peripheral Vein, Percutaneous Approach (ICD-10-PCS; 2018-10-12)
PROC: 0W9930Z Drainage of Right Pleural Cavity with Drainage Device, Percutaneous Approach (ICD-10-PCS; 2018-10-12)
PROC: 0BH17EZ Insertion of Endotracheal Airway into Trachea, Via Natural or Artificial Opening (ICD-10-PCS; 2018-10-13)
PROC: 5A1945Z Respiratory Ventilation, 24-96 Consecutive Hours (ICD-10-PCS; 2018-10-13)
PROC: 0BP1XDZ Removal of Intraluminal Device from Trachea, External Approach (ICD-10-PCS; 2018-10-13)
PROC: 02HV33Z Insertion of Infusion Device into Superior Vena Cava, Percutaneous Approach (ICD-10-PCS; 2018-10-14)
PROC: 3E0336Z Introduction of Nutritional Substance into Peripheral Vein, Percutaneous Approach (ICD-10-PCS; 2018-10-14)
DX: A41.9 Sepsis, unspecified organism (principal); R65.21 Severe sepsis with septic shock; J96.01 Acute respiratory failure with hypoxia; J69.0 Pneumonitis due to inhalation of food and vomit; J13 Pneumonia due to Streptococcus pneumoniae; N17.9 Acute kidney failure, unspecified; J94.2 Hemothorax; E46 Unspecified protein-calorie malnutrition; J90 Pleural effusion, not elsewhere classified; J98.19 Other pulmonary collapse; G93.1 Anoxic brain damage, not elsewhere classified; I42.9 Cardiomyopathy, unspecified; J44.0 Chronic obstructive pulmonary disease with (acute) lower respiratory infection; I47.2 Ventricular tachycardia; E03.9 Hypothyroidism, unspecified; F17.210 Nicotine dependence, cigarettes, uncomplicated; I48.91 Unspecified atrial fibrillation; M06.9 Rheumatoid arthritis, unspecified; T17.900A Unspecified foreign body in respiratory tract, part unspecified causing asphyxiation, initial encounter; E86.1 Hypovolemia; R57.8 Other shock; E87.5 Hyperkalemia; I50.9 Heart failure, unspecified; I11.0 Hypertensive heart disease with heart failure; K31.84 Gastroparesis; Z85.89 Personal history of malignant neoplasm of other organs and systems
CPT/HCPCS: 31622; 31623; 36415; 36600; 70450; 71045; 72125; 74230; 76604; 80048; 80053; 80076; 80202; 81003; 82140; 82550; 82803; 83010; 83036; 83605; 83615; 83735; 83880; 83986; 84100; 84157; 84443; 84484; 85014; 85018; 85025; 85027; 85610; 85730; 86140; 86706; 86738; 86803; 86850; 86900; 86901; 86922; 86927; 86965; 87040; 87070; 87071; 87077; 87185; 87186; 87205; 87340; 87641; 87899; 88112; 88305; 89051; 90686; 93005; 93306; 94002; 94003; 94640; 94667; 94668; 97530; 99285; 99406; P9012; A9270-GY; C1751; G8978-GP-CK; G8978-GP-CM; G8979-GP-CI; G8987-GO-CL; G8988-GO-CI; J0330; J0456; J0696; J1160; J1644; J1650; J1720; J1940; J1956; J2060; J2250; J2270; J2543; J2704; J2720; J2997; J3010; J3370; J3475; P9016; P9017; P9040; P9045